=== PATIENT | female | born 2000 | race Caucasian/White ===

== ENCOUNTER 2025-04-26 14:20 | Outpatient (CLI) | payer OTHER, SELFPAY ==
[2025-04-26 15:01] LABS: Hematocrit 35.5 % (37.0-47.0); Hemoglobin 12.5 g/dL (12.2-16.2); Immature Granulocytes % 0.4 %; Mean Corpuscular HGB Conc 35.2 g/dL (31.8-35.4); Mean Corpuscular Hemoglobin 29.1 pg (27.0-31.2); Mean Corpuscular Volume 82.8 fl (81-99); Nucleated Red Blood Cells % 0 %; Platelet Count 314 K/mm3 (142-424); Red Blood Count 4.29 M/mm3 (4.20-5.40); Red Cell Distribution Width-SD 37.2 fL; White Blood Count 7.9 K/mm3 (4.8-10.8)
[2025-04-26 16:16] LABS: Hepatitis C Ab Qual. W/ RFX NEGATIVE (Negative)
[2025-04-27 05:48] LABS: Hepatitis B Surface Antigen Negative (Negative); Rubella Antibodies, IgG 1.92 index (Immune >0.99)
[2025-04-27 12:08] LABS: RPR W/RFX Titers Nonreactive (Nonreactive)
== END 2025-04-26 23:59 | disposition home or self-care (01) ==
LOC: LAB 14:21
PROVIDERS: Visit Provider Obstetrics & Gynecology
DX: Z34.01 Encounter for supervision of normal first pregnancy, first trimester (principal)
CPT/HCPCS: 36415; 80074; 84144; 84702; 85025; 86592; 86762; 86850; 87340; 87389

== ENCOUNTER 2025-06-20 10:31 | Outpatient (CLI) | payer OTHER, SELFPAY ==
--- NOTE | 2025-06-20 10:30 | US_ITS ---
PROCEDURE: US OB /MATERNAL DETAIL CLINICAL INDICATION: 20 week anatomy scan in four weeks COMPARISON: No exams were available for comparison FINDINGS: Transabdominal sonographic images of the pelvis were obtained. From her established due date she is 19 weeks 4 days. Single viable intrauterine gestation. Transverse position. Placenta: Anteriorplacenta grade 1. There is an average amount of fluid. The cervix appears satisfactory. Closed and measuring 4.09 cm in length. A posterior contraction is seen. Complete survey performed and was unremarkable on the submitted images as in PACS. No discrete anomalies identified on survey imaging by technologist. Active fetus. Three-vessel cord with satisfactory umbilical cord insertion. Cardiac views were not performed today due to position. Survey of brain & ventricles Unremarkable. Cerebellum, thalamus, choroid plexus, cisterna magna appear normal. Face and neck survey unremarkable. Profile, nasion, lips and nose appeared normal. Diaphragm and chest views unremarkable. Abdomen: Both kidneys noted and unremarkable. There is mild bilateral renal pelvis dilation measuring 5.0 mm and 4.5 mm Stomach and bladder noted and satisfactory. Spine: Survey of the spine satisfactory with no anomalies identified nor imaged. Cervical, thoracic, lower spine appear normal. Both arms and legs noted. Amniotic Fluid: Adequate. MVP 3.61 cm Measurements: Average ultrasound age 19weeks 6days. Estimated due date by ultrasound age 0211/08/2025. Estimated weight 309g BPD = 19weeks 5days HC = 19weeks 6days AC = 19weeks 6days FL = 19weeks 5days Growth Percentile= 53 Heart Rate = 144bpm Cerebellum = 19weeks 2days Humerus = 19weeks 6days HC/AC is 1.2 FL/BPD is 0.69 FL/AC is 0.22 IMPRESSION: 1. Viable fetus in the transverse position with an anterior placenta grade 1. 2. The fluid is within normal limits with an MVP 3.61 cm. 3. Cardiac scan was not performed today secondary to position. Would suggest the patient return in 2 weeks for repeat views. 4. There is mild bilateral renal pelvis dilation measuring 4.5 mm and 5.0 mm. Suggest repeat views at 28 weeks to see the renal pelves. 5. The rest of the anatomical scan appears normal. 6. biometry is consistent with the dates. Dictated by: Santos Pool MD 06/20/2025 18:22 Santos Pool MD in [facility] 06/20/2025 18:22
== END 2025-06-20 23:59 | disposition home or self-care (01) ==
LOC: RAD 10:32
PROVIDERS: PCP Obstetrics & Gynecology; Visit Provider Obstetrics & Gynecology
DX: O32.2XX0 Maternal care for transverse and oblique lie, not applicable or unspecified (principal); O35.EXX0 Maternal care for other (suspected) fetal abnormality and damage, fetal genitourinary anomalies, not applicable or unspecified; Z3A.19 19 weeks gestation of pregnancy
CPT/HCPCS: 76811

== ENCOUNTER 2025-07-18 15:12 | Outpatient (CLI) | payer OTHER, SELFPAY ==
--- NOTE | 2025-07-18 15:00 | US_ITS ---
PROCEDURE: US OB FOLLOW UP CLINICAL INDICATION: heart views COMPARISON: US US OB /MATERNAL DETAIL from 06/20/2025 FINDINGS: Transabdominal sonographic images of the pelvis were obtained. The following parameters are obtained: From her established due date she is 23weeks 4days Viable fetus in the cephalic presentation with an anterior placenta grade 1. The cervix measures 3.63 cm heart rate: 139bpm bpm. Amniotic fluid: Appears normal No obvious anomalies evident. profile seen, stomach, bladder, kidneys, three-vessel cord, four chamber heart appear normal. There is mild bilateral renal pelvis dilation measuring 3.5 mm and 4.0 mm. Considered normal at this stage in . cardiac scan: Four-chamber heart, three-vessel view, LVOT, RVOT appear normal. IMPRESSION: 1. Viable fetus in the cephalic presentation with an anterior placenta grade 1. 2. The fluid is within normal limits. 3. cardiac scan appears normal. 4. There continues to be mild bilateral renal pelvis dilation measuring 3.5 mm and 4.0 mm. Considered normal at this stage in . 5. The rest of the limited anatomical scan appears normal. Dictated by: Santos Pool MD 07/19/2025 09:39 Santos Pool MD in [facility] 07/19/2025 09:39
== END 2025-07-18 23:59 | disposition home or self-care (01) ==
LOC: RAD 15:13
PROVIDERS: PCP Obstetrics & Gynecology; Visit Provider Obstetrics & Gynecology
DX: O35.EXX0 Maternal care for other (suspected) fetal abnormality and damage, fetal genitourinary anomalies, not applicable or unspecified (principal); Z3A.23 23 weeks gestation of pregnancy; Z36.2 Encounter for other antenatal screening follow-up
CPT/HCPCS: 76816

== ENCOUNTER 2025-08-21 09:13 | Outpatient (CLI) | payer OTHER, SELFPAY ==
--- NOTE | 2025-08-21 09:30 | US_ITS ---
PROCEDURE: US OB FOLLOW UP CLINICAL INDICATION: cardiac and kidney views COMPARISON: US US OB /MATERNAL DETAIL from 06/20/2025 US US OB FOLLOW UP from 07/18/2025 FINDINGS: Transabdominal sonographic images of the pelvis were obtained. The following parameters are obtained: From her established due date she is 28weeks 3days Viable fetus in the cephalic presentation with an anterior placenta grade 1. The cervix measures 3.85 cm heart rate: 143bpm bpm. BPD: 28weeks 1day, 28 percentile HC: 28weeks 0 days, 10 percentile AC: 28weeks 0 days, 29 percentile FL: 28weeks 3days, 31 percentile HC/AC: 1.09 FL/BPD: 0.76 FL/AC: 0.23 Growth percentile: 26 Amniotic fluid: MVP 5.13 cm No obvious anomalies evident. profile seen, stomach, bladder, kidneys, three-vessel cord, four chamber heart appear normal. There is bilateral renal pelvis dilation measuring 6.0 mm and 6.3 mm normal limits IMPRESSION: 1. Viable fetus in the cephalic presentation with an anterior placenta grade 1. 2. The fluid is within normal limits with an MVP 5.13 cm. 3. There has been good interval growth with the fetus currently 26th percentile. 4. There continues to be bilateral renal pelvis dilation measuring 6.0 mm and 6.3 mm. Suggest follow-up at 36 weeks. 5. Limited anatomical scan appears normal. Dictated by: Santos Pool MD 08/21/2025 15:30 Santos Pool MD in [facility] 08/21/2025 15:30
[2025-08-21 10:56] LABS: Hematocrit 35.6 % (37.0-47.0); Hemoglobin 11.6 g/dL (12.2-16.2); Immature Granulocytes % 0.5 %; Mean Corpuscular HGB Conc 32.6 g/dL (31.8-35.4); Mean Corpuscular Hemoglobin 27.0 pg (27.0-31.2); Mean Corpuscular Volume 82.8 fl (81-99); Nucleated Red Blood Cells % 0 %; Platelet Count 275 K/mm3 (142-424); Red Blood Count 4.30 M/mm3 (4.20-5.40); Red Cell Distribution Width-SD 37.6 fL; White Blood Count 9.7 K/mm3 (4.8-10.8)
[2025-08-21 11:05] LABS: Glucose 1 Hour 149 mg/dL (74-100)
[2025-08-21 14:03] LABS: RPR W/RFX Titers Nonreactive (Nonreactive)
== END 2025-08-21 23:59 | disposition home or self-care (01) ==
PROVIDERS: PCP Obstetrics & Gynecology; Visit Provider Obstetrics & Gynecology
DX: O35.EXX0 Maternal care for other (suspected) fetal abnormality and damage, fetal genitourinary anomalies, not applicable or unspecified (principal); O99.891 Other specified diseases and conditions complicating pregnancy; M54.9 Dorsalgia, unspecified; Z3A.28 28 weeks gestation of pregnancy
CPT/HCPCS: 36415; 76816; 82947; 85025; 86592

== ENCOUNTER 2025-08-28 09:38 | Outpatient (CLI) | payer OTHER, SELFPAY ==
--- OUTSIDE RECORDS SUMMARY | 2025-08-28 09:42 | XMS_ITS | Continuity of Care Document ---
Author Organization [facility] Address [address] [place] [address] [place] [address] Assessment No assessment recorded. Plan of Treatment Reminders Order Date Submit Date Provider Last Modified By Organization Details Last Modified Time Details Appointments None recorded. Lab rapid strep group A, throat 2024 [facility], [address] [place] [address] , [place], [address], 5 09:34:56 rapid flu (A+B) 2024 025 [facility], [address] [place] [address] , [place], [address], 5 09:34:56 rapid SARS CoV + SARS CoV 2 Ag, QL IA, respirator y specimen 2024 025 [facility], [address] [place] [address] , [place], [address], 5 09:34:56 Referral None recorded. Procedures None recorded. Surgeries None recorded. Imaging None recorded. Medication Orders dexamethas one sodium phosphate 4 mg/mL injection solution 2024 025 [email or web address] Not available 09:54:37 Patient TargetsNo targets recorded. Patient InstructionsNo instructions recorded. Reason for Referral None Reported. Results Created Date Observation Date Name Description Value Unit Range Abnormal Flag Note LastModifiedBy Organization Detail LastModifiedTime Result Notes None recorded. Problems Name Problem SNOMED Code Status Onset Date Resolution Date Notes Provider Name and Address Organization Details Recorded Time Asthma 166914827 Active 2017 Megansusannah Hallman APRN [address], [place], [address] , [place] - [facility] 13:21:29 Dysmenor kalia 124632662 Completed 201701/06/2025 Megan Hallman APRN [address], [place], [address] , [place] [facility] 13:21:59 Intermit tent asthma 178612544 Completed 201901/06/2025 Megan Hallman APRN [address], [place], [address] , [place] [facility] 13:21:57 Exposure to SARS-CoV -2 Completed 201909/17/2022 Suad Stevens APRN [address], [place], [address] , [place] [facility] 12:21:20 Chest pain 35088843 Completed 202101/06/2025 Megan Hallman APRN [address], [place], [address] , [place] [facility] 13:22:03 COVID-19 979848861 Completed 202101/06/2025 Megan Hallman APRN [address], [place], [address] , [place] [facility] 13:22:01 Irregula r periods 17157064 Completed 202101/06/2025 Megan Hallman APRN [address], [place], [address] , [place] [facility] 13:21:55 Overweig ht in childhoo d 876959802 Completed 202101/06/2025 Megan Hallman APRN [address], [place], [address] , [place] [facility] 13:21:42 Liver function tests outside referenc e range 231419210 Completed 202101/06/2025 Megan Hallman, [employer] [address], [place], [address] , [place] [facility] 13:21:53 Pain of breast 85118321 Completed 202201/06/2025 Megan Hallman, [employer] [address], [place], [address] , [place] [facility] 13:21:44 Unintent ional weight gain 31927895491 4104 Completed 202201/06/2025 Megan Hallman, [employer] [address], [place], [address] , [place] [facility] 13:21:46 Lump in upper outer quadrant of right breast 66772945705 4108 Completed 202201/06/2025 Megan HallmanKEYONNAN [address], [place], [address] , [place] [facility] 13:21:50 Pregnanc y 22830176 Completed 202401/19/2025 Ruperto Clarke, RN [address], [place], [address] , [place] [facility] 15:44:28 Body mass index 25-29 - overweig 029092838 Completed 2024 BMI: 27 starting wgt: 154 HgbA1c: Megan HallmanORLANDO [address], [place], [address] , [place] [facility] 13:31:11 Body mass index 25-29 - overweig 136442222 Active 2024 BMI: 27 starting wgt: 154 HgbA1c: Megan HallmanORLANDO [address], [place], [address] , [place] [facility] 13:31:11 Overweig 029901893 Active 2024 Megan HallmanORLANDO [address], [place], [address] , [place] [facility] 13:24:47 Antenata l screenin g Completed 2024 Mat21- desires AFP- desires CF/SMA- drawn Megan Hallman, [employer] [address], [place], [address] , [place] - [facility] 5 13:34:54 Contrace ptive counseli ng Completed 2024 none Megan Hallman, [employer] [address], [place], [address] , [place] - [facility] 13:30:39 Immuniza tion due 209581708 Completed 2024 Covid- declined Tdap- Flu- declined 01/06/25 Megan Hallman, [employer] [address], [place], [address] , [place] - [facility] 13:30:53 Recreati onal drug user 824789820 Completed 2024 obhx UDS+ for THC [ ] rpt at 28wks Nissa bates DO [address], [place], [address] , [place] - [facility] 5 11:42:19 Recreati onal drug user 468634311 Active 2024 obhx UDS+ for THC [ ] rpt at 28wks Megan Hallman, [employer] [address], [place], [address] , [place] - [facility] 5 23:09:13 Gestatio n period, 7 weeks 75288623 Completed 202401/24/2025 Megan Hallman, [employer] [address], [place], [address] , [place] - [facility] 5 23:09:05 Gestatio n period, 8 weeks 07948337 Completed 202401/24/2025 Megan Hallman, MECH[employer] [address], [place], [address] , [place] - [facility] 5 23:09:09 Finding of urine substanc e level 920794538 Active 2024 Megan Hallman, [employer] [address], [place], [address] , [place] - [facility] 23:08:58 Vaginal bleeding 622960717 Active 2024 Megan Hallman, [employer] [address], [place], [address] , [place] [facility] 5 23:09:18 Acute urinary tract infectio n 433855537 Active 202401/06/25 GBS in urine Megan Hallman, [employer] [address], [place], [address] , [place] [facility] 5 23:09:38 Acute pharyngi tis 773054093 Active 2024 Adam Diaz, DO [address], [place], [address] , [place] [facility] 09:31:26 Problem Notes None recorded. Procedures Surgical History Date Name Laterality Status Provider Name and Address Organization Details Recorded Time 025 OB Ultrasound Summary completed Minnie Cardenas [place] - [facility] 01/27/2025 14:03:39 025 OB Ultrasound Summary cancelled Shruti Soares [place] - [facility] 01/12/2025 15:52:27 025 OB Ultrasound Summary completed Minnie Cardenas [place] - [facility] 01/13/2025 12:34:09 025 Medication Reconcilliation completed Ayde Li [place] [facility] 01/13/2025 09:14:19 021 OB Ultrasound Summary completed Sylvia Varela [place] [facility] 10/30/2020 15:34:05 020 Systolic B/P less than 130 mm Hg completed Belem Jay [place] [facility] 08/23/2020 11:05:14 020 Diastolic B/P less than 80 mm Hg completed Be[place] Jay [place] [facility] 08/23/2020 11:05:16 020 Medication Reconcilliation completed Linda Denise [place] [facility] 10/17/2019 16:09:08 006 Remove tonsils and adenoids completed [facility] [address], [place], [address], [place] [facility] 09/12/2016 13:31:01 Imaging Results None recorded. Procedure Notes None recorded. Medical Equipment None Reported. Allergies No known drug allergies Medications Name Sig Start Date Stop Date Status Note LastModified by Organization Details LastModified Time cyclobenz aprine 10 mg tablet 08/05 completed Not Available Not Available Not Available amoxicill in 500 mg capsule TAKE 1 CAPSULE BY MOUTH EVERY EIGHT (8) HOURS 01/06 completed Not Available Not Available Not Available Phenergan 12.5 mg rectal supposito ry insert 1 supposit ory (12.5 mg) by rectal route every 4-6 hours as needed 07/25 completed Phenerga n 12.5 mg rectal supposit ory;Mynor rded Status: Recorded on: 05/25/20 09 4:43PM;D iscontin ued Status: Disconti nued on: 07/25/20 09 8:20AM;U ser: noel;In dication : Nausea and Vomiting - (16.7870 10);Prin yung: 05/25/20 09 Not Available Not Available Not Available azithromy radha 250 mg tablet 09/15 completed Not Available Not Available Not Available ibuprofen 800 mg tablet TAKE 1 TABLET BY MOUTH EVERY 6 TO 8 HOURS 09/17 completed Not Available Not Available Not Available benzonata te 200 mg capsule Take 1 capsule 3 times a day by oral route as needed. 12/07 completed Not Available Not Available Not Available promethaz ine 12.5 mg tablet TAKE 1 TABLET BY MOUTH EVERY SIX (6) HOURS NEEDED FOR NAUSEA AND VOMITING active Not Available Not Available No t Available ondansetr on HCl 4 mg tablet TAKE TWO (2) TABLETS BY MOUTH THREE (3) TIMES A DAY NEEDED FOR 5 DAYS 09/17 completed Not Available Not Available Not Available penicilli n V potassium 500 mg tablet TAKE 1 TABLET BY MOUTH 4 TIMES DAILY UNTIL GONE 09/17 completed Not Available Not Available Not Available amoxicill in 400 mg chewable tablet chew 1 tablet by oral route 2 times a day for 10 days 03/07 completed amoxicil enrique 400 mg oral tablet,cecilia torre; Recorded Status: Recorded on: 01/31/20 10 10:57AM; Disconti nued Status: Disconti nued on: 03/07/20 10 11:05AM; User: noel;Alfreda Daly on: 02/10/20 10;Indic ation: Acute Otitis Media - (6652 00);Prin yung: 01/31/20 10 Not Available Not Available Not Available sulfameth oxazole 800 mg-trimet hoprim 160 mg tablet 10/17 completed Not Available Not Available Not Available amoxicill in 500 mg tablet take 1 tablet (500 mg) by oral route every 12 hours for 10 days 12/31 completed amoxicil enrique 500 mg oral tablet;R ecorded Status: Recorded on: 08/31/20 12 5:11PM;D iscontin ued Status: Disconti nued on: 01/01/20 13 8:28AM;U ser: [email or web address] Daly on: 09/10/20 12;Print ed: 08/31/20 12 Not Available Not Available Not Available ranitidin e 75 mg tablet take 1 tablet by oral route every 12 hours for 14 days 08/31 completed ranitidi ne HCl 75 mg oral tablet;R ecorded Status: Recorded on: 02/02/20 12 9:53AM;D iscontin ued Status: Disconti nued on: 08/31/20 12 4:53PM;U ser: [email or web address] alcala Completkurt on: 02/16/20 12;Indic ation: Dyspepsi a - (5368 06);Prin yung: 02/02/20 12 Not Available Not Available Not Available cephalexi n 500 mg capsule TAKE ONE (1) TABLET BY MOUTH EVERY SIX (6) HOURS FOR 10 DAYS 01/27 completed Not Available Not Available Not Available ranitidin e 150 mg tablet Take 1 tablet twice a day by oral route as needed. 03/17 completed Not Available Not Available Not Available promethaz ine 25 mg tablet Take 1 tablet every 4 hours by oral route as needed. 10/17 completed Not Available Not Available Not Available Tylenol 325 mg tablet Take 1 tablet every 6 hours by oral route as needed. 08/01 completed Not Available Not Available Not Available mupirocin 2 % topical ointment Apply 1 applicat ion 3 times a day by topical route. 03/17 completed Not Available Not Available Not Available Prometheg an 25 mg rectal supposito ry INSERT ONE (1) SUPPOSIT ORY RECTAL ROUTE EVERY SIX (6) HOURS FOR THREE (3) DAYS NEEDED FOR NAUSEA AND VOMITING active Not Available Not Available No t Available dexametha sone sodium phosphate 4 mg/mL injection solution Inject 4 mg by intramus cular route. 2024 active Not Available Not Available Not Avai lable ibuprofen 600 mg tablet Take 1 tablet every 6 hours by oral route for 8 days. 05/03 completed Not Available Not Available Not Available methylpre dnisolone 4 mg tablets in a dose pack TAKE 1 TABLET BY MOUTH DIRECTED 09/17 completed Not Available Not Available Not Available gentamici n 0.3 % (3 mg/gram) eye ointment apply a small amount (1/2 inch) to the lower lid of the left eye by ophthalm ic route 2 times per day 09/16 completed gentamic in 0.3 % (3 mg/gram) ophthalm ic ointment ;Recorde d Status: Recorded on: 01/01/20 13 8:40AM;D iscontin ued Status: Disconti nued on: 09/16/20 13 1:12PM;U ser: [email or web address];In dication : Bacteria l Conjunct ivitis - (06.3723 );Prin yung: 01/01/20 13 Not Available Not Available Not Available albuterol sulfate HFA 90 mcg/actua tion aerosol inhaler Inhale 2 puffs every 4 hours by inhalati on route as needed. 09/17 completed Not Available Not Available Not Available ondansetr on 4 mg disintegr ating tablet DISSOLVE ONE (1) TABLET ON THE TONGUE EVERY 6-8 HOURS active Not Available Not Available No t Available cefdinir 300 mg capsule Take 1 capsule every 12 hours by oral route. 10/25 completed Not Available Not Available Not Available drospiren one 3 mg-ethiny l estradiol 0.03 mg tablet TAKE ONE (1) TABLET EVERY DAY BY ORAL ROUTE. 05/28 completed Not Available Not Available Not Available medroxypr ogesteron e 150 mg/mL intramusc ular suspensio n INJECT 1ML INJECT INTRAMUS CULARLY EVERY 12 WEEKS 10/17 completed Not Available Not Available Not Available naproxen 500 mg tablet 09/17 completed Not Available Not Available Not Available amoxicill in 875 mg-potass ium clavulana te 125 mg tablet TAKE ONE (1) TABLET BY MOUTH TWICE A DAY FOR 7 DAYS 06/30 completed Not Available Not Available Not Available Vitamin 27 mg iron-0.8 mg tablet TAKE ONE (1) TABLET(S ) EVERY DAY BY ORAL ROUTE. 04/01 completed Not Available Not Available Not Available medroxypr ogesteron e 150 mg/mL intramusc ular syringe Inject 1 mL EVERY 12 weeks by intramus cular route. 05/03 completed Not Available Not Available Not Available Sprintec (28) 0.25 mg-0.035 mg tablet 10/19 completed Not Available Not Available Not Available cyclobenz aprine 5 mg tablet TAKE 1 TABLET BY MOUTH THREE TIMES DAILY MAY CAUSE DROWSINE SS 09/17 completed Not Available Not Available Not Available azithromy radha 1 tsp qd 05/25 completed zithromy radha 200m g;Record ed Status: Recorded on: 12/19/19 09 11:24AM; Disconti nued Status: Disconti nued on: 05/25/20 09 4:13PM;U ser: rubi anglin;Est. Completi on: 12/26/19 09;Indic ation: - (-5) Not Available Not Available Not Available 28 mg iron-800 mcg tablet TAKE ONE (1) TABLET EVERY DAY BY ORAL ROUTE active Not Available Not Available No t Available Vitamin 27 mg iron-800 mcg tablet Take 1 tablet every day by oral route. 04/01 completed Not Available Not Available Not Available Vienva 0.1 mg-20 mcg tablet TAKE 1 TABLET BY MOUTH EVERY DAY 09/17 completed Not Available Not Available Not Available Qvar RediHaler 80 mcg/actua tion HFA breath activated aerosol Inhale 2 puffs every day by inhalati on route for 30 days. 04/01 completed Not Available Not Available Not Available Vitals Date Recorded Body height Body mass index (BMI) Body weight Body temperature Heart rate Oxygen saturation Pain severity - 0-10 verbal numeric rating [Score] - Reported Systolic And Diastolic Provider Name and Address Organization Details Last Updated DateTime 5 160.02 cm 32.8 kg/m2 85677.5 9 g 98.5 [degF] 90 /min 99 % 4 114/78 mm[Hg] Nissa Reddy [place] - [facility] 5 09:23:01 Social History Question Answer Notes LastModified by Organizat ion Details LastModified Time Tobacco Smoking Status Never Smoker Nissa hernandez, [place] - [facility] 05/28/2023 10:43:32 Do You Have An Advance Directive? No [email or web address] Information not available 03/17/2018 Animal Exposure? Yes Informat ion not available 10/17/2019 Are You Blind Or Do You Have Difficulty Seeing? No [email or web address] Information not available 03/17/2018 Is Blood Transfusion Acceptable In An Emergency? Yes [email or web address] Information not available 03/17/2018 What Is Your Level Of Caffeine Consumption? Occasional [email or web address] Information not available 09/12/2016 How Much Tobacco Do You Chew? None [email or web address] Information not available 09/12/2016 In The 14 Days Before Symptom Onset, Have You Had Close Contact With A Laboratory-confi rmed COVID-19 While That Case Was Ill? No [email or web address] Information not available 09/17/2022 In The 14 Days Before Symptom Onset, Have You Had Close Contact With A Person Who Is Under Investigation For COVID-19 While That Person Was Ill? No [email or web address] Information not available 09/17/2022 Have You Been To An Area Known To Be High Risk For COVID-19? No Information not available 09/17/2022 Are You Deaf Or Do You Have Serious Difficulty Hearing? No [email or web address] Information not available 03/17/2018 What Type Of Diet Are You Following? REGULAR [email or web address] Information not available 09/12/2016 Which Illicit Or Recreational Drugs Have You Used? THC Stopped When She Found Out She Was [email or web address] Information not available 01/13/2025 Have You Processed Blood Or Body Fluids From An Ebola Virus Disease Patient Without Appropriate PPE? No [email or web address] Information not available 09/17/2022 Do You Reside In Or Have You Traveled To An Area Where Ebola Virus Transmission Is Active? No [email or web address] Information not available 09/17/2022 What Is The Highest Grade Or Level Of School You Have Completed Or The Highest Degree You Have Received? [id number] [email or web address] Information not available 01/06/2025 How Many Days Of Moderate To Strenuous Exercise, Like A Brisk Walk, Did You Do In The Last 7 Days? 0 [email or web address] Information not available 03/17/2018 On Those Days That You Engage In Moderate To Strenuous Exercise, How Many Minutes, On Average, Do You Exercise? 0 [email or web address] Information not available 03/17/2018 Have There Been Any Changes To Your Family Or Social Situation? No [email or web address] Information not available 09/17/2022 How Hard Is It For You To Pay For The Very Basics Like Food, Housing, Medical Care, And Heating? [id number] Information not available 03/17/2018 What Is The Fluoride Status Of Your Home? Non-fluoridat ed [email or web address] Information not available 09/17/2022 Are There Any Guns Present In Your Home? No Information not available 10/17/2019 Have You Recently Or Are You Planning To Travel To An Area With Zika Virus? No [email or web address] Information not available 09/17/2022 Do You Use Insect Repellent Routinely? Yes Information not available 10/17/2019 Live Alone Or With Others? With Others [email or web address] Information not available 03/17/2018 Do You Have A Medical Power Of Camp Coordinator? No [email or web address] Information not available 09/17/2022 What Was The Date Of Your Most Recent Tobacco Screening? 01/06/2025 Information not available 01/06/2025 How Many Children Do You Have? 0 Information not available 03/17/2018 Performs Monthly Self-breast Exam? Yes [email or web address] Information not available 03/17/2018 Do You Use Protection During Sex? Always Information not available 03/17/2018 What Is Your Relationship Status? Single [email or web address] Information not available 03/17/2018 Do You Use Your Seat Belt Or Car Seat Routinely? Yes Information not available 09/12/2016 Seat Belts Used Routinely Yes [email or web address] Information not available 03/17/2018 Are You Sexually Active? Yes [email or web address] Information not available 03/17/2018 Do You Have Smoke And Carbon Monoxide Detectors In Your Home? Yes [email or web address] Information not available 09/12/2016 Are You Passively Exposed To Smoke? No [email or web address] Information not available 09/17/2022 How Much Tobacco Do You Smoke? No [email or web address] Information not available 05/28/2023 General Stress Level Low [email or web address] Information not available 03/17/2018 Do You Use Sunscreen Routinely? Yes [email or web address] Information not available 09/12/2016 Has Tobacco Cessation Counseling Been Provided? Yes Information not available 01/06/2025 On What Date Was Tobacco Cessation Counseling Provided? 01/06/2025 [email or web address] Answered No To The Tobacco Cessation Counseling Provided Question On 03/17/2018. Information not available 01/06/2025 How Many Years Have You Smoked Tobacco? 0 [email or web address] Information not available 09/12/2016 Have You Used IV Drugs? No Information not available 01/06/2025 Do You Have Difficulty Walking Or Climbing Stairs? No [email or web address] Information not available 03/17/2018 Year In School 9 [email or web address] Informatio n not available 03/17/2018 What Contraceptive Method Was Reported At Start Of This Visit? None [email or web address] Information not available 05/28/2023 What Contraceptive Method Was Reported At End Of This Visit? None Information not available 01/06/2025 Do You Want To Talk About Contraception Or Prevention During Your Visit Today? No - This Question Does Not Apply To Me/I Prefer Not To Answer Information not available 01/06/2025 How Many Years Have You Used E-cigarettes Or Vape? 4 Information not available 01/06/2025 Do You Have Any Future Plans To Get ? Yes, I Want To Become [email or web address] Information not available 05/28/2023 What Is Your Reason For Having No Contraceptive Method At Start Of This Visit? Other Information not available 01/06/2025 What Is Your Reason For Having No Contraceptive Method At End Of This Visit? Other [email or web address] Information not available 01/06/2025 Sex: Female Functional Status Question Answer Note LastModified by Organizat ion Details LastModified Time Do you or have you ever used smokeless tobacco? Never used smokeless tobacco [email or web address] Information not available 01/06/2025 Are you currently employed? Yes [email or web address] Information not available 01/06/2025 Do you have transportation difficulties? No Information not available 01/06/2025 Are you able to care for yourself independently? Yes [email or web address] Information not available 09/17/2022 Do you have difficulty dressing, bathing, grooming, or toileting? No [email or web address] Information not available 03/17/2018 Do you or have you ever used e-cigarettes or vape? Former user of electronic cigarettes [email or web address] Information not available 01/13/2025 What is your exercise level? Occasional [email or web address] Information not available 09/12/2016 Do you use any illicit or recreational drugs? Yes Information not available 01/06/2025 Do you or have you ever used any other forms of tobacco or nicotine? Yes Information not available 09/17/2022 What is your level of alcohol consumption? None [email or web address] Information not available 09/12/2016 What is your status? [email or web address] Information no t available 01/06/2025 Are you able to walk independently without assistance or assistive devices? YESWOREST [email or web address] Information not available 03/17/2018 Do you have difficulty doing errands alone? No [email or web address] Information not available 03/17/2018 What is your occupation? [employer] [email or web address] Information not available 01/06/2025 Mental Status Question Answer Note LastModified by Organizat ion Details LastModified Time Do you feel stressed (tense, restless, nervous, or anxious, or unable to sleep at night)? [id number] [email or web address] Information not available 03/17/2018 Do you have difficulty concentrating, remembering or making decisions? No [email or web address] Information no t available 03/17/2018 Family History Relationship Description Onset Age of this Age Resolved Age Notes LastModified by Organization Details LastModified Time Maternal Grandmother Heart disease [email or web address] Not available 09/12 13:14:22 Maternal Grandmother Neoplasm of brain [email or web address] Not available 2024 12:51:36 Mother Hyperlipidem ia [email or web address] Not available 2024 12:51:36 Mother Essential hypertension [email or web address] Not available 01/2025 12:51:36 Mother Diabetes mellitus [email or web address] Not available 2017 15:46:12 Maternal Grandfather Myocardial infarction [email or web address] Not available 01/06 12:51:36 Maternal Aunt Female infertility [email or web address] Not available 01/2025 12:51:36 Maternal Aunt Endometriosi s (clinical) [email or web address] Not available 01/2025 12:51:36 Medical History Condition Response Pancreatitis N Coronary Artery Disease N Gout N Other N Atrial Fibrillation N congenital heart disease N Kidney Stones N Blood Diseases N Hyperthyroidism N Blood Transfusion N Rheumatoid arthritis N Erectile Dysfunction N amputation N Colonoscopy N Skin Lesions N COPD N Depression N Pneumonia N Incontinence N Murmur N Edema N Alzheimer's Disease N Migraine Headaches N Tobacco Abuse N Anxiety Disorder N Hemorrhoids N Muscle, Joint, or Bone Problems N Obesity N Vision or Eye Problems N Arthritis N Restless Leg Syndrome N Polyps N Infertility N Mental Disorder N Carpal Tunnel N Acid Reflux (GERD) N Cancer N Varicosities N Stroke N Tendonitis N Crohn's Disease N Hypercholesterolemia N Skin Cancer N Headaches N Fibromyalgia N Anal Fissure N Irritable Bowel Syndrome N Kidney Disease N Heart Problems N Ear or Hearing Problems N Hospitalizations N Gallstones N Kidney or Bladder Problems N Goiter N Acne N Skin Problems N Eating Disorder N Christensen's Esophagus N Hypertriglyceridemia N MRSA exposure N Constipation N Embolism N Vitamin B12 Deficiency N Deviated Septum N Tuberculosis N AIDS/HIV N Myocardial Infarction N Asthma N Mitral Valve Disorders N Vertigo N Hepatitis N Thyroid Cancer N Neuropathy N Pulmonary Embolism N History of DVT N Herniated Disc N Chronic Ear Infections N Chicken Pox N Autism Spectrum Disorder (ASD) N Von Willebrands Disease N Thrombophilias N Breast Cancer N Hernia N Plantar Fasciitis N Hospital Admission Other Than N Lung Disease N Hypothyroidism N Defects or Inherited Disease N Developmental or Behavioral Disorders N Breast Problem N Difficulty Swallowing N Ovarian Cyst N Anesthesia Complications N Testosterone Deficiency N Meniere's disease N Head Injury/Concussion N Interstitial Cystitis N Congenital Anomalies N Hypoglycemia N Blood clot N Vitamin D Deficiency N Cellulitis N Endometriosis N Fracture N Bladder or Kidney Problems N Liver Disease N Panic Disorder N Schizophrenia N Concussion N Spina Bifida N Allergies/Hayfever N Osteoarthritis N Parkinson's Disease N Disc Protrusion N STI N Esophagitis N Angina N Thyroid Problems N GI Problems N ADD/ADHD N Anemia N Multiple Sclerosis N Abnormal PAP N Lumbago N Mental Illness N Psychiatric Illness N Diabetes N Ovarian Cancer N Bedwetting N Degenerative Disc Disease N Seizures/Epilepsy N Congestive Heart Failure (CHF) N Hyperlipidemia N Syncope N Insomnia N Eczema N Abuse/Domestic Violence N Attention Deficient Disorder N Diverticulitis N Dementia N Ulcerative colitis N Cerebrovascular Disease N Depression N Guillain-Hague N Sleep Apnea N Aneurysm N Bronchitis N Heart Disease N Suicidal Ideation N Pre-Eclampsia N Hypertension N Osteoporosis N Gynecological History Statement/Question Response Abnormal Pap N Flow Moderate Date of LMP 11/16/2024 On BCP's at Conception? N STIs/STDs N HPV Vaccine N Duration of Flow (days) 7 Current Control Method Age at Menarche 13 Last Annual Exam/Provider 09/17/2022 w/D T Frequency of Cycle (Q days) 30 Sexually Active? Y Date of Last Cervical Culture 09/17/2022 Menses Monthly Y Sexual Problems? N LMP Definite Desired Control Method None Hormone Replacement Therapy N Obstetrics History GPAL:G 1 P 0 0 1 0 Type Value Full Term 0 Spontaneous 1 Total 1 Immunizations Vaccine Type Date Status Note Provider Name and Address Organization Details Recorded Time Hep B, adolescent or pediatric 06/07/20 02 completed Not Available [facility] 07/13/2016 13:14:13 Hep B, adolescent or pediatric 07/07/20 02 completed Not Available [facility] 07/13/2016 13:14:13 Hep B, adolescent or pediatric 05/10/20 03 completed Not Available [facility] 07/13/2016 13:14:13 DTaP 07/07/20 02 completed Not Available [facility] 07/13/2016 13:14:13 DTaP 09/12/20 02 completed Not Available [facility] 07/13/2016 13:14:13 DTaP 11/10/19 03 completed Not Available [facility] 07/13/2016 13:14:13 DTaP 08/11/20 03 completed Not Available [facility] 07/13/2016 13:14:13 DTaP 05/11/20 06 completed Not Available [facility] 07/13/2016 13:14:14 Hib (PRP-OMP) 07/07/20 02 completed TRUE [place] - [facility] 12/28/2024 08:48:32 Hib (PRP-OMP) 09/12/20 02 completed Nissa Almazanann null, [place] - [facility] 12/28/2024 08:48:32 Hib (PRP-OMP) 05/10/20 03 completed Nissa Sher null, [place] - [facility] 12/28/2024 08:48:32 IPV 07/07/20 02 completed Not Available [facility] 07/13/2016 13:14:14 IPV 09/12/20 02 completed Not Available [facility] 07/13/2016 13:14:14 IPV 05/10/20 03 completed Not Available [facility] 07/13/2016 13:14:24 IPV 05/11/20 06 completed Not Available [facility] 07/13/2016 13:14:24 MMR 08/11/20 03 completed Not Available [facility] 07/13/2016 13:14:24 MMR 05/11/20 06 completed Not Available [facility] 07/13/2016 13:14:24 meningococcal MCV4P 03/31/20 14 completed Not Available [facility] 11/05/2019 02:21:32 HPV, unspecified formulation 03/31/20 14 completed Nissa Almazanann null, [place] - [facility] 12/28/2024 08:48:32 HPV, unspecified formulation 05/12/20 14 completed Nissa Sher null, [place] - [facility] 12/28/2024 08:48:32 HPV, unspecified formulation 10/02/20 14 completed Nissa Sher null, [place] - [facility] 12/28/2024 08:48:32 Tdap 03/31/20 14 completed Not Available [facility] 11/05/2019 02:21:32 Influenza, split virus, quadrivalent, preservative 09/17/20 22 cancelled patient objection Suad Stevens, [employer] [address], [place], [address], [place] - [facility] 09/17/2022 15:04:47 Hep A, ped/adol, 2 dose 12/08/19 18 completed Not Available [facility] 10/22/2019 03:54:54 meningococcal MCV4P 05/07/20 18 completed Not Available [facility] 10/22/2019 03:55:08 Hep A, ped/adol, 2 dose 07/20/20 18 completed Not Available [facility] 10/22/2019 03:55:14 Influenza, split virus, quadrivalent, preservative 10/19/19 20 completed Not Available [facility] 10/22/2019 03:56:18 Past Encounters Encounter ID Performer Location Encounter Start Date Encounter Closed Date Diagnosis/Indication Diagnosis SNOMED-CT Code Diagnosis ICD10 Code Diagnosis IMO Codes Diagnosis Note [id number] Adam Diaz DO [place] [address] [place] [address] 06/30/2025 09:10:48 06/30/2025 10:08:24 Acute pharyngitis 713663097 J02.9 [id number] 25 yo F (21 week ), presenting for acute pharyngiti s symptoms. Strep/flu/ COVID negative, no evidence of bacterial infection at this time, will provide decadron 4mg for symptoms, follow up as needed. Health Concerns Section Related Observation LastModified by Organization Detai ls LastModified Time None Recorded Concern Status LastModified by Organization Details LastModified Time None Recorded Payers Encounter Date Sequence Insurance Name Policy Number Policy Estrella Covered Member ID Estrella Member ID Guarantor Name 06/30/2025 1 [employer] [facility] (MEDICAID HMO) Marianne Cole [id number] Bri Cole Notes Date Note Type Note Provider Name and Address Organization Details Recorded Time 06/30/2025 text/html Upper Respirator y SymptomsReported by PatientUpper Respiratory SymptomsFor quality, patient reportsproductive cough,sharp throat pain, andcongested. For context, patient reportssick contactbut reportsno foreign travel. For associated symptoms, patient reportssore throatbut reportsno sputum production,no shortness of breath,no wheezing,no change in number of pillows needed to sleep at night,no sweats,no fever,no significant weight loss,no morning cough,no vomiting,no diarrhea,no rash, andno nausea. For location, patient reportshead,chest, andthroat. For severity, patient reportsmild. For onset/timing, patient reportsgradual. For modifying factors, patient reportsotc medication.ROS as noted in the HPI Pt. presents today with complaints of cough, sore throat, and congestion. Reports most bothersome symptoms is sore throat, describes as scratchy and irritated. Difficult to swallow. Denies any fever or chills. Does report sick contacts. Reports that she is 21 weeks , is receiving OBGYN care at [facility] in [place], [place]. Adam Diaz, DO [address], [place], [address], [place] - [facility] 06/30/2025 10:47:54 OBGyn Episode No OBEpisode recorded.
--- OUTSIDE RECORDS SUMMARY | 2025-08-28 09:42 | XMS_ITS | Data Portability ---
Author Organization [facility] Address [address] [place] [address] Assessment Encounter Date Assessment Date Assessment LastModified by Organization Details LastModified Time 01/13/2025 01/13/2025 -Medications were reviewed and any necessary updates and renewals were made, patient instructed to complete as prescribed. -The potential side effects of medications were discussed. -Counseling was done on care goals and ways to prevent future hospitalizatio ns. -Further treatment per orders listed below. [email or web address] Not available 01/13/2025 09:14:19 01/16/2025 01/16/2025 24 yo here for f/u on SAB Not available 01/16/2025 16:20:54 01/27/2025 01/27/2025 24 yo here for f/u after miscarriage Not available 01/28/2025 14:20:25 Plan of Treatment Reminders Order Date Submit Date Provider Last Modified By Organization Details Last Modified Time Details Appointments None record ed. Lab rapid strep group A, throat 2024 025 [facility], [address] [place] [address] , [place], [address], 09:34:56 rapid flu (A+B) 2024 025 [facility], [address] [place] [address] , [place], [address], 09:34:56 rapid SARS CoV + SARS CoV 2 Ag, QL IA, respir atory specim en 2024 025 pete [facility], [address] [place] [address] , [place], [address], 5 09:34:56 HCG, intact + beta subuni t, quant, serum or plasma 2024 025 [facility], [address] [place] [address], [address], 5 09:31:28 urinal ysis, dipsti ck 2024 025 homero [facility], [address] [place] [address] , [place], [address], 5 12:11:18 drug screen , 14 drugs (detec timed) , urine 2024 025 [facility], [address], [address], [place], [address], 5 20:16:34 HbA1c (hemog lobin A1c), blood 2024 025 [facility], [address], [place] [address], [place], [address], 5 20:14:04 varice lla zoster virus IgG Ab, QL, IA, serum 2024 025 [facility], [address], [address], [place], [address], 5 20:14:05 prenat al panel 2024 025 [facility], [address], [place], [place], [address], 5 20:14:02 pregna ncy test, urine [address] [facility], [address] [place] [address] , [place], [address], 5 13:36:39 urinal ysis, dipsti ck [address] [facility], [address] [place] [address] , [place], [address], 5 13:36:39 unlist ed lab - inheri test(R )CF / sma panel 2024 025 [facility], [address], [address], [place], [address], 20:14:03 Referral None record ed. Procedures None record ed. Surgeries None record ed. Imaging US, obstet claudia, 1st trimes ter 2024 025 [facility], [address] [place] [address] , [place], [address], 5 14:21:07 US, obstet claudia, 1st trimes ter 2024 025 [email or web address] [facility], [address] [place] [address] , [place], [address], 5 13:20:38 Medication Orders dexame thason e sodium phosph ate 4 mg/mL inject ion soluti on 2024 025 [email or web address] Not available 09:54:37 Prenat al 28 mg iron-8 00 mcg tablet 2024 025 [email or web address] - [address], [place], [address], 5 13:36:38 Patient TargetsNo targets recorded. Patient Instructions Encounter Date Encounter Id Patient Instructions Last Modified By Organization Details Last Modified Time 01/06/2025 [id number] nutrition during : care instructions Not available 01/06/2025 13:36:38 body mass index: care instructions Not available 01/06/2025 13:36:37 learning about healthy weight Not available 01/06/2025 13:36:38 -Discussed all lab work ordered today, pt consents to all. We will call abnormal test results in 7-10 days. Patient is advised that they will be notified of the availability of normal results from [facility] by phone call, text or email. Not available 01/06/2025 13:25:09 01/13/2025 [id number] body mass index: care instructions [email or web address] Not available 01/13/2025 12:11:18 learning about healthy weight [email or web address] Not available 01/13/2025 12:11:18 01/16/2025 [id number] miscarriage: car e instructions Not available 01/16/2025 13:53:50 Suspect complete d as bleeding has tapered off. Plan f/u in 2 wk with US to ensure completed Not available 01/16/2025 16:21:41 01/27/2025 [id number] Doing well after SAB Declines contraception Not available 01/28/2025 14:21:21 Reason for Referral None Reported. Results Created Date Observation Date Name Description Value Unit Range Abnormal Flag Note LastModifiedBy Organization Detail LastModifiedTime 01/07/2001/12/2025 COMPL IANCE DRUG JAY SIS, UR summary report (summary) FINAL ===== ===== ===== ===== ===== ===== ===== ===== ===== ===== ===== ===== ===== === TOXAS SURE COMP DRUG JAY SIS,U R ===== ===== ===== ===== ===== ===== ===== ===== ===== ===== ===== ===== ===== === Test Resul t Flag Units Drug Prese nt Carbo xy-TH C 103 ng/mg creat Carbo xy-TH C is a metab olite of tetra hydro canna binol (THC) . Sourc e of THC is most commo nly herba l marij uana or marij uana- based produ cts, but THC is also prese nt in a sched uled presc ripti on medic ation . Trace amoun ts of THC can be prese nt in hemp and canna bidio l (CBD) produ cts. This test is not inten ded to disti nguis h betwe en delta -9-te trahy droca nnabi nol, the predo minan t form of THC in most herba l or marij uana- based produ cts, and delta -8-te trahy droca nnabi nol. ===== ===== ===== ===== ===== ===== ===== ===== ===== ===== ===== ===== ===== === Test Resul t Flag Units Ref Range Creat inine 198 mg/dL >=20 ===== ===== ===== ===== ===== ===== ===== ===== ===== ===== ===== ===== ===== === Decla red Medic ation s: Medic ation list was not provi ded. ===== ===== ===== ===== ===== ===== ===== ===== ===== ===== ===== ===== ===== === For clini milo consu ltati on, pleas e call . ===== ===== ===== ===== ===== ===== ===== ===== ===== ===== ===== ===== ===== === Not Available [facility] ([facility]) [address] [facility], [place], [address], 01/12/2025 20:16:34 01/07/20 25 01/12/2025 COMPL IANCE DRUG JAY SIS, UR pdf . Not Available [facility] ([facility]) [address] [facility], [place], [address], 01/12/2025 20:16:34 01/07/20 25 01/07/2025 PREGN NICOLA, INITI AL SCREE N HBsAg screen Negati ve negati ve Not Available [facility] ([facility]) [address] [facility], [place], [address], 01/24/2025 20:14:02 01/07/20 25 01/07/2025 PREGN NICOLA, INITI AL SCREE N HCV Ab Non Reacti ve non reacti ve Not Available [facility] ([facility]) [address] [facility], [place], [address], 01/24/2025 20:14:02 01/07/20 25 01/07/2025 PREGN NICOLA, INITI AL SCREE N interpretati on: Commen t Not infec yung with HCV unles s early or acute infec tion is suspe cted (whic h may be delay ed in an immun ocomp romis ed indiv idual ), or other evide nce exist s to indic ate HCV infec tion. Not Available [facility] ([facility]) [address] [facility], [place], [address], 01/24/2025 20:14:02 01/07/20 25 01/07/2025 PREGN NICOLA, INITI AL SCREE N RPR Non Reacti ve non reacti ve Not Available [facility] ([facility]) [address] [facility], [place], [address], 01/24/2025 20:14:02 01/07/20 25 01/07/2025 PREGN NICOLA, INITI AL SCREE N rubella antibodies, IgG 2.68 index immune >0.99 Non-i mmune <0.90 Equiv ocal 0.90 - 0.99 Immun e >0.99 Not Available [facility] ([facility]) [address] [place], [address], 01/24/2025 20:14:02 01/07/20 25 01/07/2025 PREGN NICOLA, INITI AL SCREE N HIV Ab/P24 Ag screen Non Reacti ve non reacti ve HIV-1 /HIV- 2 antib odies and HIV-1 p24 antig en were NOT detec yung. There is no labor atory evide nce of HIV infec tion. HIV Negat karen Not Available [facility] ([facility]) [address] [place], [address], 01/24/2025 20:14:02 01/07/20 25 01/07/2025 PREGN NICOLA, INITI AL SCREE N WBC 7.2 x10e3 /uL 3.4-10 .8 normal Not Available [facility] ([facility]) [address] [place], [address], 01/24/2025 20:14:02 01/07/20 25 01/07/2025 PREGN NICOLA, INITI AL SCREE N RBC 5.16 x10e6 /uL 3.77-5 .28 normal Not Available [facility] ([facility]) [address] [place], [address], 01/24/2025 20:14:02 01/07/20 25 01/07/2025 PREGN NICOLA, INITI AL SCREE N hemoglobin 14.5 g/dL 11.1-1 5.9 normal Not Available [facility] ([facility]) [address] [place], [address], 01/24/2025 20:14:02 01/07/20 25 01/07/2025 PREGN NICOLA, INITI AL SCREE N hematocrit 42.7 % 34.0-4 6.6 normal Not Available [facility] ([facility]) [address] [place], [address], 01/24/2025 20:14:02 01/07/20 25 01/07/2025 PREGN NICOLA, INITI AL SCREE N MCV 83 fL 79-97 normal Not Available [facility] ([facility]) [address] [place], [address], 01/24/2025 20:14:02 01/07/20 25 01/07/2025 PREGN NICOLA, INITI AL SCREE N MCH 28.1 pg 26.6-3 3.0 normal Not Available [facility] ([facility]) [address] [place], [address], 01/24/2025 20:14:02 01/07/20 25 01/07/2025 PREGN NICOLA, INITI AL SCREE N MCHC 34.0 g/dL 31.5-3 5.7 normal Not Available [facility] ([facility]) [address] [place], [address], 01/24/2025 20:14:02 01/07/20 25 01/07/2025 PREGN NICOLA, INITI AL SCREE N RDW 12.3 % 11.7-1 5.4 Not Available [facility] ([facility]) [address] [place], [address], 01/24/2025 20:14:02 01/07/20 25 01/07/2025 PREGN NICOLA, INITI AL SCREE N platelets 346 x10e3 /uL 150-45 0 normal Not Available [facility] ([facility]) [address] [place], [address], 01/24/2025 20:14:02 01/07/20 25 01/07/2025 PREGN NICOLA, INITI AL SCREE N neutrophils 66 % not estab. normal Not Available [facility] ([facility]) [address] [facility], [place], [address], 01/24/2025 20:14:02 01/07/20 25 01/07/2025 PREGN NICOLA, INITI AL SCREE N lymphs 25 % not estab. normal Not Available [facility] ([facility]) [address] [facility], [place], [address], 01/24/2025 20:14:02 01/07/20 25 01/07/2025 PREGN NICOLA, INITI AL SCREE N monocytes 6 % not estab. normal Not Available [facility] ([facility]) [address] [facility], [place], [address], 01/24/2025 20:14:02 01/07/20 25 01/07/2025 PREGN NICOLA, INITI AL SCREE N eos 2 % not estab. normal Not Available [facility] ([facility]) [address] [facility], [place], [address], 01/24/2025 20:14:02 01/07/20 25 01/07/2025 PREGN NICOLA, INITI AL SCREE N basos 1 % not estab. normal Not Available [facility] ([facility]) [address] [facility], [place], [address], 01/24/2025 20:14:02 01/07/20 25 01/07/2025 PREGN NICOLA, INITI AL SCREE N immature cells LD TEACHER Not Available [facility] ([facility]) [address] [facility], [place], [address], 01/24/2025 20:14:02 01/07/20 25 01/07/2025 PREGN NICOLA, INITI AL SCREE N neutrophils (absolute) 4.8 x10e3 /uL 1.4-7. 0 normal Not Available [facility] ([facility]) [address] [facility], [place], [address], 01/24/2025 20:14:02 01/07/20 25 01/07/2025 PREGN NICOLA, INITI AL SCREE N lymphs (absolute) 1.8 x10e3 /uL 0.7-3. 1 normal Not Available [facility] ([facility]) [address] [place], [address], 01/24/2025 20:14:02 01/07/20 25 01/07/2025 PREGN NICOLA, INITI AL SCREE N monocytes(ab solute) 0.5 x10e3 /uL 0.1-0. 9 normal Not Available [facility] ([facility]) [address] [place], [address], 01/24/2025 20:14:02 01/07/20 25 01/07/2025 PREGN NICOLA, INITI AL SCREE N eos (absolute) 0.1 x10e3 /uL 0.0-0. 4 normal Not Available [facility] ([facility]) [address] [place], [address], 01/24/2025 20:14:02 01/07/20 25 01/07/2025 PREGN NICOLA, INITI AL SCREE N baso (absolute) 0.1 x10e3 /uL 0.0-0. 2 normal Not Available [facility] ([facility]) [address] [place], [address], 01/24/2025 20:14:02 01/07/20 25 01/07/2025 PREGN NICOLA, INITI AL SCREE N immature granulocytes 0 % not estab. Not Available [facility] ([facility]) [address] [place], [address], 01/24/2025 20:14:02 01/07/20 25 01/07/2025 PREGN NICOLA, INITI AL SCREE N immature grans (abs) 0.0 x10e3 /uL 0.0-0. 1 Not Available [facility] ([facility]) [address] [place], [address], 01/24/2025 20:14:02 01/07/20 25 01/07/2025 PREGN NICOLA, INITI AL SCREE N NRBC LD TEACHER Not Available [facility] ([facility]) [address] [place], [address], 01/24/2025 20:14:02 01/07/20 25 01/07/2025 PREGN NICOLA, INITI AL SCREE N hematology comments: LD TEACHER Not Available [facility] ([facility]) [address] [place], [address], 01/24/2025 20:14:02 01/07/20 25 01/07/2025 PREGN NICOLA, INITI AL SCREE N specific gravity 1.029 1.005- 1.030 normal Not Available [facility] ([facility]) [address] [place], [address], 01/24/2025 20:14:02 01/07/20 25 01/07/2025 PREGN NICOLA, INITI AL SCREE N pH 6.5 5.0-7. 5 normal Not Available [facility] ([facility]) [address] [place], [address], 01/24/2025 20:14:02 01/07/20 25 01/07/2025 PREGN NICOLA, INITI AL SCREE N urine-color Yellow yellow Not Available [facility] ([facility]) [address] [place], [address], 01/24/2025 20:14:02 01/07/20 25 01/07/2025 PREGN NICOLA, INITI AL SCREE N appearance Clear clear Not Available [facility] ([facility]) [address] [place], [address], 01/24/2025 20:14:02 01/07/20 25 01/07/2025 PREGN NICOLA, INITI AL SCREE N WBC esterase Negati ve negati ve Not Available [facility] ([facility]) [address] [place], [address], 01/24/2025 20:14:02 01/07/20 25 01/07/2025 PREGN NICOLA, INITI AL SCREE N protein Trace negati ve/tra ce Not Available [facility] ([facility]) [address] [place], [address], 01/24/2025 20:14:02 01/07/20 25 01/07/2025 PREGN NICOLA, INITI AL SCREE N glucose Negati ve negati ve Not Available [facility] ([facility]) [address] [place], [address], 01/24/2025 20:14:02 01/07/20 25 01/07/2025 PREGN NICOLA, INITI AL SCREE N ketones Trace negati ve abnormal Not Available [facility] ([facility]) [address] [place], [address], 01/24/2025 20:14:02 01/07/20 25 01/07/2025 PREGN NICOLA, INITI AL SCREE N occult blood Negati ve negati ve Not Available [facility] ([facility]) [address] [place], [address], 01/24/2025 20:14:02 01/07/20 25 01/07/2025 PREGN NICOLA, INITI AL SCREE N bilirubin Negati ve negati ve Not Available [facility] ([facility]) [address] [place], [address], 01/24/2025 20:14:02 01/07/20 25 01/07/2025 PREGN NICOLA, INITI AL SCREE N urobilinogen ,semi-qn 1.0 mg/dL 0.2-1. 0 normal Not Available [facility] ([facility]) [address] [place], [address], 01/24/2025 20:14:02 01/07/20 25 01/07/2025 PREGN NICOLA, INITI AL SCREE N nitrite, urine Negati ve negati ve Not Available [facility] ([facility]) [address] [facility], [place], [address], 01/24/2025 20:14:02 01/07/20 25 01/07/2025 PREGN NICOLA, INITI AL SCREE N microscopic examination Commen t Micro scopi c follo ws if indic ated. Not Available [facility] ([facility]) [address] [facility], [place], [address], 01/24/2025 20:14:02 01/07/20 25 01/07/2025 PREGN NICOLA, INITI AL SCREE N microscopic examination See below: Micro scopi c was indic ated and was perfo rmed. Not Available [facility] ([facility]) [address] [facility], [place], [address], 01/24/2025 20:14:02 01/07/20 25 01/07/2025 PREGN NICOLA, INITI AL SCREE N WBC None seen /hpf 0 - 5 Not Available [facility] ([facility]) [address] [facility], [place], [address], 01/24/2025 20:14:02 01/07/20 25 01/07/2025 PREGN NICOLA, INITI AL SCREE N RBC None seen /hpf 0 - 2 Not Available [facility] ([facility]) [address] [facility], [place], [address], 01/24/2025 20:14:02 01/07/20 25 01/07/2025 PREGN NICOLA, INITI AL SCREE N epithelial cells (non renal) 0-10 /hpf 0 - 10 Not Available [facility] ([facility]) [address] [place], [address], 01/24/2025 20:14:02 01/07/20 25 01/07/2025 PREGN NICOLA, INITI AL SCREE N epithelial cells (renal) LD TEACHER Not Available [facility] ([facility]) [address] [facility], [place], [address], 01/24/2025 20:14:02 01/07/20 25 01/07/2025 PREGN NICOLA, INITI AL SCREE N casts None seen /lpf none seen Not Available [facility] ([facility]) [address] [facility], [place], [address], 01/24/2025 20:14:02 01/07/20 25 01/07/2025 PREGN NICOLA, INITI AL SCREE N cast type LD TEACHER Not Available [facility] ([facility]) [address] [facility], [place], [address], 01/24/2025 20:14:02 01/07/20 25 01/07/2025 PREGN NICOLA, INITI AL SCREE N crystals LD TEACHER Not Available [facility] ([facility]) [address] [facility], [place], [address], 01/24/2025 20:14:02 01/07/20 25 01/07/2025 PREGN INCOLA, INITI AL SCREE N crystal type LD TEACHER Not Available [facility] ([facility]) [address] [facility], [place], [address], 01/24/2025 20:14:02 01/07/20 25 01/07/2025 PREGN NICOLA, INITI AL SCREE N mucus threads LD TEACHER Not Available [facility] ([facility]) [address] [facility], [place], [address], 01/24/2025 20:14:02 01/07/20 25 01/07/2025 PREGN NICOLA, INITI AL SCREE N bacteria None seen none seen/f ew Not Available [facility] ([facility]) [address] [facility], [place], [address], 01/24/2025 20:14:02 01/07/20 25 01/07/2025 PREGN NICOLA, INITI AL SCREE N yeast LD TEACHER Not Available [facility] ([facility]) [address] [facility], [place], [address], 01/24/2025 20:14:02 01/07/20 25 01/07/2025 PREGN NICOLA, INITI AL SCREE N trichomonas LD TEACHER Not Available [facility] ([facility]) [address] [facility], [place], [address], 01/24/2025 20:14:02 01/07/20 25 01/07/2025 PREGN NICOLA, INITI AL SCREE N comment LD TEACHER Not Available [facility] ([facility]) [address] [facility], [place], [address], 01/24/2025 20:14:02 01/07/20 25 01/09/2025 PREGN NICOLA, INITI AL SCREE N ABO grouping O Not Available [facility] ([facility]) [address] [facility], [place], [address], 01/24/2025 20:14:02 01/07/20 25 01/09/2025 PREGN NICOLA, INITI AL SCREE N Rh factor Positi ve Pleas e note: Prior recor ds for this patie nt's ABO / Rh type are not avail able for addit ional verif icati on. Not Available [facility] ([facility]) [address] [facility], [place], [address], 01/24/2025 20:14:02 01/07/20 25 01/09/2025 PREGN NICOLA, INITI AL SCREE N antibody screen Negati ve negati ve Not Available [facility] ([facility]) [address] [facility], [place], [address], 01/24/2025 20:14:02 01/07/20 25 01/09/2025 PREGN NICOLA, INITI AL SCREE N chlamydia trachomatis, ALANIS Negati ve negati ve Not Available [facility] ([facility]) [address] [facility], [place], [address], 01/24/2025 20:14:02 01/07/20 25 01/09/2025 PREGN NICOLA, INITI AL SCREE N neisseria gonorrhoeae, ALANIS Negati ve negati ve Not Available [facility] ([facility]) [address] [place], [address], 01/24/2025 20:14:02 01/07/20 25 01/10/2025 PREGN NICOLA, INITI AL SCREE N urine culture,pren atal, w/gbs Final report abnormal Not Available [facility] ([facility]) [address] [facility], [place], [address], 01/24/2025 20:14:02 01/07/20 25 01/10/2025 PREGN NICOLA, INITI AL SCREE N result 1 COMMEN T abnormal Beta hemol ytic Strep tococ cus, group B Penic illin and ampic illin are drugs of choic e for treat ment of beta- hemol ytic strep tococ milo infec tions . Susce ptibi lity testi ng of penic illin s and other beta- lacta m agent s, such as cefaz lissy, appro los by the FDA for treat ment of beta- hemol ytic strep tococ milo infec tions need not be perfo rmed routi kory becau se nonsu scept ible isola kelsey are extre vonda rare. Other susce ptibi litie s provi ded as fox nce in treat ment of urina ry tract infec tions only. Clind amyci n susce ptibi lity provi ded as fox nce for intra partu m proph ylaxi s only (CDC 2010) . Testi ng for induc ible clind amyci n resis tance was perfo rmed using eryth romyc in and clind amyci n in the D-zon e test. 10,00 0-25, 000 colon y formi ng units per mL This isola te does not demon strat e induc ible clind amyci n resis tance in vitro by D test. Not Available [facility] ([facility]) [address] [facility], [place], [address], 01/24/2025 20:14:02 01/07/20 25 01/10/2025 PREGN NICOLA, INITI AL SCREE N antimicrobia l susceptibili ty Commen t S = Susce ptibl e; I = Inter media te; R = Resis tant P = Posit karen; N = Negat karen MICS are expre ssed in micro grams per mL Antib iotic RSLT# 1 RSLT# 2 RSLT# 3 RSLT# 4 Cefep yoan S Cefot axime S Ceftr iaxon e S Clind amyci n R Not Available [facility] ([facility]) [address] [facility], [place], [address], 01/24/2025 20:14:02 01/07/20 25 01/24/2025 INHER ITEST (R)CF / SMA PANEL genes Commen t 2 genes Not Available [facility] ([facility]) [address] [facility], [place], [address], 01/24/2025 20:14:03 01/07/20 25 01/24/2025 INHER ITEST (R)CF / SMA PANEL ethnicity Commen t Not Provi ded Not Available [facility] ([facility]) [address] [facility], [place], [address], 01/24/2025 20:14:03 01/07/20 25 01/24/2025 INHER ITEST (R)CF / SMA PANEL specimen type Commen t Whole Blood Not Available [facility] ([facility]) [address] [facility], [place], [address], 01/24/2025 20:14:03 01/07/20 25 01/24/2025 INHER ITEST (R)CF / SMA PANEL genetic counselor LD TEACHER Not Available [facility] ([facility]) [address] [facility], [place], [address], 01/24/2025 20:14:03 01/07/20 25 01/24/2025 INHER ITEST (R)CF / SMA PANEL indication Commen t Sanjuana er Test / Scree truong Not Available [facility] ([facility]) [address] [facility], [place], [address], 01/24/2025 20:14:03 01/07/20 25 01/24/2025 INHER ITEST (R)CF / SMA PANEL result: Commen t NEGAT KAREN Not Available [facility] ([facility]) [address] [facility], [place], [address], 01/24/2025 20:14:03 01/07/20 25 01/24/2025 INHER ITEST (R)CF / SMA PANEL interpretati on Commen t Negat karen Resul ts Disor ders (Gene ) Resul t Inter preta tion Cysti c fibro sis NEGAT KAREN This resul t reduc es, CFTR NM_00 0492. 4 but does not elimi rupert, the risk to be a sanjuana er. Risk: NOT at an incre ased risk for an affec yung pregn nicola. Spina l muscu lar NEGAT KAREN : 3 This resul t reduc es, atrop hy SMN1 (or more) but does not NM_00 0344. 4 copie s of elimi rupert, the risk SMN1. to be a sanjuana er. Risk: NOT at an incre ased risk for an affec yung pregn nicola. Not Available [facility] ([facility]) [address] [facility], [place], [address], 01/24/2025 20:14:03 01/07/20 25 01/24/2025 INHER ITEST (R)CF / SMA PANEL general comments LD TEACHER Not Available [facility] ([facility]) [address] [facility], [place], [address], 01/24/2025 20:14:03 01/07/20 25 01/24/2025 INHER ITEST (R)CF / SMA PANEL recommendati ons Commen t If the above resul t is posit karen, tenisha ic couns eling is recom carlos d to discu ss the poten tial clini milo and/o r repro ducti ve impli catio ns, as well as recom menda tions for testi ng famil y membe rs and, when appli cable , this indiv idual 's partn er. Tenisha ic couns eling servi charles are avail able. To acces s [facility] Tenisha ic Couns brenton holland e visit [email or web address] :[email or web address] om/ge netic -coun junito g or call ([phone]) GC-CA LLS ([phone]). Not Available [facility] ([facility]) [address] [facility], [place], [address], 01/24/2025 20:14:03 01/07/20 25 01/24/2025 INHER ITEST (R)CF / SMA PANEL additional clinicalinfo rmation LD TEACHER Not Available [facility] ([facility]) [address] [facility], [place], [address], 01/24/2025 20:14:03 01/07/20 25 01/24/2025 INHER ITEST (R)CF / SMA PANEL comments Commen t This inter preta tion is based on the clini milo infor matio n provi ded and the curre nt under stand ing of the molec ular tenisha ics of the disor rafaela(s ) teste d. Infor matio n about the disor rafaela(s ) teste d is avail able at https :[email or web address] [email or web address] om. Not Available [facility] ([facility]) [address] [facility], [place], [address], 01/24/2025 20:14:03 01/07/20 25 01/24/2025 INHER ITEST (R)CF / SMA PANEL methods/limi tations Commen t Next- gener ation Seque ncing (NGS) : Genom ic regio ns of inter est are selec yung using the [employer] BiosR-B Acquisition ience (R) hybri dizat ion captu re metho d and seque nced via the Illum callie(R ) NGS platf orm. Seque ncing reads are align ed to the human genom e refer ence GRCh3 7/hg1 9 build . Regio ns of inter est inclu de codin g exons , intro n/exo n junct ions (typi lidia +/- 20 nucle otide s) and addit ional genom ic regio ns with known signi fican t patho genic varia nts. Jay tical sensi tivit y is estim ated to be >99% for singl e nucle otide varia nts and small inser tions /scott tions . Varia nt detec tion is perfo rmed by [employer] Genom ics and in-ho use algor ithms . Singl e exon delet ions or dupli catio ns can be detec yung in the CFTR gene with estim ated overa ll jay tical sensi tivit y >99%. Preci se break point s are not repor yung. Singl e-exo n delet ions or dupli catio ns are not detec yung in some cases due to CNV size limit ation s, or due to isola yung data quali ty varia tion or intri nsic seque nce prope rties . Confi rmato ry testi ng by ortho gonal techn ologi es may inclu de Sange r seque ncing , or MLPA jay sis. Repor yung varia nts: Patho genic and likel y patho genic varia nts are repor yung for all tests . Varia nts of uncer tain signi fican ce are not repor yung for any Inher itest sanjuana er panel or for Cysti c Fibro sis Full- gene Sanjuana er Scree n. Varia nts of uncer tain signi fican ce are repor yung with all GeneS eq PLUS test codes unles s VUS opt out is selec yung. Benig n and likel y benig n varia nts are not repor yung. Varia nts are speci fied using the numbe ring and nomen clatu re recom carlos d by the Human Genom e Varia tion Socie ty (HGVS , http: //www .hgvs .org/ ). Varia nt class ifica tion and confi rmati on are consi stent with ACMG stand ards and guide lines (Rich ards, PMID: [id number]; Reny, PMID: 40811 774). Detai led varia nt class ifica tion infor matio n and varia nt reeva luati on are avail able upon reque st. Spina l muscu lar atrop hy: The copy numbe r of SMN1 exon 7 is asses sed relat karen to inter nal stand tien refer ence genes by quant itati ve polym erase chain react ion (qPCR ). A mathe matic al algor ithm calcu lates 0, 1, 2 and 3 copie s with stati stica l confi dence . In speci mens and speci mens with 0 or 1 copie s, the prime r and probe carlton ng sites are seque nced to rule out varia nts that could inter fere with copy numbe r jay sis. SMN2 copy numbe r is asses sed by digit al dropl et PCR jay sis relat karen to an inter nal stand tien refer ence gene in sampl es with no copie s of SMN1. For sanjuana er scree truong, when two copie s of SMN1 are detec uyng, allel ic discr imina tion qPCR kristopherge pedro c.*3+ 80T>G in SMN1 is perfo rmed. Limit ation s: Techn ologi es used do not detec t germl ine mosai cism and do not rule out the prese nce of large chrom osoma l aberr ation s inclu ding rearr angem ents and gene fusio ns, or varia nts in regio ns or genes not inclu ded in this test, or possi ble inter /intr ageni c inter actio ns betwe en varia nts, or repea t expan sions . Varia nt class ifica tion and/o r inter preta tion may ovalle e over time if more infor matio n becom es avail able. False posit karen or false negat karen resul ts may occur for reaso ns that inclu de: rare tenisha ic varia nts, sex chrom osome abnor malit ies, pseud ogene inter feren ce, blood trans fusio ns, bone marro w trans plant ation , somat ic or tissu e-spe cific mosai cism, misla beled sampl es, or trae eous repre senta tion of famil y relat ionsh ips. This test was billel sana and its perfo rmanc e arthur cteri stics deter mined by [employer]. It has not been clear ed or appro los by the Food and Drug Admin istra tion. [employer] Tenisha ic [employer] is a subsi diary of Labor atory Corpo ratio n of Tendr ngs, using the brand [employer]. Inher itest (R) and GeneS eq(R) are ania tered servi ce ballard of Labor atory Corpo ratio n of Tendr ngs. Not Available [facility] ([facility]) [address] [facility], [place], [address], 01/24/2025 20:14:03 01/07/20 25 01/24/2025 INHER ITEST (R)CF / SMA PANEL references Commen t Rashard AR, Kt i M, Lena an S et al. Scree truong for autos omal reces sive and X-enrique ked condi tions durin g pregn nicola and preco ncept ion: a pract ice resou rce of the [employer] Colle ge of Medic al Tenisha ics and Genom ics ([facility] ). Tenisha Med 23, 4720 (2020 ). PMID: [id number] Not Available [facility] ([facility]) [address] [facility], [place], [address], 01/24/2025 20:14:03 01/07/20 25 01/24/2025 INHER ITEST (R)CF / SMA PANEL disorders tested Commen t Cysti c fibro sis (1 gene) . Autos omal reces sive: CFTR Spina l muscu lar atrop hy (1 gene) . Autos omal reces sive: SMN1 Not Available [facility] ([facility]) [address] [facility], [place], [address], 01/24/2025 20:14:03 01/07/20 25 01/24/2025 INHER ITEST (R)CF / SMA PANEL director review/relea se Commen t [place] nent Type Perfo rmed At Labor atory Direc tor Techn ical Esote keith Tenisha ic Rakel Fiore, PhD, compo nent, Solavei atori [employer], [employer], [employer] proce ssing [address] , [facility] [place], [address] Techn ical Esote keith Tenisha ic Rakel Fiore, PhD, compo nent, [employer] at[employer] WE[employer] at work, [employer] jay sis [address], [place], [address] Profe ssion al Esote keith Tenisha ic Rakel Fiore, PhD, compo nent [employer], [employer] [address], [place], [address] Elect irvin allen relea sed by Michelle Mccord, PhD, [employer] Not Available [facility] ([facility]) [address] [facility], [place], [address], 01/24/2025 20:14:03 01/07/20 25 01/24/2025 INHER ITEST (R)CF / SMA PANEL pdf . Not Available [facility] ([facility]) [address] [facility], [place], [address], 01/24/2025 20:14:03 01/07/20 25 01/07/2025 HEMOG LOBIN A1C hemoglobin A1C 5.2 % 4.8-5. 6 normal Predi abete s: 5.7 - 6.4 Diabe kelsey: >6.4 Glyce vick contr ol for adult s with diabe kelsey: <7.0 Not Available [facility] ([facility]) [address] [facility], [place], [address], 01/24/2025 20:14:04 01/07/20 25 01/07/2025 VARIC IVAN- ZOSTE R V AB, IGG varicella zoster IgG Reacti ve non reacti ve Ple ase note refer ence inter patel ovalle e A React karen resul t is consi dered evide nce of immun ity to VZV. React karen indic ates that VZV IgG was detec yung consi stent with previ ous infec tion and/o r vacci natio n. A Non React karen resul t indic ates that VZV IgG was not detec yung sugge sting that immun ity has not been acqui red. Not Available [facility] ([facility]) [address] [facility], [place], [address], 01/24/2025 20:14:05 01/07/20 25 01/06/2025 pregn nicola test, urine HCG positi ve Not Available [employer] [address] [place] [address] , [place], [address], 01/06/2025 08:42:29 01/14/20 US, obste tric, 1st trime ster No observ ation record ed. [email or web address] [facility] [employer] [address] [place] [address] , [place], [address], 01/13/2025 13:20:36 01/17/20 25 01/13/2025 US, obste tric, 1st trime ster No observ ation record ed. BARCODE [facility] [employer] [address] [place] [address] , [place], [address], 01/16/2025 11:51:06 01/25/20 25 01/27/2025 US, obste tric, 1st trime ster No observ ation record ed. [facility] [employer] [address] [place] [address] , [place], [address], 01/28/2025 14:21:05 02/11/20 25 01/27/2025 US, obste tric, 1st trime ster No observ ation record ed. BARCODE [facility] [employer] [address] [place] [address] , [place], [address], 02/10/2025 13:40:46 02/11/20 25 01/27/2025 US, obste tric, 1st trime ster No observ ation record ed. BARCODE [facility] [employer] [address] [place], [address], 02/10/2025 13:52:37 Result Notes None recorded. Problems Name Problem SNOMED Code Status Onset Date Resolution Date Notes Provider Name and Address Organization Details Recorded Time Asthma 333328935 Active 2017 Megansusannah Hallman, [employer] [address], [place], [address] , [place] - [facility] 13:21:29 Dysmenor kalia 568707020 Completed 201701/06/2025 Megan Hallman, [employer] [address], [place], [address] , [place] [facility] 13:21:59 Intermit tent asthma 471798218 Completed 201901/06/2025 Megan Hallman, [employer] [address], [place], [address] , [place] [facility] 13:21:57 Exposure to SARS-CoV -2 Completed 201909/17/2022 Suad Stevens, [employer] [address], [place], [address] , [place] [facility] 12:21:20 Chest pain 84362983 Completed 202101/06/2025 Megan Hallman [employer] [address], [place], [address] , [place] [facility] 5 13:22:03 COVID-19 244731521 Completed 202101/06/2025 Megan Hallman APRN [address], [place], [address] , [place] [facility] 5 13:22:01 Irregula r periods 65244153 Completed 202101/06/2025 Megan Hallman [employer] [address], [place], [address] , [place] [facility] 13:21:55 Overweig ht in klebero d 251518931 Completed 202101/06/2025 Megansusannah Hallman, [place] [address], [place], [address] , [place] [facility] 13:21:42 Liver function tests outside referenc e range 854757644 Completed 202101/06/2025 Megan Hallman, [employer] [address], [place], [address] , [place] [facility] 13:21:53 Pain of breast 50089575 Completed 202201/06/2025 Megansusannah Hallman APRN [address], [place], [address] , [place] [facility] 13:21:44 Unintent ional weight gain 24996544027 4104 Completed 202201/06/2025 Megansusannah Hallman, [place] [address], [place], [address] , [place] [facility] 13:21:46 Lump in upper outer quadrant of right breast 48311839440 4108 Completed 202201/06/2025 Megansusannah Hallman, [place] [address], [place], [address] , [place] [facility] 13:21:50 Pregnanc y 07820944 Completed 202401/19/2025 Ruperto Clarke, RN [address], [place], [address] , [place] [facility] 15:44:28 Body mass index 25-29 - overweig ht 991061706 Completed 2024 BMI: 27 starting wgt: 154 HgbA1c: Megansusannah Hallman APRN [address], [place], [address] , [place] [facility] 13:31:11 Body mass index 25-29 - overweig ht 760903299 Active 2024 BMI: 27 starting wgt: 154 HgbA1c: Megan Hallman, [employer] [address], [place], [address] , [place] [facility] 13:31:11 Overweig ht 573789381 Active 2024 Megan Hallman, [employer] [address], [place], [address] , [place] [facility] 13:24:47 Antenata l screenin g Completed 2024 Mat21- desires AFP- desires CF/SMA- drawn Megan Hallman, [employer] [address], [place], [address] , [place] [facility] 13:34:54 Contrace ptive counseli ng Completed 2024 none Megan Hallman, [employer] [address], [place], [address] , [place] - [facility] 13:30:39 Immuniza tion due 014526923 Completed 2024 Covid- declined Tdap- Flu- declined 01/06/25 Megan Hallman, [employer] [address], [place], [address] , [place] [facility] 13:30:53 Recreati onal drug user 186599183 Completed 2024 obhx UDS+ for THC [ ] rpt at 28wks Nissa Jules-Or paulo, DO [address], [place], [address] , [place] [facility] 11:42:19 Recreati onal drug user 725633184 Active 2024 obhx UDS+ for THC [ ] rpt at 28wks Megan Hallman, [employer] [address], [place], [address] , [place] [facility] 5 23:09:13 Gestatio n period, 7 weeks 43262406 Completed 202401/24/2025 Megan Hallman, [employer] [address], [place], [address] , [place] [facility] 5 23:09:05 Gestatio n period, 8 weeks 25757184 Completed 202401/24/2025 Megan Hallman, [employer] [address], [place], [address] , [place] [facility] 5 23:09:09 Finding of urine substanc e level 866864389 Active 2024 Megan Hallman, [employer] [address], [place], [address] , [place] [facility] 5 23:08:58 Vaginal bleeding 521224926 Active 2024 Megan Hallman, [employer] [address], [place], [address] , [place] [facility] 5 23:09:18 Acute urinary tract infectio n 925866784 Active 202401/06/25 GBS in urine Megan Hallman, [employer] [address], [place], [address] , [place] [facility] 5 23:09:38 Acute pharyngi tis 268746215 Active 2024 Joe, DO [address], [place], [address] , [place] [facility] 09:31:26 Problem Notes None recorded. Procedures Surgical History Date Name Laterality Status Provider Name and Address Organization Details Recorded Time 025 OB Ultrasound Summary completed Minnie Cardenas [place] - [facility] 01/27/2025 14:03:39 025 OB Ultrasound Summary cancelled Shruti Rodger [place] - [facility] 01/12/2025 15:52:27 025 OB [...] 16:09:08 006 Remove tonsils and adenoids completed [facility] Care Management [facility] [address], [place], [address], [place] - [facility] 09/12/2016 13:31:01 Imaging Results [...] Disconti nued on: 07/25/20 09 8:20AM;U ser: [email or web address];In dication : Nausea and Vomiting - (16.7870 [...] nued on: 03/07/20 10 11:05AM; User: noel;Alfreda alcala Completi on: 02/10/20 10;Indic ation: Acute Otitis Media - (8259 );Prin yung: 01/31/20 10 Not Available Not Available [...] Disconti nued on: 01/01/20 13 8:28AM;U ser: noel;Es t. Completi on: 09/10/20 12;Print ed: 08/31/20 12 Not Available Not Available Not Available ranitidin e 75 mg tablet take 1 tablet by oral route every 12 hours for 14 days 08/31 completed ranitidi ne HCl 75 mg oral tablet;R ecorded Status: Recorded on: 02/02/20 12 9:53AM;D iscontin ued Status: Disconti nued on: 08/31/20 12 4:53PM;U ser: [email or web address];Es t. Completi on: 02/16/20 12;Indic ation: Dyspepsi a - (5368 );Prin yung: 02/02/20 12 Not Available Not Available [...] dication : Bacteria l Conjunct ivitis - (3723 );Prin yung: 01/01/20 13 Not Available Not [...] height Body mass index (BMI) Body weight Pain severity - 0-10 verbal numeric rating [Score] - Reported Systolic And Diastolic Provider Name and Address Organization Details Last Updated DateTime 01/06/2025 160.02 cm 27.4 kg/m2 68003.1 g 0 120/76 mm[Hg] Cortney Woodard [facility] 13:13:19 Date Recorded Body height Body mass index (BMI) Body weight Pain severity - 0-10 verbal numeric rating [Score] - Reported Systolic And Diastolic Provider Name and Address Organization Details Last Updated DateTime 01/13/2025 160.02 cm 27.5 kg/m2 91643.82 g 9 120/76 mm[Hg] Ayde Li [facility] 11:54:32 Date Recorded Body height Body mass index (BMI) Body weight Pain severity - 0-10 verbal numeric rating [Score] - Reported Systolic And Diastolic Provider Name and Address Organization Details Last Updated DateTime 01/16/2025 160.02 cm 27.4 kg/m2 63735.66 g 0 128/82 mm[Hg] Nissa Munoz [facility] 11:38:56 Date Recorded Body height Pain severity - 0-10 verbal numeric rating [Score] - Reported Body mass index (BMI) Body weight Systolic And Diastolic Provider Name and Address Organization Details Last Updated DateTime 01/27/2025 160.02 cm 0 28.3 kg/m2 70157.78 g 122/80 mm[Hg] Nissa Hamlinmons [facility] 14:19:59 Date Recorded Body height Body mass index (BMI) Body weight Body temperature Heart rate Oxygen saturation Pain severity - 0-10 verbal numeric rating [Score] - Reported Systolic And Diastolic Provider Name and Address Organization Details Last Updated DateTime 160.02 cm 32.8 kg/m2 14534.5 9 g 98.5 [degF] 90 /min 99 % 4 114/78 mm[Hg] Nissa Reddy [place] - [facility] 09:23:01 Social History Question Answer Notes LastModified by Organizat ion Details LastModified Time Tobacco Smoking Status Never Smoker Nissa hernandez [place] - [facility] 05/28/2023 10:43:32 Do You Have An Advance Directive? No [email or web address] Information not available 03/17/2018 Animal Exposure? Yes Informat ion not available 10/17/2019 Are You Blind Or Do You Have Difficulty Seeing? No [email or web address] Information not available 03/17/2018 Is Blood Transfusion Acceptable In An Emergency? Yes [email or web address] Information not available 03/17/2018 What Is Your Level Of Caffeine Consumption? Occasional [email or web address] Information not available 09/12/2016 How Much Tobacco Do You Chew? None [email or web address] Information not available 09/12/2016 In The 14 Days Before Symptom Onset, Have You Had Close Contact With A Laboratory-confi rmed COVID-19 While That Case Was Ill? No [email or web address] Information not available 09/17/2022 In The 14 Days Before Symptom Onset, Have You Had Close Contact With A Person Who Is Under Investigation For COVID-19 While That Person Was Ill? No [email or web address] Information not available 09/17/2022 Have You Been To An Area Known To Be High Risk For COVID-19? No [email or web address] Information not available 09/17/2022 Are You Deaf Or Do You Have Serious Difficulty Hearing? No [email or web address] Information not available 03/17/2018 What Type Of Diet Are You Following? REGULAR [email or web address] Information not available 09/12/2016 Which Illicit Or Recreational Drugs Have You Used? THC Stopped When She Found Out She Was [email or web address] Information not available 01/13/2025 Have You Processed Blood Or Body Fluids From An Ebola Virus Disease Patient Without Appropriate PPE? No [email or web address] Information not available 09/17/2022 Do You Reside In Or Have You Traveled To An Area Where Ebola Virus Transmission Is Active? No [email or web address] Information not available 09/17/2022 What Is The Highest Grade Or Level Of School You Have Completed Or The Highest Degree You Have Received? [id number] [email or web address] Information not available 01/06/2025 How Many Days Of Moderate To Strenuous Exercise, Like A Brisk Walk, Did You Do In The Last 7 Days? 0 [email or web address] Information not available 03/17/2018 On Those Days That You Engage In Moderate To Strenuous Exercise, How Many Minutes, On Average, Do You Exercise? 0 [email or web address] Information not available 03/17/2018 Have There Been Any Changes To Your Family Or Social Situation? No [email or web address] Information not available 09/17/2022 How Hard Is It For You To Pay For The Very Basics Like Food, Housing, Medical Care, And Heating? [id number] [email or web address] Information not available 03/17/2018 What Is The Fluoride Status Of Your Home? Non-fluoridat ed Information not available 09/17/2022 Are There Any Guns Present In Your Home? No Information not available 10/17/2019 Have You Recently Or Are You Planning To Travel To An Area With Zika Virus? No Information not available 09/17/2022 Do You Use Insect Repellent Routinely? Yes Information not available 10/17/2019 Live Alone Or With Others? With Others Information not available 03/17/2018 Do You Have A Medical Power Of Pulley Worker? No [email or web address] Information not available 09/17/2022 What Was The Date Of Your Most Recent Tobacco Screening? 01/06/2025 Information not available 01/06/2025 How Many Children Do You Have? 0 [email or web address] Information not available 03/17/2018 Performs Monthly Self-breast Exam? Yes [email or web address] Information not available 03/17/2018 Do You Use Protection During Sex? Always [email or web address] Information not available 03/17/2018 What Is Your Relationship Status? Single [email or web address] Information not available 03/17/2018 Do You Use Your Seat Belt Or Car Seat Routinely? Yes Information not available 09/12/2016 Seat Belts Used Routinely Yes [email or web address] Information not available 03/17/2018 Are You Sexually Active? Yes Information not available 03/17/2018 Do You Have Smoke And Carbon Monoxide Detectors In Your Home? Yes [email or web address] Information not available 09/12/2016 Are You Passively Exposed To Smoke? No [email or web address] Information not available 09/17/2022 How Much Tobacco Do You Smoke? No [email or web address] Information not available 05/28/2023 General Stress Level Low [email or web address] Information not available 03/17/2018 Do You Use Sunscreen Routinely? Yes [email or web address] Information not available 09/12/2016 Has Tobacco Cessation Counseling Been Provided? Yes Information not available 01/06/2025 On What Date Was Tobacco Cessation Counseling Provided? 01/06/2025 [email or web address] Answered No To The Tobacco Cessation Counseling Provided Question On 03/17/2018. Information not available 01/06/2025 How Many Years Have You Smoked Tobacco? 0 [email or web address] Information not available 09/12/2016 Have You Used IV Drugs? No Information not available 01/06/2025 Do You Have Difficulty Walking Or Climbing Stairs? No Information not available 03/17/2018 Year In School 9 [email or web address] Informatio n not available 03/17/2018 What Contraceptive Method Was Reported At Start Of This Visit? None [email or web address] Information not available 05/28/2023 What Contraceptive Method Was Reported At End Of This Visit? None Information not available 01/06/2025 Do You Want To Talk About Contraception Or Prevention During Your Visit Today? No - This Question Does Not Apply To Me/I Prefer Not To Answer [email or web address] Information not available 01/06/2025 How Many Years Have You Used E-cigarettes Or Vape? 4 Information not available 01/06/2025 Do You Have Any Future Plans To Get ? Yes, I Want To Become [email or web address] Information not available 05/28/2023 What Is Your Reason For Having No Contraceptive Method At Start Of This Visit? Other [email or web address] Information not available 01/06/2025 What Is Your Reason For Having No Contraceptive Method At End Of This Visit? Other [email or web address] Information not available 01/06/2025 Sex: Female Functional Status Question Answer Note LastModified by Organizat ion Details LastModified Time Do you or have you ever used smokeless tobacco? Never used smokeless tobacco Information not available 01/06/2025 Are you currently employed? Yes [email or web address] Information not available 01/06/2025 Do you have transportation difficulties? No Information not available 01/06/2025 Are you able to care for yourself independently? Yes [email or web address] Information not available 09/17/2022 Do you have difficulty dressing, bathing, grooming, or toileting? No [email or web address] Information not available 03/17/2018 Do you or have you ever used e-cigarettes or vape? Former user of electronic cigarettes Information not available 01/13/2025 What is your exercise level? Occasional [email or web address] Information not available 09/12/2016 Do you use any illicit or recreational drugs? Yes Information not available 01/06/2025 Do you or have you ever used any other forms of tobacco or nicotine? Yes [email or web address] Information not available 09/17/2022 What is your level of alcohol consumption? None [email or web address] Information not available 09/12/2016 What is your status? [email or web address] Information no t available 01/06/2025 Are you able to walk independently without assistance or assistive devices? YESWOREST [email or web address] Information not available 03/17/2018 Do you have difficulty doing errands alone? No Information not available 03/17/2018 What is your occupation? [employer] [email or web address] Information not available 01/06/2025 Mental Status Question Answer Note LastModified by Organizat ion Details LastModified Time Do you feel stressed (tense, restless, nervous, or anxious, or unable to sleep at night)? [id number] [email or web address] Information not available 03/17/2018 Do you have difficulty concentrating, remembering or making decisions? No [email or web address] Information no t available 03/17/2018 Family History Relationship Description Onset Age of this Age Resolved Age Notes LastModified by Organization Details LastModified Time Maternal Grandmother Heart disease [email or web address] Not available 09/12 13:14:22 Maternal Grandmother Neoplasm of brain [email or web address] Not available 2024 12:51:36 Mother Hyperlipidem ia [email or web address] Not available 2024 12:51:36 Mother Essential hypertension [email or web address] Not available 01/2025 12:51:36 Mother Diabetes mellitus [email or web address] Not available 2017 15:46:12 Maternal Grandfather Myocardial infarction [email or web address] Not available 01/06 12:51:36 Maternal Aunt Female infertility [email or web address] Not available 01/2025 12:51:36 Maternal Aunt Endometriosi s (clinical) [email or web address] Not available 01/2025 12:51:36 Medical History Condition Response Pancreatitis N Coronary Artery Disease N Other N Gout N Atrial Fibrillation N congenital heart disease N Blood Diseases N Kidney Stones N Hyperthyroidism N Blood Transfusion N Rheumatoid [...] colitis N Cerebrovascular Disease N Depression N Guillain-[place] N Sleep Apnea N Aneurysm N Bronchitis [...] or pediatric 06/07/20 02 completed Not Available [facility] 07/13/2016 13:14:13 Hep B, adolescent or pediatric 07/07/20 02 completed Not Available [facility] 07/13/2016 13:14:13 Hep B, adolescent or pediatric 05/10/20 03 completed Not Available [facility] 07/13/2016 13:14:13 DTaP 07/07/20 02 completed Not Available [facility] 07/13/2016 13:14:13 DTaP 09/12/20 02 completed Not Available [facility] 07/13/2016 13:14:13 DTaP 11/10/19 03 completed Not Available [facility] 07/13/2016 13:14:13 DTaP 08/11/20 03 completed Not Available [facility] 07/13/2016 13:14:13 DTaP 05/11/20 06 completed Not Available [facility] 07/13/2016 13:14:14 Hib (PRP-OMP) 07/07/20 02 completed TRUE [facility] 12/28/2024 08:48:32 Hib (PRP-OMP) 09/12/20 02 completed TRUE [facility] 12/28/2024 08:48:32 Hib (PRP-OMP) 05/10/20 03 completed Nissa Sher null, [place] - [facility] 12/28/2024 08:48:32 IPV 07/07/20 02 completed Not Available [facility] 07/13/2016 13:14:14 IPV 09/12/20 02 completed Not Available [facility] 07/13/2016 13:14:14 IPV 05/10/20 03 completed Not Available [facility] 07/13/2016 13:14:24 IPV 05/11/20 06 completed Not Available [facility] 07/13/2016 13:14:24 MMR 08/11/20 03 completed Not Available [facility] 07/13/2016 13:14:24 MMR 05/11/20 06 completed Not Available [facility] 07/13/2016 13:14:24 meningococcal MCV4P 03/31/20 14 completed Not Available [facility] 11/05/2019 02:21:32 HPV, unspecified formulation 03/31/20 14 completed Nissa Sher null, [place] - [facility] 12/28/2024 08:48:32 HPV, unspecified formulation 05/12/20 14 completed Nissa Sher null, [place] - [facility] 12/28/2024 08:48:32 HPV, unspecified formulation 10/02/20 14 completed Nissa Nikky null, [place] - [facility] 12/28/2024 08:48:32 Tdap 03/31/20 14 completed Not Available [facility] 11/05/2019 02:21:32 Influenza, split virus, quadrivalent, preservative 09/17/20 22 cancelled patient objection Suad Stevens, [employer]IST[employer] [address], [place], [address], [place] [facility] 09/17/2022 15:04:47 Hep A, ped/adol, 2 dose 12/08/19 18 completed Not Available [facility] 10/22/2019 03:54:54 meningococcal MCV4P 05/07/20 18 completed Not Available [facility] 10/22/2019 03:55:08 Hep A, ped/adol, 2 dose 07/20/20 18 completed Not Available [facility] 10/22/2019 03:55:14 Influenza, split virus, quadrivalent, preservative 10/19/19 20 completed Not Available [facility] 10/22/2019 03:56:18 Past Encounters Encounter ID Performer Location Encounter Start Date Encounter Closed Date Diagnosis/Indication Diagnosis SNOMED-CT Code Diagnosis ICD10 Code Diagnosis IMO Codes Diagnosis Note [id number] [facility] [address] [place] [address] [address] 12/18/2008 00:00:00 [id number] [facility] [address] [place] [address] [address] 05/25/2009 00:00:00 [id number] [facility] [address] [place] [address] [address] 05/25/2009 00:00:00 [id number] [facility] [address] [place] [address] [address] 07/25/2009 00:00:00 [id number] [facility] [address] [place] [address] 07/25/2009 00:00:00 [id number] [facility] [address] [place] [address] 01/30/2010 00:00:00 [id number] [facility] [address] [place] [address] 03/07/2010 00:00:00 [id number] [facility] [address] [place] [address] 10/01/2011 00:00:00 [id number] [facility] [address] [place] [address] 10/01/2011 00:00:00 [id number] [facility] [address] [place] [address] 10/22/2011 00:00:00 [id number] [facility] [address] [place] [address] 02/02/2012 00:00:00 [id number] Renita Laird MD [address] [place] [address] 09/15/2016 15:57:45 09/15/2016 16:28:54 Stomach cramps 87191593 R10.9 [id number] Pavan Munoz MD [address] [place] [id number] 12/05/2016 09:32:32 12/05/2016 10:10:29 History and physical examination, sports participation 362868333 Z02.5 Cleared for participat ion w/o restrictio n [id number] Rachel Islas APRN [address] [place] [address] 07/02/2017 15:08:37 07/02/2017 15:37:14 Low back pain 975251569 M54.5 [id number] Renita Laird MD [address] [place] [id number] 07/06/2017 16:36:53 07/06/2017 17:19:00 Infection of skin 450111286 L08.9 [id number] Renita Laird MD [address] [place] [id number] 10/14/2017 15:52:10 10/14/2017 16:43:33 Viral bronchitis 57061358 J20.8 [id number] Renita Laird MD [address] [place] [address] 12/07/2017 15:59:08 12/07/2017 16:38:21 Active or passive immunization 641404101 Z23 [id number] Renita Laird MD [address] [place] [id number] 12/30/2017 16:17:38 12/30/2017 16:57:15 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 Gastroesop hageal reflux disease without esophagitis 620809363 K21.9 [id number] ORLANDO Mendoza [employer] [address] [place] [address] [place] [id number] 03/17/2018 15:32:18 03/17/2018 16:40:04 Initiation of depot contraception done 9544420304 65775 Z30.013 Screening for Chlamydia trachomatis 610186113 Z11.8 Dysmenorrhea 458048389 N 94.6 Depression screening 171 302592 Z13.89 Normal bod y mass index 86206624 Z68.52 [id number] Renita Laird MD [address] [place] [id number] 05/07/2018 15:37:13 05/07/2018 15:56:49 Active or passive immunization 805557777 Z23 [id number] Allison Butterfield APRN [place] [employer] [address] [place] [address] [place] [address] 06/08/2018 14:37:11 06/08/2018 14:56:14 Initiation of depot contraception done 4911183795 90900 Z30.013 Dysmenorrhea 602706769 N 94.6 [id number] Megan Cornell [address] [place] [id number] 07/20/2018 15:34:37 07/20/2018 17:53:13 Active or passive immunization 275752282 Z23 Pain in left knee 261983 0314 25451 M25.357 [id number] Allison Butterfield [employer] [place] [employer] [address] [place] [address] [place] [id number] 08/30/2018 14:38:01 08/30/2018 14:50:46 Initiation of depot contraception done 1813301519 27297 Z30.013 Dysmenorrhea 353782054 N 94.6 Surveillan ce of depot contraception done 0748351990 9104 Z30.42 [id number] Rachel Islas [address] [place] [id number] 09/01/2018 15:30:00 09/01/2018 16:33:21 Pain in throat 318231231 R07.0 Acute pharyngitis 946927 003 J02.9 [id number] Renita Laird MD [address] [place] [address] 10/25/2018 16:37:38 10/25/2018 17:19:04 Asthma 168898855 J45.909 Pain of le ft hip joint 2141808190 33006 M25.692 [id number] OR[place]O Mendoza [employer] [address] [place] [address] [place] [address] 11/22/2018 13:44:31 11/22/2018 14:06:59 Surveillance of depot contraception done 9895396530 9104 Z30.42 [id number] [place] Oesi [employer] [address] [place] [address] [place] [address] 02/17/2019 14:31:59 02/17/2019 14:58:31 Surveillance of depot contraception done 6898331643 91 Z30.42 [id number] Fadumo Mosley MD [place] [employer] [address] [place] [address] [place] [id number] 05/13/2019 08:52:52 05/13/2019 09:34:47 Surveillance of depot contraception done 6493401970 9104 Z30.42 Dysmenorrhea 763059757 N 94.6 [id number] [place] Osei SH[employer] [address] [place] [address] [place] [address] 08/05/2019 10:51:42 08/05/2019 11:27:20 Uses depot contraception 942313502 Z30.42 [id number] Renita Laird MD [address] [place] [id number] 08/26/2019 13:39:42 08/26/2019 14:31:35 Viral gastroenteritis 899331736 A08.4 Nausea and vomiting 1692 1999 R11.2 [id number] Kaitlin Lopez MD [address] [place] [address] 10/17/2019 15:50:47 10/17/2019 18:23:45 Right upper quadrant pain 291627925 R10.11 [id number] Renita Laird MD [address] [place] [address] 10/19/2019 17:48:46 10/19/2019 18:40:06 Administration of influenza vaccine 09613576 Z23 Normal bod y mass index 28291009 Z68.52 85%ile [id number] Perez Delarosa MD [address] [place] [id number] 05/03/2020 13:27:31 05/03/2020 16:47:01 Sore throat 416396953 J02.9 Patient has symptoms suggestive of acute pharyngiti s, viral illness. Rapid strep Rapid flu are negative. Take Tylenol as prescribed . Maintain an adequate hydration. Advised to wash hands diligently and also practice respirator y hygiene eg covering cough. Stressed on social distancing . Self isolate until asymptomat ic/COVID-1 9 negative. I recommende d to seek an immediate medical attention i.e. call 911 and go to hospital emergency department (ER) right away should gets worse or develops difficulty breathing, shortness of air, chest pain, or any other symptoms. Follow up with us in about one week or so Numbness of hand 7298407 04 R20.0 Intermitte nt numbness affecting digits of hands. Will check labs and nerve conduction studies. See us back or go to Er right away should gets worse or develops any new symptoms or complaints . Follow up with us in 1-2 weeks to discuss test results and further management . Venereal d isease screening 464525209 Z11.3 Hyperlipid emia screening 520132091 Z13.220 Endocrine/ metabolic screening 473196787 Z13.380 [id number] Renita Laird MD [address] [place] [address] 08/01/2020 17:05:38 08/01/2020 18:21:42 Intermittent asthma 191208894 J45.20 [id number] Perez Delarosa MD [address] [place] [address] 08/23/2020 09:47:49 08/23/2020 12:18:34 Exposure to SARS-CoV-2 508178791 Z20.828 Pt had an exposure to a case of COVID-19. Pt is asymptomat ic and feeling well. Her rapid COVID-19 is negative. Avoid NSAIDs (Advil, Aleve, Motrin, Naproxen, Ibuprofen etc). Will do sars-cov-2 , ALANIS. Maintain an adequate hydration. I advised to wash hands diligently and also practice respirator y hygiene eg covering cough. Stressed on social distancing . Self quarantine until 08.31.20. I also recommende d to seek an immediate medical attention i.e. call us/go to the ER right away should develop symptoms or complaints . I also recommende d to call 911 and go to the hospital emergency department (ER) right away should develop any difficulty breathing, shortness of air, chest pain, confusion, change in behavior, difficulty in rousing, low blood pressure, bluish discolorat ion of skin, failure of kidneys to produce urine, falls or other symptoms or complaints . [id number] DO Isidra [place] SHOE DRESSER [address] [place] [address] [place] [id number] 10/19/2020 13:48:46 10/19/2020 15:09:33 Abnormal uterine bleeding 5883557207 9100 N93.9 Schedule Contracept ion care management 691583591 Z30.9 Polycystic ovary syndrome 587940837 E28.2 [id number] Ovi Tucker MD [place] [employer] [address] [place] [address] [place] [address] 10/30/2020 15:28:07 10/30/2020 16:37:12 Abnormal uterine bleeding 8850332484 9100 N93.9 [id number] Fatou Bruner DO [place] [employer] [address] [place] [address] [place] [address] 04/01/2021 14:56:36 04/01/2021 16:23:14 Irregular periods 50421999 N92.6 Dysmenorrhea 520436125 N 94.6 [id number] Brent Tan PA-C [address] [place] [address] 09/04/2022 08:27:38 09/04/2022 10:46:10 Influenza-like symptoms 571583421 R68.89 Chest pain 58524167 R07. 9 recommende d evaluation at ER. pt declines transport by ambulance. voices understand ing and willingnes s to transport self COVID-19 989680478 U07.1 Disscussed supportive care with patient. Advised to drink plenty of fluids and fluids containing electrolyt es. Try to get plenty of rest. Can take OTC pain medication such as tylenol or ibuprofen as needed to relieve fever, headache, or body aches. If patient should get worse call clinic or go to emergency room. Discussed expected course and cautioned signs and sxs to seek further treatment. Discussed quarantine period. [id number] OR[place]O Osei SH[employer] [address] [place] [address] [place] [address] 09/17/2022 11:21:42 09/17/2022 12:27:16 Routine gynecologic examination done 2948039872 9101 Z01.419 Depression screening 171 228667 Z13.89 Hypertensi on screening 060257085 Z13.6 Diet education 77237714 Z71.3 Encourage healthy eating/dec reased fats, sugars, fried foods Counseling 486400903 Z71 .82 Encouraged regular exercise 30-40min/d ay 4-5 days/wk Contracept ion care management 303163424 Z30.9 Examinatio n of blood pressure 676272452 Z01.30 Vaccine de clined by patient 2610782161 02 Z28.21 Pt declined flu vaccine today. Venereal d isease screening 910128659 Z11.3 Irregular periods 245216 07 N92.6 Liver func tion tests outside reference range 178754605 R94.5 Diabetes m ellitus screening 787241846 Z13.1 Overweight in childhood 829634842 Z68.53 Dysmenorrhea 198319288 N 94.6 [id number] [place] Osei SH[employer] [address] [place] [address] [place] [id number] 12/10/2022 13:04:23 12/10/2022 13:44:43 Contraception care management 513503447 Z30.9 Pain of breast 75777404 N64.4 [id number] [place] Osei SH[employer] [address] [place] [address] [place] [address] 05/28/2023 10:30:44 05/28/2023 11:28:48 Amenorrhea 15611441 N91.2 Unintentio nal weight gain 5161283888 96051 R63.5 Lump in up per outer quadrant of right breast 9334789328 46151 N63.11 Body mass index 30+ - obesity 232333761 Z68.33 Obesity 927988562 E66.9 [id number] [place] Law SHOE DR[employer]ER [address] [facility] [place] [address] 01/06/2025 12:46:17 01/06/2025 13:50:24 Urine test positive 874232986 Z32.01 First trim kevin 05472343 Z34.01 20637736 Body mass index 25-29 - overweight 493828121 E66.3 78096632 Overweight 892220732 E66 .3 Gestation period, 7 weeks 35360179 Z3A.01 36416282 screening 2437 64057 Z36.0 [id number] NISSA BELL DO [place] [employer] [address] [facility] [place] [address] 01/13/2025 11:36:52 01/13/2025 12:49:41 First trimester 69285993 Z34.01 95626334 Body mass index 25-29 - overweight 182098612 E66.3 76402296 Overweight 285323564 E66 .3 screening 2437 62084 Z36.0 Gestation period, 8 weeks 93946771 Z3A.08 4962603 Finding of urine substance level 420453008 R82.5 4106344 THC+ please discuss at today's visit per Megan Hallman APRN //todd// 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 Per patient, it seems like she was passing tissue as well and yolk sac was noted in lower uterine segment.Aelc antoinette would like expectant management since she is already passing tissue. Her bleeding is not excessive and she has good support at home.Follo w-up on Thursday or Thursday for reevaluati on. Trending beta hCGs [id number] MD Dawit Schuler SHOE DR[employer]ER [address] [place] [address] [place] [address] 01/16/2025 11:25:30 01/16/2025 11:57:56 Miscarriage 50136520 O03.9 58329 [id number] Fadumo Mosley MD [place] [employer] [address] [place] [address] [place] [address] 01/27/2025 13:18:26 01/27/2025 14:39:34 Miscarriage 34632405 O03.9 15867 [id number] Adam Diaz DO [address] [place] [address] 06/30/2025 09:10:48 06/30/2025 10:08:24 Acute pharyngitis 770829830 J02.9 591083547 25 yo F (21 week ), presenting for acute pharyngiti s symptoms. Strep/flu/ COVID negative, no evidence of bacterial infection at this time, will provide decadron 4mg for symptoms, follow up as needed. Health Concerns Section Related Observation LastModified by Organization Detai ls LastModified Time None Recorded Concern Status LastModified by Organization Details LastModified Time None Recorded Advance Directives Directive N: Payers Insurance Date Sequence Insurance Name Policy Number Policy Estrella Covered Member ID Estrella Member ID Guarantor Name 06/30/2025 1 [employer] [facility] (MEDICAID HMO) Marianne Cole [id number] Bri Cole 01/06/2025 1 *SELF PAY* Ailyn Cole 07/28/2025 1 [employer] [facility] (MEDICAID HMO) Marianne Cole [id number] Bri Cole 07/28/2025 [place] [facility] [place] [place] (MEDICAID) Marianne Cole [id number] Bri Cole 11/29/2016 1 UNSPECIFIED REMIT PAYOR Bri Cole Notes Date Note Type Note Provider Name and Address Organization Details Recorded Time 01/06/2025 text/html Patient is a 24 year old who is self referred for confirmation of .A urine test was positive. This was performed at home on 12/29/2024. She did not have prior test(s) done that were negative.Her LMP was 11/16/2024. She is sure of her last menstrual period. Since her LMP she claims she has been with any significant complaints. If she has complaints, she reports, nausea. She denies vaginal bleeding.By her LMP, her initial EDC is 08/23/2025. This gives an EGA today of 72. This is her first .Since her LMP, she reports use of any substances such as tobacco, THC. She claims her weight has not changed.Total time w/pt reviewing hx, updating chart, documentin minutes Megan Hallman, LOGISTICS/SHIPPER [address], [place], [address], [facility] 01/06/2025 13:41:59 01/13/2025 text/html see OB Worksheet Nissa Rodriguez , [address], [place], [address], [facility] 01/13/2025 13:22:59 01/16/2025 text/html ROS as noted in the HPI Aubrie reports that after her last visit, she passed tissue and blood. Bleeding was heavy but is now tapering off. No fevers, chills, abnormal discharge. Grieving. Unsure about timeline of future conception. Declines contraception for now. Fadumo Mosley MD [address], [place], [address], [facility] 01/16/2025 16:21:53 01/27/2025 text/html ROS as noted in the HPI Aubrie is here for f/u after miscarriage. Lochia stopped. No pain, vaginal discharge. No cramping. Doing well emotionally Fadumo Mosley MD [address], [place], [address], [facility] 01/28/2025 14:21:46 06/30/2025 text/html Upper Respirator y SymptomsReported by [...] weeks , is receiving OBGYN care at [facility] in [place], [place]. 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circ if boy/unsure Problem Name Start Date End Date Resolution Snomed Code Not e Contraceptive counseling 01/06/2025 [id number] none Immunization due 01/06/2025 885511199 Co vid- declinedTdap-Flu- declined 01/06/25 Body mass index 25-29 - overweight 01/06/2025 082458342 BMI: 27starting wgt: 272QdzX4d: Recreational drug user 01/13/2025 948679 002 obhx UDS+ for THC[ ] rpt at 28wks screening 01/06/2025 626826482 Mat21- desiresAFP- desiresCF/SMA- drawn Babar Calculation Initial Babar Date Initial Exam Date Initial Exam Provider Initial Ultrasound Date Last Menstrual Period Date Ultra Sound Weeks Gestation 08/23/2025 01/06/2025 11/16/2024 0 Eighteen To Twenty Week Babar Update Ultra Sound Date Fundal Height At Umbil Quickening Date Ultra Sound Latest Weeks Gestation Final Babar Confirmed By Final Babar Confirmed Date Final Babar Date Ultra Sound Latest Days Gestation 0 0 Pre- Flowsheet Flowsheet Date 01/06/2025 Mendoza Score Blood Edema Fundus Height Fundus Units Glucose Ketones Leukocytes Nitrite Labor Signs Protein Cervic Dilation Cervic Effacement Cervic Station neg none none negative none Negative none neg Type Weight in lbs Pre/Post Dialysis Refused With clothes [id number] BP Diastolic BP Location Tested BP Systolic BP Type 76 L arm 120 sitting Fetus Heart Rate Present Fetus Movement A No Comments Aubrie is here for obhx appt. FOB is w/her. She is certain of LMP. Unplanned . Denies vb or pain. She has not started PNV. Denies any health problems today or genetic problems in the family. Desires NIPT, CF/SMA drawn today. Proof of given today. Consents to all labs today. Admits to vape and THC but stopped w/+ upt.AD Flowsheet Date 01/13/2025 Mendoza Score Blood Edema Fundus Height Fundus Units Glucose Ketones Leukocytes Nitrite Labor Signs Protein Cervic Dilation Cervic Effacement Cervic Station trace none none small none Negative Bleeding neg Type Weight in lbs Pre/Post Dialysis Refused With clothes [id number] BP Diastolic BP Location Tested BP Systolic BP Type 76 L arm 120 sitting Fetus Heart Rate Present Fetus Movement A No Comments OB ER f/u - was in ER on 01/11 - still taking Abx. c/o abdominal cramping and blood in urine. //ak//On 01/11/2025, patient went to [facility] ER with complaint of vaginal bleeding and cramping. Speculum exam showed scant bleeding. Urinalysis revealed ketones and blood. She was given 1 dose of Macrobid and D/c'd home on keflex. Ucx neg. cannot find US documentation. Since then, pt notes dark red blood noted per vagina. Went to ER, pt was reassured. Pt still has small clots and cramping. This AM, pt noticed potential tissue passing- stringy gelatin tissue. 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 //JMO Flowsheet Date 01/16/2025 Mendoza Score Blood Edema Fundus Height Fundus Units Glucose Ketones Leukocytes Nitrite Labor Signs Protein Cervic Dilation Cervic Effacement Cervic Station Type Weight in lbs Pre/Post Dialysis Refused With clothes [id number] BP Diastolic BP Location Tested BP Systolic BP Type 82 L arm 128 sitting Fetus Heart Rate Present Fetus Movement Comments Here for miscarriage f/u aft er ED visit. Was told to RTC for hormone check. Still bleeding with clot passage that are slightly larger than pea size. Denies fever, discharge, malodorous odors. Stomach is feeling much better./BL// I have seen and examined the patient and agree with the plan of care. - Dr. Mosley Menstrual History Last Menstrual Date Menses Monthly On Bcp Conception Prior Menses Frequency Hcg Plus Date Menarche Onset Age 0211/16/2024 true false 28 5 11 Genetic Screening And Infection History Question Response Note Patient's Age Will Be 35 Yea rs Or Older At Estimated Date of Delivery false Thalassemia (Irish, Vincentian, Mediterranean, Or Background): MCV < 80 false Neural Tube Defect (Meningom yelocele, Spina Bifida, Or Anencephaly) false Congenital Heart Defect false Down Syndrome false Jae-Sachs (eg, Sikhism, Cajun, Burundian-Hanalei) f alse Ro Disease false Sickle Cell Disease Or Trait () false Hemophilia Or Other Blood Disorders false Muscular Dystrophy false Cystic Fibrosis false Mey's Chorea false Mental Retardation/Autism false If Yes, Was Person Tested For Fragile X? false Other Inherited Genetic Or Chromosomal Disorder false Maternal Metabolic Disorder (eg, Type 1 Diabetes , PKU) false Patient Or Baby's Father Had A Child With Defects Not Listed Above false Recurrent Loss, Or A Stillbirth false Medications (including Suppl ements, Vitamins, Herbs, OTC Drugs), Illicit/Recreational Drugs, Alcohol false none If Yes, Agent(s) And Strength/Dosage false Any Other Genetic History false Live With Someone With TB Or Exposed To TB false Patient Or Partner Has History Of Genital Herpes false pt denies 01/06/25 Rash Or Viral Illness Since Last Menstrual Perio d false History Of STD, Gonorrhea, Chlamydia, HPV, Syphi lis false pt denies 01/06/25 Other Infection History false History of HIV false History of Hepatitis false Prior GBS-infected child false Recent Travel Outside of Country false Plans and Education First Trimester Discussed Date Discussion Item Discussion Note Discuss ed By 01/06/2025 Desire for unplanned ad01/06/2025 Alcohol ad01/06/2025 Illicit/recreational drugs THC- stopped w /+upt 01/06/2025 Nutrition ad01/06/2025 Weight gain counseling -# [facility] 24 01/06/2025 Intimate Partner Violence ad uk01/06/2025 Unstable Housing 01/06/2025 Use of any medicatio ns (including supplements, vitamins, herbs, or OTC drugs) discussed 01/06/2025 Avoidance of saunas or hot tubs discussed 01/06/2025 Indications for ultrasonography 01/06/2025 Comminucation Barriers aduk01/06/2025 Anticipated course o f care 01/06/2025 Toxoplasmosis precau tions (cats/raw meat) 01/06/2025 Sexual activity 01/06/2025 Exercise 01/06/2025 Tobacco/smoking cess ation counseling (ask, advise, assess, assist, and arrange) vape- stopped w/+upt 01/06/2025 Barriers to Care 01/06/2025 Environmental/work hazards a [email or web address] 01/06/2025 Depression/Anxiety ( should be performed at least once during period) denies 01/06/2025 WIC/Hands Referral POP given 01/06/2025 Nutrition counseling ; special diet; dietary precautions (mercury, listeriosis) 01/06/2025 Dental Care / Refer to Dentist [facility]- been a few years 01/06/2025 Seat belt use 01/06/2025 Childbirth classes/h ospital facilities 01/06/2025 01/06/2025 Screening for aneuploidy loren ke24 Second Trimester Discussed Date Discussion Item Discussion Note Discuss ed By Third Trimester Discussed Date Discussion Item Discussion Note Discuss ed By Delivery Information Delivery Date Delivery Type Labor Anesthesia Weeks Gestation Incision Type Labor Labor Length Hrs Delivered By Post Complications Tubal Sterilization Discharge Date Comments 5 8.5 Discharge Information Feeding Method Contraceptive Method Maternal HG B and HCT Levels
[2025-08-28 10:46] LABS: Glucose,Fasting 89 mg/dl (74-100)
[2025-08-28 11:23] LABS: Glucose 1 Hour 185 mg/dL (74-100)
[2025-08-28 12:39] LABS: Glucose 2 Hour 163 mg/dL (74-100)
[2025-08-28 13:46] LABS: Glucose 3 Hour 121 mg/dL (74-100)
== END 2025-08-28 23:59 | disposition home or self-care (01) ==
LOC: LAB 09:38
PROVIDERS: PCP Obstetrics & Gynecology; Visit Provider Obstetrics & Gynecology
DX: O99.891 Other specified diseases and conditions complicating pregnancy (principal); O35.EXX0 Maternal care for other (suspected) fetal abnormality and damage, fetal genitourinary anomalies, not applicable or unspecified; M54.9 Dorsalgia, unspecified; Z3A.00 Weeks of gestation of pregnancy not specified
CPT/HCPCS: 36415; 82951

== ENCOUNTER 2025-09-16 13:23 | Outpatient (CLI) | payer OTHER, SELFPAY ==
--- OUTSIDE RECORDS SUMMARY | 2025-09-16 13:25 | XMS_ITS | Data Portability ---
Author Organization [facility] Address [address] [place] [address] Assessment Encounter Date Assessment Date Assessment LastModified by Organization Details LastModified Time 01/13/2025 01/13/2025 -Medications were reviewed and any necessary updates and renewals were made, patient instructed to complete as prescribed. -The potential side effects of medications were discussed. -Counseling was done on care goals and ways to prevent future hospitalizatio ns. -Further treatment per orders listed below. [email or web address] Not available 01/13/2025 09:14:19 01/16/2025 01/16/2025 24 yo here for f/u on SAB Not available 01/16/2025 16:20:54 01/27/2025 01/27/2025 24 yo here for f/u after miscarriage Not available 01/28/2025 14:20:25 Plan of Treatment Reminders Order Date Submit Date Provider Last Modified By Organization Details Last Modified Time Details Appointments None record ed. Lab rapid strep group A, throat 2024 025 [facility], [address] [place] [address] , [place], [address], 09:34:56 rapid flu (A+B) 2024 025 [facility], [address] [place] [address] , [place], [address], 09:34:56 rapid SARS CoV + SARS CoV 2 Ag, QL IA, respir atory specim en 2024 025 [facility], [address] [place] [address] , [place], [address], 5 09:34:56 HCG, intact + beta subuni t, quant, serum or plasma 2024 025 [facility], [address] [place] [address], [address], 5 09:31:28 urinal ysis, dipsti ck 2024 025 [facility], [address] [place] [address] , [place], [address], 5 12:11:18 drug screen , 14 drugs (detec timed) , urine 2024 025 [facility], [address], [address], [place], [address], 5 20:16:34 HbA1c (hemog lobin A1c), blood 2024 025 [facility], [address], [address], [place], [address], 5 20:14:04 varice lla zoster virus IgG Ab, QL, IA, serum 2024 025 [facility], [address], [address], [place], [address], 5 20:14:05 prenat al panel 2024 025 [facility], [address], [address] [address], [place], [address], 5 20:14:02 pregna ncy test, urine [address] [facility], [address] [place] [address] , [place], [address], 5 13:36:39 urinal ysis, dipsti ck [address] [facility] [address] [facility], [address] [place] [address] , [place], [address], 5 13:36:39 unlist ed lab - inheri test(R )CF / sma panel 2024 025 [facility], [address], [address], [place], [address], 20:14:03 Referral None record ed. Procedures None record ed. Surgeries None record ed. Imaging US, obstet claudia, 1st trimes ter 2024 025 [facility], [address] [place] [address] , [place], [address], 5 14:21:07 US, obstet claudia, 1st trimes ter 2024 025 hariiz [facility], [address] [place] [address] , [place], [address], 5 13:20:38 Medication Orders dexame thason e sodium phosph ate 4 mg/mL inject ion soluti on 2024 025 [email or web address] Not available 09:54:37 Prenat al 28 mg iron-8 00 mcg tablet 2024 025 [facility] - [address], [place], [address], 5 13:36:38 Patient TargetsNo targets recorded. Patient Instructions Encounter Date Encounter Id Patient Instructions Last Modified By Organization Details Last Modified Time 01/06/2025 [id number] nutrition during : care instructions Not available 01/06/2025 13:36:38 body mass index: care instructions Not available 01/06/2025 13:36:37 learning about healthy weight Not available 01/06/2025 13:36:38 -Discussed all lab work ordered today, pt consents to all. We will call abnormal test results in 7-10 days. Patient is advised that they will be notified of the availability of normal results from [employer] by phone call, text or email. Not available 01/06/2025 13:25:09 01/13/2025 [id number] body mass index: care instructions [email or web address] Not available 01/13/2025 12:11:18 learning about healthy weight [email or web address] Not available 01/13/2025 12:11:18 01/16/2025 [id number] miscarriage: car e instructions Not available 01/16/2025 13:53:50 Suspect complete d as bleeding has tapered off. Plan f/u in 2 wk with US to ensure completed Not available 01/16/2025 16:21:41 01/27/2025 [id number] Doing well after SAB Declines contraception Not [...] ===== ===== ===== === Not Available [facility] ([facility]) [address] [facility], [place], [address], 01/12/2025 20:16:34 01/07/20 25 01/12/2025 COMPL IANCE DRUG JAY SIS, UR pdf . Not Available [facility] ([facility]) [address] [facility], [place], [address], 01/12/2025 20:16:34 01/07/20 25 01/07/2025 PREGN NICOLA, INITI AL SCREE N HBsAg screen Negati ve negati ve Not Available [facility] ([facility]) [address] [facility], [place], [address], 01/24/2025 20:14:02 01/07/20 25 01/07/2025 PREGN NICOLA, INITI AL SCREE N HCV Ab Non Reacti ve non reacti ve Not Available [facility] ([facility]) [address] [facility], [place], [address], 01/24/2025 20:14:02 01/07/20 25 01/07/2025 PREGN NICOLA, INITI AL SCREE N interpretati on: Commen t Not infec yung with HCV unles s early or acute infec tion is suspe cted (whic h may be delay ed in an immun ocomp romis ed indiv idual ), or other evide nce exist s to indic ate HCV infec tion. Not Available [facility] ([facility]) [address] [facility], [place], [address], 01/24/2025 20:14:02 01/07/20 25 01/07/2025 PREGN NICOLA, INITI AL SCREE N RPR Non Reacti ve non reacti ve Not Available [facility] ([facility]) [address] [facility], [place], [address], 01/24/2025 20:14:02 01/07/20 25 01/07/2025 PREGN NICOLA, INITI AL SCREE N rubella antibodies, IgG 2.68 index immune >0.99 Non-i mmune <0.90 Equiv ocal 0.90 - 0.99 Immun e >0.99 Not Available [facility] ([facility]) [address] [place], [address], 01/24/2025 20:14:02 01/07/20 25 01/07/2025 PREGN NICOLA, INITI AL SCREE N HIV Ab/P24 Ag screen Non Reacti ve non reacti ve HIV-1 /HIV- 2 antib odies and HIV-1 p24 antig en were NOT detec yung. There is no labor atory evide nce of HIV infec tion. HIV Negat karen Not Available [facility] ([facility]) [address] [place], [address], 01/24/2025 20:14:02 01/07/20 25 01/07/2025 PREGN NICOLA, INITI AL SCREE N WBC 7.2 x10e3 /uL 3.4-10 .8 normal Not Available [facility] ([facility]) [address] [place], [address], 01/24/2025 20:14:02 01/07/20 25 01/07/2025 PREGN NICOLA, INITI AL SCREE N RBC 5.16 x10e6 /uL 3.77-5 .28 normal Not Available [facility] ([facility]) [address] [place], [address], 01/24/2025 20:14:02 01/07/20 25 01/07/2025 PREGN NICOLA, INITI AL SCREE N hemoglobin 14.5 g/dL 11.1-1 5.9 normal Not Available [facility] ([facility]) [address] [place], [address], 01/24/2025 20:14:02 01/07/20 25 01/07/2025 PREGN NICOLA, INITI AL SCREE N hematocrit 42.7 % 34.0-4 6.6 normal Not Available [facility] ([facility]) [address] [place], [address], 01/24/2025 20:14:02 01/07/20 25 01/07/2025 PREGN NICOLA, INITI AL SCREE N MCV 83 fL 79-97 normal Not Available [facility] ([facility]) [address] [place], [address], 01/24/2025 20:14:02 01/07/20 25 01/07/2025 PREGN NICOLA, INITI AL SCREE N MCH 28.1 pg 26.6-3 3.0 normal Not Available [facility] ([facility]) [address] [place], [address], 01/24/2025 20:14:02 01/07/20 25 01/07/2025 PREGN NICOLA, INITI AL SCREE N MCHC 34.0 g/dL 31.5-3 5.7 normal Not Available [facility] ([facility]) [address] [place], [address], 01/24/2025 20:14:02 01/07/20 25 01/07/2025 PREGN NICOLA, INITI AL SCREE N RDW 12.3 % 11.7-1 5.4 Not Available [facility] ([facility]) [address] [place], [address], 01/24/2025 20:14:02 01/07/20 25 01/07/2025 PREGN NICOLA, INITI AL SCREE N platelets 346 x10e3 /uL 150-45 0 normal Not Available [facility] ([facility]) [address] [place], [address], 01/24/2025 20:14:02 01/07/20 25 01/07/2025 PREGN NICOLA, INITI AL SCREE N neutrophils 66 % not estab. normal Not Available [facility] ([facility]) [address] [facility], [place], [address], 01/24/2025 20:14:02 01/07/20 25 01/07/2025 PREGN NICOLA, INITI AL SCREE N lymphs 25 % not estab. normal Not Available [facility] ([facility]) [address] [facility], [place], [address], 01/24/2025 20:14:02 01/07/20 25 01/07/2025 PREGN NICOLA, INITI AL SCREE N monocytes 6 % not estab. normal Not Available [facility] ([facility]) [address] [facility], [place], [address], 01/24/2025 20:14:02 01/07/20 25 01/07/2025 PREGN NICOLA, INITI AL SCREE N eos 2 % not estab. normal Not Available [facility] ([facility]) [address] [facility], [place], [address], 01/24/2025 20:14:02 01/07/20 25 01/07/2025 PREGN NICOLA, INITI AL SCREE N basos 1 % not estab. normal Not Available [facility] ([facility]) [address] [facility], [place], [address], 01/24/2025 20:14:02 01/07/20 25 01/07/2025 PREGN NICOLA, INITI AL SCREE N immature cells PROMOTIONAL MARKETING AGENT Not Available [facility] ([facility]) [address] [facility], [place], [address], 01/24/2025 20:14:02 01/07/20 25 01/07/2025 PREGN NICOLA, INITI AL SCREE N neutrophils (absolute) 4.8 x10e3 /uL 1.4-7. 0 normal Not Available [facility] ([facility]) [address] [facility], [place], [address], 01/24/2025 20:14:02 01/07/20 25 01/07/2025 PREGN NICOLA, INITI AL SCREE N lymphs (absolute) 1.8 x10e3 /uL 0.7-3. 1 normal Not Available [facility] ([facility]) [address] [place], [address], 01/24/2025 20:14:02 01/07/20 25 01/07/2025 PREGN NICOLA, INITI AL SCREE N monocytes(ab solute) 0.5 x10e3 /uL 0.1-0. 9 normal Not Available [facility] ([facility]) [address] [place], [address], 01/24/2025 20:14:02 01/07/20 25 01/07/2025 PREGN NICOLA, INITI AL SCREE N eos (absolute) 0.1 x10e3 /uL 0.0-0. 4 normal Not Available [facility] ([facility]) [address] [place], [address], 01/24/2025 20:14:02 01/07/20 25 01/07/2025 PREGN NICOLA, INITI AL SCREE N baso (absolute) 0.1 x10e3 /uL 0.0-0. 2 normal Not Available [facility] ([facility]) [address] [place], [address], 01/24/2025 20:14:02 01/07/20 25 01/07/2025 PREGN NICOLA, INITI AL SCREE N immature granulocytes 0 % not estab. Not Available [facility] ([facility]) [address] [place], [address], 01/24/2025 20:14:02 01/07/20 25 01/07/2025 PREGN NICOLA, INITI AL SCREE N immature grans (abs) 0.0 x10e3 /uL 0.0-0. 1 Not Available [facility] ([facility]) [address] [place], [address], 01/24/2025 20:14:02 01/07/20 25 01/07/2025 PREGN NICOLA, INITI AL SCREE N NRBC PROMOTIONAL MARKETING AGENT Not Available [facility] ([facility]) [address] [place], [address], 01/24/2025 20:14:02 01/07/20 25 01/07/2025 PREGN NICOLA, INITI AL SCREE N hematology comments: PROMOTIONAL MARKETING AGENT Not Available [facility] ([facility]) [address] [place], [address], 01/24/2025 20:14:02 01/07/20 25 01/07/2025 PREGN NICOLA, INITI AL SCREE N specific gravity 1.029 1.005- 1.030 normal Not Available [facility] ([facility]) [address] [place], [address], 01/24/2025 20:14:02 01/07/20 25 01/07/2025 PREGN NICOLA, INITI AL SCREE N pH 6.5 5.0-7. 5 normal Not Available [facility] ([facility]) [address] [place], [address], 01/24/2025 20:14:02 01/07/20 25 01/07/2025 PREGN NICOLA, INITI AL SCREE N urine-color Yellow yellow Not Available [facility] ([facility]) [address] [place], [address], 01/24/2025 20:14:02 01/07/20 25 01/07/2025 PREGN NICOLA, INITI AL SCREE N appearance Clear clear Not Available [facility] ([facility]) [address] [place], [address], 01/24/2025 20:14:02 01/07/20 25 01/07/2025 PREGN NICOLA, INITI AL SCREE N WBC esterase Negati ve negati ve Not Available [facility] ([facility]) [address] [place], [address], 01/24/2025 20:14:02 01/07/20 25 01/07/2025 PREGN NICOLA, INITI AL SCREE N protein Trace negati ve/tra ce Not Available [facility] ([facility]) [address] [place], [address], 01/24/2025 20:14:02 01/07/20 25 01/07/2025 PREGN NICOLA, INITI AL SCREE N glucose Negati ve negati ve Not Available [facility] ([facility]) [address] [place], [address], 01/24/2025 20:14:02 01/07/20 25 01/07/2025 PREGN NICOLA, INITI AL SCREE N ketones Trace negati ve abnormal Not Available [facility] ([facility]) [address] [place], [address], 01/24/2025 20:14:02 01/07/20 25 01/07/2025 PREGN NICOLA, INITI AL SCREE N occult blood Negati ve negati ve Not Available [facility] ([facility]) [address] [place], [address], 01/24/2025 20:14:02 01/07/20 25 01/07/2025 PREGN NICOLA, INITI AL SCREE N bilirubin Negati ve negati ve Not Available [facility] ([facility]) [address] [place], [address], 01/24/2025 20:14:02 01/07/20 25 01/07/2025 PREGN NICOLA, INITI AL SCREE N urobilinogen ,semi-qn 1.0 mg/dL 0.2-1. 0 normal Not Available [facility] ([facility]) [address] [place], [address], 01/24/2025 20:14:02 01/07/20 25 01/07/2025 PREGN NICOLA, INITI AL SCREE N nitrite, urine Negati ve negati ve Not Available [facility] ([facility]) [address] [facility], [place], [address], 01/24/2025 20:14:02 01/07/20 25 01/07/2025 PREGN NICOLA, INITI AL SCREE N microscopic examination Commen t Micro scopi c follo ws if indic ated. Not Available [facility] ([facility]) [address] [facility], [place], [address], 01/24/2025 20:14:02 01/07/20 25 01/07/2025 PREGN NICOLA, INITI AL SCREE N microscopic examination See below: Micro scopi c was indic ated and was perfo rmed. Not Available [facility] ([facility]) [address] [facility], [place], [address], 01/24/2025 20:14:02 01/07/20 25 01/07/2025 PREGN NICOLA, INITI AL SCREE N WBC None seen /hpf 0 - 5 Not Available [facility] ([facility]) [address] [facility], [place], [address], 01/24/2025 20:14:02 01/07/20 25 01/07/2025 PREGN NICOLA, INITI AL SCREE N RBC None seen /hpf 0 - 2 Not Available [facility] ([facility]) [address] [facility], [place], [address], 01/24/2025 20:14:02 01/07/20 25 01/07/2025 PREGN NICOLA, INITI AL SCREE N epithelial cells (non renal) 0-10 /hpf 0 - 10 Not Available [facility] ([facility]) [address] [place], [address], 01/24/2025 20:14:02 01/07/20 25 01/07/2025 PREGN NICOLA, INITI AL SCREE N epithelial cells (renal) PROMOTIONAL MARKETING AGENT Not Available [facility] ([facility]) [address] [facility], [place], [address], 01/24/2025 20:14:02 01/07/20 25 01/07/2025 PREGN NICOLA, INITI AL SCREE N casts None seen /lpf none seen Not Available [facility] ([facility]) [address] [facility], [place], [address], 01/24/2025 20:14:02 01/07/20 25 01/07/2025 PREGN NICOLA, INITI AL SCREE N cast type PROMOTIONAL MARKETING AGENT Not Available [facility] ([facility]) [address] [facility], [place], [address], 01/24/2025 20:14:02 01/07/20 25 01/07/2025 PREGN NICOLA, INITI AL SCREE N crystals PROMOTIONAL MARKETING AGENT Not Available [facility] ([facility]) [address] [facility], [place], [address], 01/24/2025 20:14:02 01/07/20 25 01/07/2025 PREGN NICOLA, INITI AL SCREE N crystal type PROMOTIONAL MARKETING AGENT Not Available [facility] ([facility]) [address] [facility], [place], [address], 01/24/2025 20:14:02 01/07/20 25 01/07/2025 PREGN NICOLA, INITI AL SCREE N mucus threads PROMOTIONAL MARKETING AGENT Not Available [facility] ([facility]) [address] [facility], [place], [address], 01/24/2025 20:14:02 01/07/20 25 01/07/2025 PREGN NICOLA, INITI AL SCREE N bacteria None seen none seen/f ew Not Available [facility] ([facility]) [address] [facility], [place], [address], 01/24/2025 20:14:02 01/07/20 25 01/07/2025 PREGN NICOLA, INITI AL SCREE N yeast PROMOTIONAL MARKETING AGENT Not Available [facility] ([facility]) [address] [facility], [place], [address], 01/24/2025 20:14:02 01/07/20 25 01/07/2025 PREGN NICOLA, INITI AL SCREE N trichomonas PROMOTIONAL MARKETING AGENT Not Available [facility] ([facility]) [address] [facility], [place], [address], 01/24/2025 20:14:02 01/07/20 25 01/07/2025 PREGN NICOLA, INITI AL SCREE N comment PROMOTIONAL MARKETING AGENT Not Available [facility] ([facility]) [address] [facility], [place], [address], 01/24/2025 20:14:02 01/07/20 25 01/09/2025 PREGN NICOLA, INITI AL SCREE N ABO grouping O Not Available [facility] ([facility]) [address] [facility], [place], [address], 01/24/2025 20:14:02 01/07/20 25 01/09/2025 PREGN NICOLA, INITI AL SCREE N Rh factor Positi ve Pleas e note: Prior recor ds for this patie nt's ABO / Rh type are not avail able for addit ional verif icati on. Not Available [facility] ([facility]) [address] [facility], [place], [address], 01/24/2025 20:14:02 01/07/20 25 01/09/2025 PREGN NICOLA, INITI AL SCREE N antibody screen Negati ve negati ve Not Available [facility] ([facility]) [address] [facility], [place], [address], 01/24/2025 20:14:02 01/07/20 25 01/09/2025 PREGN NICOLA, INITI AL SCREE N chlamydia trachomatis, ALANIS Negati ve negati ve Not Available [facility] ([facility]) [address] [facility], [place], [address], 01/24/2025 20:14:02 01/07/20 25 01/09/2025 PREGN NICOLA, INITI AL SCREE N neisseria gonorrhoeae, ALANIS Negati ve negati ve Not Available [facility] ([facility]) [address] [place], [address], 01/24/2025 20:14:02 01/07/20 25 01/10/2025 PREGN NICOLA, INITI AL SCREE N urine culture,pren atal, w/gbs Final report abnormal Not Available [facility] ([facility]) [address] [facility], [place], [address], 01/24/2025 20:14:02 01/07/20 25 01/10/2025 PREGN NICOLA, [...] vitro by D test. Not Available [facility] ([facility]) [address] [facility], [place], [address], 01/24/2025 20:14:02 01/07/20 25 01/10/2025 PREGN NICOLA, [...] Clind amyci n R Not Available [facility] ([facility]) [address] [facility], [place], [address], 01/24/2025 20:14:02 01/07/20 25 01/24/2025 INHER ITEST (R)CF / SMA PANEL genes Commen t 2 genes Not Available [facility] ([facility]) [address] [facility], [place], [address], 01/24/2025 20:14:03 01/07/20 25 01/24/2025 INHER ITEST (R)CF / SMA PANEL ethnicity Commen t Not Provi ded Not Available [facility] ([facility]) [address] [facility], [place], [address], 01/24/2025 20:14:03 01/07/20 25 01/24/2025 INHER ITEST (R)CF / SMA PANEL specimen type Commen t Whole Blood Not Available [facility] ([facility]) [address] [facility], [place], [address], 01/24/2025 20:14:03 01/07/20 25 01/24/2025 INHER ITEST (R)CF / SMA PANEL genetic counselor PROMOTIONAL MARKETING AGENT Not Available [facility] ([facility]) [address] [facility], [place], [address], 01/24/2025 20:14:03 01/07/20 25 01/24/2025 INHER ITEST (R)CF / SMA PANEL indication Commen t Sanjuana er Test / Scree truong Not Available [facility] ([facility]) [address] [facility], [place], [address], 01/24/2025 20:14:03 01/07/20 25 01/24/2025 INHER ITEST (R)CF / SMA PANEL result: Commen t NEGAT KAREN Not Available [facility] ([facility]) [address] [facility], [place], [address], 01/24/2025 20:14:03 01/07/20 25 01/24/2025 INHER ITEST [...] affec yung pregn nicola. Not Available [facility] ([facility]) [address] [facility], [place], [address], 01/24/2025 20:14:03 01/07/20 25 01/24/2025 INHER ITEST (R)CF / SMA PANEL general comments PROMOTIONAL MARKETING AGENT Not Available [facility] ([facility]) [address] [facility], [place], [address], 01/24/2025 20:14:03 01/07/20 25 01/24/2025 INHER ITEST [...] ic Couns brenton holland e visit [email or web address] :[email or web address] [email or web address] netic -coun junito g or call [phone] GC-[phone] [phone] ([phone]). Not Available [facility] ([facility]) [address] [facility], [place], [address], 01/24/2025 20:14:03 01/07/20 25 01/24/2025 INHER ITEST (R)CF / SMA PANEL additional clinicalinfo rmation PROMOTIONAL MARKETING AGENT Not Available [facility] ([facility]) [address] [facility], [place], [address], 01/24/2025 20:14:03 01/07/20 25 01/24/2025 INHER ITEST [...] teste d is avail able at [email or web address] :[email or web address] om. Not Available [facility] ([facility]) [address] [facility], [place], [address], 01/24/2025 20:14:03 01/07/20 25 01/24/2025 INHER ITEST (R)CF / SMA PANEL methods/limi tations Commen t Next- gener ation Seque ncing (NGS) : Genom ic regio ns of inter est are selec yung using the [employer] ience (R) hybri dizat ion captu re [...] tion is perfo rmed by [employer] Genom ics and in-ho use algor ithms [...] ards and guide lines (Rich ards, PMID: [id number]; Reny, PMID: [id number]). Detai led varia nt class ifica [...] two copie s of SMN1 are detec yung, allel ic discr imina tion qPCR kristopherge [...] e arthur cteri stics deter mined by [employer]. It has not been clear ed or appro los by the Food and Drug Admin istra tion. [employer] Tenisha ic [employer] is a subsi diary of Labor atory Corpo ratio n of [employer] miniDaT ngs, using the brand [employer]. Inher itest (R) and GeneS eq(R) are ania tered servi ce ballard of Labor atory Corpo ratio n of [employer] miniDaT ngs. Not Available [facility] ([facility]) [address] [facility], [place], [address], 01/24/2025 20:14:03 01/07/20 25 01/24/2025 INHER ITEST (R)CF / SMA PANEL references Commen t Rashard AR, Kt i M, Lena an S et al. Scree truong for autos omal reces sive and X-enrique ked condi tions durin g pregn nicola and preco ncept ion: a pract ice resou rce of the [employer] ge of Medic al Tenisha ics and Genom ics ([facility] ). Tenisha Med 23, 7904 (2020 ). PMID: [id number] Not Available [facility] ([facility]) [address] [facility], [place], [address], 01/24/2025 20:14:03 01/07/20 25 01/24/2025 INHER ITEST (R)CF / SMA PANEL disorders tested Commen t Cysti c fibro sis (1 gene) . Autos omal reces sive: CFTR Spina l muscu lar atrop hy (1 gene) . Autos omal reces sive: SMN1 Not Available [facility] ([facility]) [address] [facility], [place], [address], 01/24/2025 20:14:03 01/07/20 25 01/24/2025 INHER ITEST (R)CF / SMA PANEL director review/relea se Commen t [place] nent Type Perfo rmed At Labor atory Direc tor Techn ical Esote keith Tenisha ic Rakel Fiore, PhD, compo nent, ID.me atori [employer], [employer], [employer] proce ssing [address] , [facility] [place], [phone] Techn ical Esote keith Tenisha ic Rakel Fiore, PhD, compo nent, ID.me atori [employer] jay sis [address], [place], [address] Profe ssion al Esote keith Tenisha ic Rakel Fiore, PhD, compo nent [employer], [employer] [address], [place], [phone] Elect irvin allen relea sed by Michelle Mccord, PhD, F[employer] Not Available [facility] ([facility]) [address] [facility], [place], [address], 01/24/2025 20:14:03 01/07/20 25 01/24/2025 INHER ITEST (R)CF / SMA PANEL pdf . Not Available [facility] ([facility]) [address] [facility], [place], [address], 01/24/2025 20:14:03 01/07/20 25 01/07/2025 HEMOG LOBIN A1C hemoglobin A1C 5.2 % 4.8-5. 6 normal Predi abete s: 5.7 - 6.4 Diabe kelsey: >6.4 Glyce vick contr ol for adult s with diabe kelsey: <7.0 Not Available [facility] ([facility]) [address] [facility], [place], [address], 01/24/2025 20:14:04 01/07/20 25 01/07/2025 VARIC IVAN- [...] not been acqui red. Not Available [facility] ([facility]) [address] [facility], [place], [address], 01/24/2025 20:14:05 01/07/20 25 01/06/2025 pregn nicola test, urine HCG positi ve Not Available [employer] [address] [place] [address] , [place], [address], 01/06/2025 08:42:29 01/14/20 US, obste tric, 1st trime ster No observ ation record ed. [email or web address] [facility] [employer] [address] [place] [address] , [place], [address], 01/13/2025 13:20:36 01/17/20 25 01/13/2025 US, obste tric, 1st trime ster No observ ation record ed. BARCODE [facility] [employer] [address] [place] [address] , [place], [address], 01/16/2025 11:51:06 01/25/20 25 01/27/2025 US, obste tric, 1st trime ster No observ ation record ed. [facility] [employer] [address] [place] [address] , [place], [address], 01/28/2025 14:21:05 02/11/20 25 01/27/2025 US, obste tric, 1st trime ster No observ ation record ed. BARCODE [facility] [employer] [address] [place] [address] , [place], [address], 02/10/2025 13:40:46 02/11/20 25 01/27/2025 US, obste tric, 1st trime ster No observ ation record ed. BARCODE [place] [facility] [employer] [address] [place], [address], 02/10/2025 13:52:37 Result Notes None recorded. Problems Name Problem SNOMED Code Status Onset Date Resolution Date Notes Provider Name and Address Organization Details Recorded Time Asthma 409103600 Active 2017 Megansusannah Hallman, ADDICTIONS COUNSELOR [address], [place], [address] , [place] [facility] 13:21:29 Dysmenor kalia 532252008 Completed 201701/06/2025 Megan Hallman, ADDICTIONS COUNSELOR [address], [place], [address] , [place] [facility] 13:21:59 Intermit tent asthma 893879921 Completed 201901/06/2025 Megan [place], ADDICTIONS COUNSELOR [address], [place], [address] , [place] [facility] 13:21:57 Exposure to SARS-CoV -2 Completed 201909/17/2022 Suad Stevens, ADDICTIONS COUNSELOR [address], [place], [address] , [place] [facility] 12:21:20 Chest pain 35167880 Completed 202101/06/2025 Megan Hallman ADDICTIONS COUNSELOR [address], [place], [address] , [place] [facility] 5 13:22:03 COVID-19 188890735 Completed 202101/06/2025 Megan Hallman APRN [address], [place], [address] , [place] [facility] 5 13:22:01 Irregula r periods 72720789 Completed 202101/06/2025 Megan Hallman ADDICTIONS COUNSELOR [address], [place], [address] , [place] [facility] 13:21:55 Overweig ht in klebero d 378240294 Completed 202101/06/2025 Megansusannah [place]man, [place] [address], [place], [address] , [place] [facility] 13:21:42 Liver function tests outside referenc e range 139611881 Completed 202101/06/2025 Megan [place], ADDICTIONS COUNSELOR [address], [place], [address] , [place] [facility] 13:21:53 Pain of breast 65039505 Completed 202201/06/2025 Megansusannah [place]man APRN [address], [place], [address] , [place] [facility] 13:21:44 Unintent ional weight gain 92635754468 4104 Completed 202201/06/2025 Megansusannah [place]man, [place] [address], [place], [address] , [place] [facility] 13:21:46 Lump in upper outer quadrant of right breast 99019481799 4108 Completed 202201/06/2025 Megansusannah [place]man, [place] [address], [place], [address] , [place] [facility] 13:21:50 Pregnanc y 80502613 Completed 202401/19/2025 Ruperto Clarke, RN [address], [place], [address] , [place] [facility] 15:44:28 Body mass index 25-29 - overweig ht 950386718 Completed 2024 BMI: 27 starting wgt: 154 HgbA1c: Megansusannah [place] APRN [address], [place], [address] , [place] [facility] 13:31:11 Body mass index 25-29 - overweig ht 962321157 Active 2024 BMI: 27 starting wgt: 154 HgbA1c: Megan [place], ADDICTIONS COUNSELOR [address], [place], [address] , [place] [facility] 13:31:11 Overweig ht 057996460 Active 2024 Megan [place], ADDICTIONS COUNSELOR [address], [place], [address] , [place] [facility] 13:24:47 Antenata l screenin g Completed 2024 Mat21- desires AFP- desires CF/SMA- drawn Megan [place], ADDICTIONS COUNSELOR [address], [place], [address] , [place] [facility] 13:34:54 Contrace ptive counseli ng Completed 2024 none Megan [place], ADDICTIONS COUNSELOR [address], [place], [address] , [place] [facility] 13:30:39 Immuniza tion due 251896685 Completed 2024 Covid- declined Tdap- Flu- declined 01/06/25 Megan [place], ADDICTIONS COUNSELOR [address], [place], [address] , [place] [facility] 13:30:53 Recreati onal drug user 151303469 Completed 2024 obhx UDS+ for THC [ ] rpt at 28wks Nissa Jules-Or paulo, DO [address], [place], [address] , [place] [facility] 11:42:19 Recreati onal drug user 228588110 Active 2024 obhx UDS+ for THC [ ] rpt at 28wks Megan [place], ADDICTIONS COUNSELOR [address], [place], [address] , [place] [facility] 5 23:09:13 Gestatio n period, 7 weeks 15795135 Completed 202401/24/2025 Megan [place], ADDICTIONS COUNSELOR [address], [place], [address] , [place] [facility] 23:09:05 Gestatio n period, 8 weeks 45111513 Completed 202401/24/2025 Megan [place], ADDICTIONS COUNSELOR [address], [place], [address] , [place] [facility] 23:09:09 Finding of urine substanc e level 591804833 Active 2024 Megan [place], ADDICTIONS COUNSELOR [address], [place], [address] , [place] [facility] 5 23:08:58 Vaginal bleeding 961518446 Active 2024 Megan [place], ADDICTIONS COUNSELOR [address], [place], [address] , [place] [facility] 23:09:18 Acute urinary tract infectio n 808780519 Active 202401/06/25 GBS in urine Megan [place], ADDICTIONS COUNSELOR [address], [place], [address] , [place] [facility] 5 23:09:38 Acute pharyngi tis 855283176 Active 2024 Joe, DO [address], [place], [address] , [place] [facility] 09:31:26 [...] 16:09:08 006 Remove tonsils and adenoids completed [facility] Care Management [facility] [address], [place], [address], [place] - [facility] 09/12/2016 13:31:01 Imaging Results [...] 02/10/20 10;Indic ation: Acute Otitis Media - (4877 );Prin yung: 01/31/20 10 Not Available Not [...] radha 1 tsp qd 05/25 completed zithromy radah 200m g;Record ed Status: Recorded on: 12/19/19 [...] Updated DateTime 01/06/2025 160.02 cm 27.4 kg/m2 69198.1 g 0 120/76 mm[Hg] Cortney Woodard [facility] 13:13:19 Date Recorded Body height Body mass index (BMI) Body weight Pain severity - 0-10 verbal numeric rating [Score] - Reported Systolic And Diastolic Provider Name and Address Organization Details Last Updated DateTime 01/13/2025 160.02 cm 27.5 kg/m2 44567.82 g 9 120/76 mm[Hg] Ayde Li [facility] 11:54:32 Date Recorded Body height Body mass index (BMI) Body weight Pain severity - 0-10 verbal numeric rating [Score] - Reported Systolic And Diastolic Provider Name and Address Organization Details Last Updated DateTime 01/16/2025 160.02 cm 27.4 kg/m2 32706.66 g 0 128/82 mm[Hg] Nissa Munoz [facility] 11:38:56 Date Recorded Body height Pain severity - 0-10 verbal numeric rating [Score] - Reported Body mass index (BMI) Body weight Systolic And Diastolic Provider Name and Address Organization Details Last Updated DateTime 01/27/2025 160.02 cm 0 28.3 kg/m2 01440.78 g 122/80 mm[Hg] Nissa Hamlinmons [facility] 14:19:59 Date Recorded Body height Body mass index (BMI) Body weight Body temperature Heart rate Oxygen saturation Pain severity - 0-10 verbal numeric rating [Score] - Reported Systolic And Diastolic Provider Name and Address Organization Details Last Updated DateTime 160.02 cm 32.8 kg/m2 01795.5 9 g 98.5 [degF] 90 /min 99 % 4 114/78 mm[Hg] Nissa Reddy [place] - [facility] 09:23:01 Social History Question Answer Notes LastModified by Organizat ion Details LastModified Time Tobacco Smoking Status Never Smoker Nissa hernandez [place] - [facility] 05/28/2023 10:43:32 Do You Have An Advance Directive? No [email or web address] Information not available 03/17/2018 Animal Exposure? Yes Informat ion not available 10/17/2019 Are You Blind Or Do You Have Difficulty Seeing? No [email or web address] Information not available 03/17/2018 Is Blood Transfusion Acceptable In An Emergency? Yes [email or web address] Information not available 03/17/2018 What Is Your Level Of Caffeine Consumption? Occasional [email or web address] Information not available 09/12/2016 How Much Tobacco Do You Chew? None Information not available 09/12/2016 In The 14 Days Before Symptom Onset, Have You Had Close Contact With A Laboratory-confi rmed COVID-19 While That Case Was Ill? No [email or web address] Information not available 09/17/2022 In The 14 Days Before Symptom Onset, Have You Had Close Contact With A Person Who Is Under Investigation For COVID-19 While That Person Was Ill? No Information not available 09/17/2022 Have You Been To An Area Known To Be High Risk For COVID-19? No [email or web address] Information not available 09/17/2022 Are You Deaf Or Do You Have Serious Difficulty Hearing? No [email or web address] Information not available 03/17/2018 What Type Of Diet Are You Following? REGULAR Information not available 09/12/2016 Which Illicit Or Recreational Drugs Have You Used? THC Stopped When She Found Out She Was Information not available 01/13/2025 Have You Processed Blood Or Body Fluids From An Ebola Virus Disease Patient Without Appropriate PPE? No [email or web address] Information not available 09/17/2022 Do You Reside In Or Have You Traveled To An Area Where Ebola Virus Transmission Is Active? No Information not available 09/17/2022 What Is The Highest Grade Or Level Of School You Have Completed Or The Highest Degree You Have Received? [id number] Information not available 01/06/2025 How Many Days Of Moderate To Strenuous Exercise, Like A Brisk Walk, Did You Do In The Last 7 Days? 0 [email or web address] Information not available 03/17/2018 On Those Days That You Engage In Moderate To Strenuous Exercise, How Many Minutes, On Average, Do You Exercise? 0 [email or web address] Information not available 03/17/2018 Have There Been Any Changes To Your Family Or Social Situation? No [email or web address] Information not available 09/17/2022 How Hard Is It For You To Pay For The Very Basics Like Food, Housing, Medical Care, And Heating? [id number] Information not available 03/17/2018 What Is The Fluoride Status Of Your Home? Non-fluoridat ed [email or web address] Information not available 09/17/2022 Are There Any Guns Present In Your Home? No Information not available 10/17/2019 Have You Recently Or Are You Planning To Travel To An Area With Zika Virus? No [email or web address] Information not available 09/17/2022 Do You Use Insect Repellent Routinely? Yes Information not available 10/17/2019 Live Alone Or With Others? With Others Information not available 03/17/2018 Do You Have A Medical Power Of Front Office Help? No [email or web address] Information not available 09/17/2022 What Was The Date Of Your Most Recent Tobacco Screening? 01/06/2025 Information not available 01/06/2025 How Many Children Do You Have? 0 [email or web address] Information not available 03/17/2018 Performs Monthly Self-breast Exam? Yes [email or web address] Information not available 03/17/2018 Do You Use Protection During Sex? Always Information not available 03/17/2018 What Is Your Relationship Status? Single [email or web address] Information not available 03/17/2018 Do You Use Your Seat Belt Or Car Seat Routinely? Yes [email or web address] Information not available 09/12/2016 Seat Belts Used Routinely Yes [email or web address] Information not available 03/17/2018 Are You Sexually Active? Yes [email or web address] Information not available 03/17/2018 Do You Have Smoke And Carbon Monoxide Detectors In Your Home? Yes Information not available 09/12/2016 Are You Passively Exposed To Smoke? No Information not available 09/17/2022 How Much Tobacco Do You Smoke? No [email or web address] Information not available 05/28/2023 General Stress Level Low [email or web address] Information not available 03/17/2018 Do You Use Sunscreen Routinely? Yes [email or web address] Information not available 09/12/2016 Has Tobacco Cessation Counseling Been Provided? Yes Information not available 01/06/2025 On What Date Was Tobacco Cessation Counseling Provided? 01/06/2025 [email or web address] Answered No To The Tobacco Cessation Counseling Provided Question On 03/17/2018. [email or web address] Information not available 01/06/2025 How Many Years Have You Smoked Tobacco? 0 [email or web address] Information not available 09/12/2016 Have You Used IV Drugs? No Information not available 01/06/2025 Do You Have Difficulty Walking Or Climbing Stairs? No Information not available 03/17/2018 Year In School 9 Informatio n not available 03/17/2018 What Contraceptive Method Was Reported At Start Of This Visit? None [email or web address] Information not available 05/28/2023 What Contraceptive Method Was Reported At End Of This Visit? None [email or web address] Information not available 01/06/2025 Do You Want To Talk About Contraception Or Prevention During Your Visit Today? No - This Question Does Not Apply To Me/I Prefer Not To Answer [email or web address] Information not available 01/06/2025 How Many Years Have You Used E-cigarettes Or Vape? 4 Information not available 01/06/2025 Do You Have Any Future Plans To Get ? Yes, I Want To Become [email or web address] Information not available 05/28/2023 What Is Your Reason For Having No Contraceptive Method At Start Of This Visit? Other [email or web address] Information not available 01/06/2025 What Is Your Reason For Having No Contraceptive Method At End Of This Visit? Other Information not available 01/06/2025 Sex: Female Functional Status Question Answer Note LastModified by Organizat ion Details LastModified Time Do you or have you ever used smokeless tobacco? Never used smokeless tobacco [email or web address] Information not available 01/06/2025 Are you currently employed? Yes [email or web address] Information not available 01/06/2025 Do you have transportation difficulties? No [email or web address] Information not available 01/06/2025 Are you able to care for yourself independently? Yes [email or web address] Information not available 09/17/2022 Do you have difficulty dressing, bathing, grooming, or toileting? No [email or web address] Information not available 03/17/2018 Do you or have you ever used e-cigarettes or vape? Former user of electronic cigarettes Information not available 01/13/2025 What is your exercise level? Occasional [email or web address] Information not available 09/12/2016 Do you use any illicit or recreational drugs? Yes Information not available 01/06/2025 Do you or have you ever used any other forms of tobacco or nicotine? Yes Information not available 09/17/2022 What is your level of alcohol consumption? None [email or web address] Information not available 09/12/2016 What is your status? [email or web address] Information no t available 01/06/2025 Are you able to walk independently without assistance or assistive devices? YESWOREST [email or web address] Information not available 03/17/2018 Do you have difficulty doing errands alone? No [email or web address] Information not available 03/17/2018 What is your occupation? [employer] [email or web address] Information not available 01/06/2025 Mental Status Question Answer Note LastModified by Organizat ion Details LastModified Time Do you feel stressed (tense, restless, nervous, or anxious, or unable to sleep at night)? [id number] [email or web address] Information not available 03/17/2018 Do you have difficulty concentrating, remembering or making decisions? No [email or web address] Information no t available 03/17/2018 Family History Relationship Description Onset Age of this Age Resolved Age Notes LastModified by Organization Details LastModified Time Maternal Grandmother Heart disease [email or web address] Not available 09/12 13:14:22 Maternal Grandmother Neoplasm of brain [email or web address] Not available 2024 12:51:36 Mother Hyperlipidem ia [email or web address] Not available 2024 12:51:36 Mother Essential hypertension [email or web address] Not available 01/2025 12:51:36 Mother Diabetes mellitus [email or web address] Not available 2017 15:46:12 Maternal Grandfather Myocardial infarction [email or web address] Not available 01/06 12:51:36 Maternal Aunt Female infertility [email or web address] Not available 01/2025 12:51:36 Maternal Aunt Endometriosi s (clinical) API-251 Not available 01/2025 12:51:36 Medical History Condition Response Pancreatitis N Coronary Artery Disease N Other N Gout N Atrial Fibrillation N congenital heart disease N Kidney Stones N Blood Diseases N Hyperthyroidism N Rheumatoid arthritis N Blood Transfusion N Erectile Dysfunction N amputation N Colonoscopy N Skin Lesions N Depression N COPD N Pneumonia N Incontinence N Murmur N Edema N Alzheimer's Disease N Migraine Headaches N Tobacco Abuse N Anxiety Disorder N Muscle, Joint, or Bone Problems N Hemorrhoids N Obesity N Vision or Eye Problems N Restless Leg Syndrome N Arthritis N Polyps N Infertility N Mental Disorder N Carpal Tunnel N Acid Reflux (GERD) N Cancer N Varicosities N Stroke N Tendonitis N Crohn's Disease N Hypercholesterolemia N Skin Cancer N Headaches N Fibromyalgia N Irritable Bowel Syndrome N Anal Fissure N Kidney Disease N Heart Problems N [...] Than N Lung Disease N Hypothyroidism N Developmental or Behavioral Disorders N Defects or Inherited Disease N Breast Problem N Difficulty Swallowing N Ovarian Cyst N Anesthesia Complications N Testosterone Deficiency N Meniere's disease N Head Injury/Concussion N Interstitial Cystitis N Congenital Anomalies N Hypoglycemia N Blood clot N Vitamin D Deficiency N Cellulitis N Endometriosis N Fracture N Bladder or Kidney Problems N Liver Disease N Schizophrenia N Panic Disorder N Concussion N Spina Bifida N Allergies/Hayfever N Osteoarthritis N Parkinson's Disease N Disc Protrusion N STI N Esophagitis N Angina N Thyroid Problems N GI Problems N ADD/ADHD N Anemia N Multiple Sclerosis N Abnormal PAP N Lumbago N Mental Illness N Psychiatric Illness N Ovarian Cancer N Diabetes N Bedwetting N Degenerative Disc Disease N Seizures/Epilepsy N Congestive Heart Failure (CHF) N Syncope N Insomnia N Hyperlipidemia N Eczema N Diverticulitis N Dementia N Attention Deficient Disorder N Abuse/Domestic Violence N Ulcerative colitis N Cerebrovascular Disease N Depression N Guillain-[place] N Sleep Apnea N Aneurysm N Heart Disease N Bronchitis N Suicidal Ideation N Pre-Eclampsia N Hypertension [...] or pediatric 06/07/20 02 completed Not Available [facility] 07/13/2016 13:14:13 Hep B, adolescent or pediatric 07/07/20 02 completed Not Available [facility] 07/13/2016 13:14:13 Hep B, adolescent or pediatric 05/10/20 03 completed Not Available [facility] 07/13/2016 13:14:13 DTaP 07/07/20 02 completed Not Available [facility] 07/13/2016 13:14:13 DTaP 09/12/20 02 completed Not Available [facility] 07/13/2016 13:14:13 DTaP 11/10/19 03 completed Not Available [facility] 07/13/2016 13:14:13 DTaP 08/11/20 03 completed Not Available [facility] 07/13/2016 13:14:13 DTaP 05/11/20 06 completed Not Available [facility] 07/13/2016 13:14:14 Hib (PRP-OMP) 07/07/20 02 completed TRUE [place] [facility] 12/28/2024 08:48:32 Hib (PRP-OMP) 09/12/20 02 completed TRUE [place] [facility] 12/28/2024 08:48:32 Hib (PRP-OMP) 05/10/20 03 completed Nissa [place] null, [place] - [facility] 12/28/2024 08:48:32 IPV 07/07/20 02 completed Not Available [facility] 07/13/2016 13:14:14 IPV 09/12/20 02 completed Not Available [facility] 07/13/2016 13:14:14 IPV 05/10/20 03 completed Not Available [facility] 07/13/2016 13:14:24 IPV 05/11/20 06 completed Not Available [facility] 07/13/2016 13:14:24 MMR 08/11/20 03 completed Not Available [facility] 07/13/2016 13:14:24 MMR 05/11/20 06 completed Not Available [facility] 07/13/2016 13:14:24 meningococcal MCV4P 03/31/20 14 completed Not Available [facility] 11/05/2019 02:21:32 HPV, unspecified formulation 03/31/20 14 completed Nissa [place] [facility] 12/28/2024 08:48:32 HPV, unspecified formulation 05/12/20 14 completed N[place] [facility] 12/28/2024 08:48:32 HPV, unspecified formulation 10/02/20 14 completed Nissa [place]ky [place] [facility] 12/28/2024 08:48:32 Tdap 03/31/20 14 completed Not Available [facility] 11/05/2019 02:21:32 Influenza, split virus, quadrivalent, preservative 09/17/20 22 cancelled patient objection Suad Stevens, ADDICTIONS COUNSELOR [address], [place], [address], [place] [facility] 09/17/2022 15:04:47 Hep A, ped/adol, 2 dose 12/08/19 18 completed Not Available [facility] 10/22/2019 03:54:54 meningococcal MCV4P 05/07/20 18 completed Not Available [facility] 10/22/2019 03:55:08 Hep A, ped/adol, 2 dose 07/20/20 18 completed Not Available [facility] 10/22/2019 03:55:14 Influenza, split virus, quadrivalent, preservative 10/19/19 20 completed Not Available [facility] 10/22/2019 03:56:18 Past Encounters Encounter ID Performer Location Encounter Start Date Encounter Closed Date Diagnosis/Indication Diagnosis SNOMED-CT Code Diagnosis ICD10 Code Diagnosis IMO Codes Diagnosis Note [id number] [facility] [address] [place] [address] [id number] 12/18/2008 00:00:00 [id number] [facility] [address] [place] [address] [id number] 05/25/2009 00:00:00 [id number] [facility] [address] [place] [address] [id number] 05/25/2009 00:00:00 [id number] [facility] [address] [place] [address] [id number] 07/25/2009 00:00:00 [id number] [facility] [address] [place] [address] 07/25/2009 00:00:00 [id number] [facility] [address] [place] [address] 01/30/2010 00:00:00 [id number] [facility] [address] [place] [address] 03/07/2010 00:00:00 [id number] [facility] [address] [place] [address] 10/01/2011 00:00:00 [id number] [facility] [address] [place] [address] 10/01/2011 00:00:00 [id number] [facility] [address] [place] [address] 10/22/2011 00:00:00 [id number] [facility] [address] [place] [address] 02/02/2012 00:00:00 [id number] Renita Laird MD [address] [place] [id number] 09/15/2016 15:57:45 09/15/2016 16:28:54 Stomach cramps 63324554 R10.9 [id number] Pavan Munoz MD [address] [place] [id number] 12/05/2016 09:32:32 12/05/2016 10:10:29 History and physical examination, sports participation 589065331 Z02.5 Cleared for participat ion w/o restrictio n [id number] Rachel Islas APRN [address] [place] [id number] 07/02/2017 15:08:37 07/02/2017 15:37:14 Low back pain 877727452 M54.5 [id number] Renita [place] MD [address] [place] [id number] 07/06/2017 16:36:53 07/06/2017 17:19:00 Infection of skin 855314235 L08.9 [id number] Renita [place] MD [address] [place] [id number] 10/14/2017 15:52:10 10/14/2017 16:43:33 Viral bronchitis 13442051 J20.8 [id number] Renita [place] MD [address] [place] [id number] 12/07/2017 15:59:08 12/07/2017 16:38:21 Active or passive immunization 424192328 Z23 [id number] Renita [place] MD [address] [place] [id number] 12/30/2017 16:17:38 12/30/2017 16:57:15 Chondromalacia of patella 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 M22.41 Gastroesop hageal reflux disease without esophagitis 657829416 K21.9 [id number] [place] Mendoza [employer]INE ENGINEER [address] [place] [address] [place] [id number] 03/17/2018 15:32:18 03/17/2018 16:40:04 Initiation of depot contraception done 0093913588 71427 Z30.013 Screening for Chlamydia trachomatis 566589987 Z11.8 Dysmenorrhea 225242043 N 94.6 Depression screening 171 909950 Z13.89 Normal bod y mass index 59640667 Z68.52 [id number] Renita [place] MD [address] [place] [id number] 05/07/2018 15:37:13 05/07/2018 15:56:49 Active or passive immunization 745508381 Z23 [id number] Allison Butterfield APRN [place] [employer] [address] [place] [address] [place] [address]459 7 06/08/2018 14:37:11 06/08/2018 14:56:14 Initiation of depot contraception done 0755963136 68927 Z30.013 Dysmenorrhea 195643793 N 94.6 [id number] Megan Cornell [address] [place] [address] 7 07/20/2018 15:34:37 07/20/2018 17:53:13 Active or passive immunization 654186907 Z23 Pain in left knee 481150 4978 39468 M25.696 [id number] Allison Butterfield ADDICTIONS COUNSELOR [place] [employer] [address] [place] [address] [place] 35962-716 7 08/30/2018 14:38:01 08/30/2018 14:50:46 Initiation of depot contraception done 3248054673 91752 Z30.013 Dysmenorrhea 450269150 N 94.6 Surveillan ce of depot contraception done 4613971935 9104 Z30.42 [id number] Rachel Islas [address] [place] [address]044 7 09/01/2018 15:30:00 09/01/2018 16:33:21 Pain in throat 549024143 R07.0 Acute pharyngitis 363314 003 J02.9 [id number] Renita Laird MD [address] [place] [address]-712 7 10/25/2018 16:37:38 10/25/2018 17:19:04 Asthma 675943952 J45.909 Pain of le ft hip joint 1816199972 55124 M25.961 [id number] ORLANDO Mendoza DIESEL ENGINE ENGINEER [address] [place] [address] [place] 55998-921 7 11/22/2018 13:44:31 11/22/2018 14:06:59 Surveillance of depot contraception done 7031463428 9104 Z30.42 [id number] [place]O Osei DIESEL ENGINE ENGINEER [address] [place] [address] [place] 32388-555 7 02/17/2019 14:31:59 02/17/2019 14:58:31 Surveillance of depot contraception done 6062114484 91 Z30.42 [id number] Fadumo Wild MD [place] [employer] [address] [place] [address] [place] 58032-102 7 05/13/2019 08:52:52 05/13/2019 09:34:47 Surveillance of depot contraception done 2015278064 9104 Z30.42 Dysmenorrhea 545988487 N 94.6 [id number] [place] Osei DIESEL ENGINE ENGINEER [address] [place] [address] [place] 41774-269 7 08/05/2019 10:51:42 08/05/2019 11:27:20 Uses depot contraception 496048237 Z30.42 [id number] Renita Laird MD [address] [place] [address]-747 7 08/26/2019 13:39:42 08/26/2019 14:31:35 Viral gastroenteritis 750370495 A08.4 Nausea and vomiting 1692 1999 R11.2 [id number] Kaitlin Lopez MD [address] [place] [address]-003 7 10/17/2019 15:50:47 10/17/2019 18:23:45 Right upper quadrant pain 374608181 R10.11 [id number] Renita Laird MD [address] [place] [address]-238 7 10/19/2019 17:48:46 10/19/2019 18:40:06 Administration of influenza vaccine 22526709 Z23 Normal bod y mass index 48348658 Z68.52 85%ile [id number] Perez Delarosa MD [address] [place] [address]-463 7 05/03/2020 13:27:31 05/03/2020 16:47:01 Sore throat 767407520 J02.9 Patient has symptoms suggestive of acute [...] one week or so Numbness of hand 1163716 04 R20.0 Intermitte nt numbness affecting digits of hands. Will check labs and nerve conduction studies. See us back or go to Er right away should gets worse or develops any new symptoms or complaints . Follow up with us in 1-2 weeks to discuss test results and further management . Venereal d isease screening 463065011 Z11.3 Hyperlipid emia screening 039765667 Z13.220 Endocrine/ metabolic screening 515003304 Z13.373 [id number] Renita Laird MD [address] [place] [address]323 7 08/01/2020 17:05:38 08/01/2020 18:21:42 Intermittent asthma 001034702 J45.20 [id number] Perez Delarosa MD [address] [place] [address]-026 7 08/23/2020 09:47:49 08/23/2020 12:18:34 Exposure to SARS-CoV-2 318170952 Z20.828 Pt had an exposure to a [...] falls or other symptoms or complaints . [id number] DO Isidra [place] DIESEL ENGINE ENGINEER [address] [place] [address] [place] 59648-288 7 10/19/2020 13:48:46 10/19/2020 15:09:33 Abnormal uterine bleeding 8256063394 9100 N93.9 Schedule Contracept ion care management 755245215 Z30.9 Polycystic ovary syndrome 526700156 E28.2 [id number] Ovi Tucker MD [place] [employer] [address] [place] [address] [place] 23506-417 7 10/30/2020 15:28:07 10/30/2020 16:37:12 Abnormal uterine bleeding 8860062554 9100 N93.9 [id number] Fatou Bruner DO [place] [employer] [address] [place] [address] [place] 92185-952 7 04/01/2021 14:56:36 04/01/2021 16:23:14 Irregular periods 59000068 N92.6 Dysmenorrhea 268060110 N 94.6 [id number] Brent Tan PA-C [address] [place] [address]-620 7 09/04/2022 08:27:38 09/04/2022 10:46:10 Influenza-like symptoms 150988217 R68.89 Chest pain 46631087 R07. 9 recommende d evaluation at ER. pt declines transport by ambulance. voices understand ing and willingnes s to transport self COVID-19 040725445 U07.1 Disscussed supportive care with patient. Advised [...] to seek further treatment. Discussed quarantine period. [id number] [place]O Osei DIESEL ENGINE ENGINEER [address] [place] [address] [place] 516[address]-723 7 09/17/2022 11:21:42 09/17/2022 12:27:16 Routine gynecologic examination done 8239267818 9101 Z01.419 Depression screening 171 128935 Z13.89 Hypertensi on screening 924855982 Z13.6 Diet education 80629920 Z71.3 Encourage healthy eating/dec reased fats, sugars, fried foods Counseling 099665287 Z71 .82 Encouraged regular exercise 30-40min/d ay 4-5 days/wk Contracept ion care management 167796593 Z30.9 Examinatio n of blood pressure 209499089 Z01.30 Vaccine de clined by patient 1338035147 02 Z28.21 Pt declined flu vaccine today. Venereal d isease screening 317682517 Z11.3 Irregular periods 012379 07 N92.6 Liver func tion tests outside reference range 974929911 R94.5 Diabetes m ellitus screening 190451384 Z13.1 Overweight in childhood 545069550 Z68.53 Dysmenorrhea 399947622 N 94.6 [id number] [place] Osei DIESEL ENGINE ENGINEER [address] [place] [address] [place] 71217-592 7 12/10/2022 13:04:23 12/10/2022 13:44:43 Contraception care management 085065719 Z30.9 Pain of breast 18557062 N64.4 [id number] [place]O Osei DIESEL ENGINE ENGINEER [address] [place] [address] [place] 13915-683 7 05/28/2023 10:30:44 05/28/2023 11:28:48 Amenorrhea 13257122 N91.2 Unintentio nal weight gain 0471292828 47307 R63.5 Lump in up per outer quadrant of right breast 7779404787 33396 N63.11 Body mass index 30+ - obesity 728261584 Z68.33 Obesity 049142550 E66.9 [id number] [place] Law DIESEL ENGINE ENGINEER [facility] [place] [address]-329 7 01/06/2025 12:46:17 01/06/2025 13:50:24 Urine test positive 440284299 Z32.01 First trim kevin 50942630 Z34.01 94510432 Body mass index 25-29 - overweight 813805106 E66.3 83651532 Overweight 548554957 E66 .3 Gestation period, 7 weeks 62044970 Z3A.01 25638287 screening 2437 06691 Z36.0 [id number] NISSA BELL DO [place] [employer]INE ENGINEER [address] [facility] [place] 06017-604 7 01/13/2025 11:36:52 01/13/2025 12:49:41 First trimester 47878066 Z34.01 34371843 Body mass index 25-29 - overweight 042533001 E66.3 16417331 Overweight 673290784 E66 .3 screening 2437 96781 Z36.0 Gestation period, 8 weeks 42000238 Z3A.08 0020934 Finding of urine substance level 570553063 R82.5 0711032 THC+ please discuss at today's visit per Megan Hallman APRN //todd// 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 Per patient, it seems like she was passing tissue as well and yolk sac was noted in lower uterine segment.Alec antoinette would like expectant management since she is already passing tissue. Her bleeding is not excessive and she has good support at home.Follo w-up on Thursday or Thursday for reevaluati on. Trending beta hCGs [id number] MD Dawit Olea DIESEL ENGINE ENGINEER [address] [place] [address] [place] 12474-022 7 01/16/2025 11:25:30 01/16/2025 11:57:56 Miscarriage 82721597 O03.9 13629 [id number] Fadumo Wild MD [place] [employer] [address] [place] [address] [place] 37823-752 7 01/27/2025 13:18:26 01/27/2025 14:39:34 Miscarriage 56604086 O03.9 46047 [id number] Adam Diaz DO [address] [place] [address]52-009 7 06/30/2025 09:10:48 06/30/2025 10:08:24 Acute pharyngitis 579093039 J02.9 218319702 25 yo F (21 week ), presenting [...] Member ID Guarantor Name 06/30/2025 1 [facility] (MEDICAID HMO) Marianne Cole [id number] Bri Cole 01/06/2025 1 *SELF PAY* Ailyn Cole 07/28/2025 1 [employer] (MEDICAID HMO) Marianne Cole [id number] Bri Cole 07/28/2025 [place] [facility] (MEDICAID) Marianne Cole [id number] Bri Cole 11/29/2016 1 UNSPECIFIED REMIT PAYOR [...] hx, updating chart, documentin minutes Megan Hallman, ADDICTIONS COUNSELOR [address], [place], [address], [facility] 01/06/2025 13:41:59 01/13/2025 text/html see OB Worksheet Nissa Rodriguez , [address], [place], [address], [facility] - [facility] 01/13/2025 13:22:59 01/16/2025 text/html ROS as noted in the HPI Aubrie reports that after her last visit, she passed tissue and blood. Bleeding was heavy but is now tapering off. No fevers, chills, abnormal discharge. Grieving. Unsure about timeline of future conception. Declines contraception for now. Fadumo Wild MD [address], [place], [address], [facility] - [facility] 01/16/2025 16:21:53 01/27/2025 text/html ROS as noted in the HPI Aubrie is here for f/u after miscarriage. Lochia stopped. No pain, vaginal discharge. No cramping. Doing well emotionally Fadumo Wild MD [address], [place], [address], [facility] - [facility] 01/28/2025 14:21:46 06/30/2025 text/html Upper [...] weeks , is receiving OBGYN care at [facility] in [place], [place]. Adam Diaz, DO [address], [place], [address], [place] - [facility] 06/30/2025 10:47:54 OBGyn Episode Ob Episode Information Episode Created Date Number of Fetuses Patient Bloodtype Patient rh Status Prepregnancy Weight lbs Domestic Partner Domestic Partner Phone Father Name Cigar Packing Examiner Status 01/07/20 25 1 154 Aron, 21 unsure CLOSED Fetus Data First Name Last Name Admitted to NICU Weight (g) Sex Living Outcome Pediatric Complications Fetus ID Race Codes Race Delivery Type , Spontane ous [id number] Problems Problem Notes [facility]/circ if boy/unsure Problem Name Start Date End Date Resolution Snomed Code Not e Contraceptive counseling 01/06/2025 [id number] none Immunization due 01/06/2025 120877045 Co vid- declinedTdap-Flu- declined 01/06/25 Body mass index 25-29 - overweight 01/06/2025 967515876 BMI: 27starting wgt: 332IolC7a: Recreational drug user 01/13/2025 308567 002 obhx UDS+ for THC[ ] rpt at 28wks screening 01/06/2025 788318328 Mat21- desiresAFP- desiresCF/SMA- drawn Babar Calculation Initial [...] in lbs Pre/Post Dialysis Refused With clothes 154.909824579919 BP Diastolic BP Location Tested BP Systolic [...] in lbs Pre/Post Dialysis Refused With clothes 155.527447897683 BP Diastolic BP Location Tested BP Systolic BP Type 76 L arm 120 sitting Fetus Heart Rate Present Fetus Movement A No Comments OB ER f/u - was in ER on 01/11 - still taking Abx. c/o abdominal cramping and blood in urine. //ak//On 01/11/2025, patient went to 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 [place] today shows Yolk sac in the lower uterine segment, no pole. //JMO Flowsheet Date 01/16/2025 Mendoza Score Blood Edema Fundus Height Fundus Units Glucose Ketones Leukocytes Nitrite Labor Signs Protein Cervic Dilation Cervic Effacement Cervic Station Type Weight in lbs Pre/Post Dialysis Refused With clothes 154.650911071694 BP Diastolic BP Location Tested BP Systolic [...] At Estimated Date of Delivery false Thalassemia (Slovak, Citizen Of [place], Mediterranean, Or Background): MCV < 80 false Neural Tube Defect (Meningom yelocele, Spina Bifida, Or Anencephaly) false Congenital Heart Defect false Down Syndrome false Jae-Sachs (eg, Synagogue, Cajun, Cuban-Kent) f alse Ro Disease false Sickle Cell [...]
--- OUTSIDE RECORDS SUMMARY | 2025-09-16 13:25 | XMS_ITS | Continuity of Care Document ---
Author Organization [facility] Address [address] [place] [address] [place] [address] Assessment No assessment recorded. Plan of Treatment Reminders Order Date Submit Date Provider Last Modified By Organization Details Last Modified Time Details Appointments None recorded. Lab rapid strep group A, throat 2024 [facility], [address] [place] [address] , [place], [address], 5 09:34:56 rapid flu (A+B) 2024 025 [facility], [address] [place] [address] , [place], [address], 5 09:34:56 rapid SARS CoV + SARS CoV 2 Ag, QL IA, respirator y specimen 2024 025 [facility], [address] [place] [address] , [place], [address], 5 09:34:56 Referral None recorded. Procedures None [...] and Address Organization Details Recorded Time Asthma [id number] Active 2017 Megansusannah Hallman APRN [address], [place], [address] , [place] - [facility] 13:21:29 Dysmenor kalia [id number] Completed 201701/06/2025 Megan Hallman APRN [address], [place], [address] , [place] [facility] 13:21:59 Intermit tent asthma 889732841 Completed 201901/06/2025 Megan Hallman APRN [address], [place], [address] , [place] [facility] 13:21:57 Exposure to SARS-CoV -2 Completed 201909/17/2022 Suad Stevens APRN [address], [place], [address] , [place] [facility] 12:21:20 Chest pain 90158515 Completed 202101/06/2025 Megan Hallman APRN [address], [place], [address] , [place] [facility] 13:22:03 COVID-19 729254750 Completed 202101/06/2025 Megan Hallman APRN [address], [place], [address] , [place] [facility] 13:22:01 Irregula r periods 81267075 Completed 202101/06/2025 Megan Hallman APRN [address], [place], [address] , [place] [facility] 13:21:55 Overweig ht in childhoo d 058436243 Completed 202101/06/2025 Megan Hallman APRN [address], [place], [address] , [place] [facility] 13:21:42 Liver function tests outside referenc e range 969462884 Completed 202101/06/2025 Megan Hallman, BUSINESS LAWYER [address], [place], [address] , [place] [facility] 13:21:53 Pain of breast 57010660 Completed 202201/06/2025 Megan Hallman, BUSINESS LAWYER [address], [place], [address] , [place] [facility] 13:21:44 Unintent ional weight gain 43115100742 4104 Completed 202201/06/2025 Megan Hallman, BUSINESS LAWYER [address], [place], [address] , [place] [facility] 13:21:46 Lump in upper outer quadrant of right breast 70957277588 4108 Completed 202201/06/2025 Megan HallmanKEYONNAN [address], [place], [address] , [place] [facility] 13:21:50 Pregnanc y 30399684 Completed 202401/19/2025 Ruperto Clarke, RN [address], [place], [address] , [place] [facility] 15:44:28 Body mass index 25-29 - overweig 802532814 Completed 2024 BMI: 27 starting wgt: 154 HgbA1c: Megan HallmanORLANDO [address], [place], [address] , [place] [facility] 13:31:11 Body mass index 25-29 - overweig 176223929 Active 2024 BMI: 27 starting wgt: 154 HgbA1c: Megan HallmanORLANDO [address], [place], [address] , [place] [facility] 13:31:11 Overweig 213124684 Active 2024 Megan HallmanORLANDO [address], [place], [address] , [place] [facility] 13:24:47 Antenata l screenin g Completed 2024 Mat21- desires AFP- desires CF/SMA- drawn Megan Hallman, BUSINESS LAWYER [address], [place], [address] , [place] - [facility] 5 13:34:54 Contrace ptive counseli ng Completed 2024 none Megan Hallman, BUSINESS LAWYER [address], [place], [address] , [place] - [facility] 13:30:39 Immuniza tion due 489103573 Completed 2024 Covid- declined Tdap- Flu- declined 01/06/25 Megan Hallman, BUSINESS LAWYER [address], [place], [address] , [place] - [facility] 13:30:53 Recreati onal drug user 936548158 Completed 2024 obhx UDS+ for THC [ ] rpt at 28wks Nissa bates DO [address], [place], [address] , [place] - [facility] 5 11:42:19 Recreati onal drug user 667302694 Active 2024 obhx UDS+ for THC [ ] rpt at 28wks Megan Hallman, BUSINESS LAWYER [address], [place], [address] , [place] - [facility] 5 23:09:13 Gestatio n period, 7 weeks 48883776 Completed 202401/24/2025 Megan Hallman, BUSINESS LAWYER [address], [place], [address] , [place] - [facility] 5 23:09:05 Gestatio n period, 8 weeks 06379316 Completed 202401/24/2025 Megan Hallman, BUSINESS LAWYER [address], [place], [address] , [place] - [facility] 5 23:09:09 Finding of urine substanc e level 090133877 Active 2024 Megan Hallman, BUSINESS LAWYER [address], [place], [address] , [place] - [facility] 23:08:58 Vaginal bleeding 173863886 Active 2024 Megan Hallman, BUSINESS LAWYER [address], [place], [address] , [place] [facility] 5 23:09:18 Acute urinary tract infectio n 302192287 Active 202401/06/25 GBS in urine Megan Hallman, BUSINESS LAWYER [address], [place], [address] , [place] [facility] 5 23:09:38 Acute pharyngi tis 441591192 Active 2024 Adam Diaz, DO [address], [place], [address] , [place] [facility] 09:31:26 Problem [...] 16:09:08 006 Remove tonsils and adenoids completed [facility] [address], [place], [address], [place] [facility] 09/12/2016 13:31:01 Imaging [...] 02/10/20 10;Indic ation: Acute Otitis Media - (4921 00);Prin yung: 01/31/20 10 Not Available Not [...] Updated DateTime 5 160.02 cm 32.8 kg/m2 88813.5 9 g 98.5 [degF] 90 /min 99 % 4 114/78 mm[Hg] Nissa Reddy [place] - [facility] 5 09:23:01 Social History Question Answer Notes LastModified by Organizat ion Details LastModified Time Tobacco Smoking Status Never Smoker Nissa hernandez, [place] - [facility] 05/28/2023 10:43:32 Do You Have An Advance Directive? No [email or web address] Information not available 03/17/2018 Animal Exposure? Yes Informat ion not available 10/17/2019 Are You Blind Or Do You Have Difficulty Seeing? No [email or web address] Information not available 03/17/2018 Is Blood Transfusion Acceptable In An Emergency? Yes Information not available 03/17/2018 What Is Your Level Of Caffeine Consumption? Occasional [email or web address] Information not available 09/12/2016 How Much Tobacco Do You Chew? None Information not available 09/12/2016 In The 14 Days Before Symptom Onset, Have You Had Close Contact With A Laboratory-confi rmed COVID-19 While That Case Was Ill? No [email or web address] Information not available 09/17/2022 In The 14 Days Before Symptom Onset, Have You Had Close Contact With A Person Who Is Under Investigation For COVID-19 While That Person Was Ill? No Information not available 09/17/2022 Have You Been To An Area Known To Be High Risk For COVID-19? No [email or web address] Information not available 09/17/2022 Are You Deaf Or Do You Have Serious Difficulty Hearing? No [email or web address] Information not available 03/17/2018 What Type Of Diet Are You Following? REGULAR [email or web address] Information not available 09/12/2016 Which Illicit Or Recreational Drugs Have You Used? THC Stopped When She Found Out She Was Information not available 01/13/2025 Have You Processed Blood Or Body Fluids From An Ebola Virus Disease Patient Without Appropriate PPE? No [email or web address] Information not available 09/17/2022 Do You Reside In Or Have You Traveled To An Area Where Ebola Virus Transmission Is Active? No Information not available 09/17/2022 What Is The Highest Grade Or Level Of School You Have Completed Or The Highest Degree You Have Received? [id number] [email or web address] Information not available 01/06/2025 How Many Days Of Moderate To Strenuous Exercise, Like A Brisk Walk, Did You Do In The Last 7 Days? 0 [email or web address] Information not available 03/17/2018 On Those Days That You Engage In Moderate To Strenuous Exercise, How Many Minutes, On Average, Do You Exercise? 0 Information not available 03/17/2018 Have There Been Any Changes To Your Family Or Social Situation? No [email or web address] Information not available 09/17/2022 How Hard Is It For You To Pay For The Very Basics Like Food, Housing, Medical Care, And Heating? [id number] [email or web address] Information not available 03/17/2018 What Is The Fluoride Status Of Your Home? Non-fluoridat ed [email or web address] Information not available 09/17/2022 Are There Any Guns Present In Your Home? No Information not available 10/17/2019 Have You Recently Or Are You Planning To Travel To An Area With Zika Virus? No [email or web address] Information not available 09/17/2022 Do You Use Insect Repellent Routinely? Yes Information not available 10/17/2019 Live Alone Or With Others? With Others [email or web address] Information not available 03/17/2018 Do You Have A Medical Power Of Rcp? No [email or web address] Information not available 09/17/2022 What Was The Date Of Your Most Recent Tobacco Screening? 01/06/2025 [email or web address] Information not available 01/06/2025 How Many Children Do You Have? 0 [email or web address] Information not available 03/17/2018 Performs Monthly Self-breast Exam? Yes [email or web address] Information not available 03/17/2018 Do You Use Protection During Sex? Always [email or web address] Information not available 03/17/2018 What Is Your Relationship Status? Single [email or web address] Information not available 03/17/2018 Do You Use Your Seat Belt Or Car Seat Routinely? Yes [email or web address] Information not available 09/12/2016 Seat Belts Used Routinely Yes [email or web address] Information not available 03/17/2018 Are You Sexually Active? Yes Information not available 03/17/2018 Do You Have Smoke And Carbon Monoxide Detectors In Your Home? Yes [email or web address] Information not available 09/12/2016 Are You Passively Exposed To Smoke? No Information not available 09/17/2022 How Much Tobacco Do You Smoke? No [email or web address] Information not available 05/28/2023 General Stress Level Low [email or web address] Information not available 03/17/2018 Do You Use Sunscreen Routinely? Yes [email or web address] Information not available 09/12/2016 Has Tobacco Cessation Counseling Been Provided? Yes Information not available 01/06/2025 On What Date Was Tobacco Cessation Counseling Provided? 01/06/2025 [email or web address] Answered No To The Tobacco Cessation Counseling Provided Question On 03/17/2018. Information not available 01/06/2025 How Many Years Have You Smoked Tobacco? 0 [email or web address] Information not available 09/12/2016 Have You Used IV Drugs? No Information not available 01/06/2025 Do You Have Difficulty Walking Or Climbing Stairs? No [email or web address] Information not available 03/17/2018 Year In School 9 [email or web address] Informatio n not available 03/17/2018 What Contraceptive Method Was Reported At Start Of This Visit? None [email or web address] Information not available 05/28/2023 What Contraceptive Method Was Reported At End Of This Visit? None [email or web address] Information not available 01/06/2025 Do You Want To Talk About Contraception Or Prevention During Your Visit Today? No - This Question Does Not Apply To Me/I Prefer Not To Answer [email or web address] Information not available 01/06/2025 How Many Years Have You Used E-cigarettes Or Vape? 4 Information not available 01/06/2025 Do You Have Any Future Plans To Get ? Yes, I Want To Become [email or web address] Information not available 05/28/2023 What Is Your Reason For Having No Contraceptive Method At Start Of This Visit? Other [email or web address] Information not available 01/06/2025 What Is Your Reason For Having No Contraceptive Method At End Of This Visit? Other [email or web address] Information not available 01/06/2025 Sex: Female Functional Status Question Answer Note LastModified by Organizat ion Details LastModified Time Do you or have you ever used smokeless tobacco? Never used smokeless tobacco [email or web address] Information not available 01/06/2025 Are you currently employed? Yes [email or web address] Information not available 01/06/2025 Do you have transportation difficulties? No [email or web address] Information not available 01/06/2025 Are you able to care for yourself independently? Yes [email or web address] Information not available 09/17/2022 Do you have difficulty dressing, bathing, grooming, or toileting? No [email or web address] Information not available 03/17/2018 Do you or have you ever used e-cigarettes or vape? Former user of electronic cigarettes Information not available 01/13/2025 What is your exercise level? Occasional [email or web address] Information not available 09/12/2016 Do you use any illicit or recreational drugs? Yes Information not available 01/06/2025 Do you or have you ever used any other forms of tobacco or nicotine? Yes [email or web address] Information not available 09/17/2022 What is your level of alcohol consumption? None [email or web address] Information not available 09/12/2016 What is your status? Information no t available 01/06/2025 Are you able to walk independently without assistance or assistive devices? YESWOREST [email or web address] Information not available 03/17/2018 Do you have difficulty doing errands alone? No [email or web address] Information not available 03/17/2018 What is your occupation? [employer] [email or web address] Information not available 01/06/2025 Mental Status Question Answer Note LastModified by Organizat ion Details LastModified Time Do you feel stressed (tense, restless, nervous, or anxious, or unable to sleep at night)? [id number] [email or web address] Information not available 03/17/2018 Do you have difficulty concentrating, remembering or making decisions? No Information no t available 03/17/2018 Family History Relationship Description Onset Age of this Age Resolved Age Notes LastModified by Organization Details LastModified Time Maternal Grandmother Heart disease [email or web address] Not available 09/12 13:14:22 Maternal Grandmother Neoplasm of brain [email or web address] Not available 2024 12:51:36 Mother Hyperlipidem ia [email or web address] Not available 2024 12:51:36 Mother Essential hypertension [email or web address] Not available 01/2025 12:51:36 Mother Diabetes mellitus Not available 2017 15:46:12 Maternal Grandfather Myocardial [...] colitis N Cerebrovascular Disease N Depression N Guillain-[place] N Sleep Apnea N Aneurysm N Bronchitis [...] or pediatric 06/07/20 02 completed Not Available [facility] 07/13/2016 13:14:13 Hep B, adolescent or pediatric 07/07/20 02 completed Not Available [facility] 07/13/2016 13:14:13 Hep B, adolescent or pediatric 05/10/20 03 completed Not Available [facility] 07/13/2016 13:14:13 DTaP 07/07/20 02 completed Not Available [facility] 07/13/2016 13:14:13 DTaP 09/12/20 02 completed Not Available [facility] 07/13/2016 13:14:13 DTaP 11/10/19 03 completed Not Available [facility] 07/13/2016 13:14:13 DTaP 08/11/20 03 completed Not Available [facility] 07/13/2016 13:14:13 DTaP 05/11/20 06 completed Not Available [facility] 07/13/2016 13:14:14 Hib (PRP-OMP) 07/07/20 02 completed TRUE [place] - [facility] 12/28/2024 08:48:32 Hib (PRP-OMP) 09/12/20 02 completed Nissa Almazanann null, [place] - [facility] 12/28/2024 08:48:32 Hib (PRP-OMP) 05/10/20 03 completed Nissa Sher null, [place] - [facility] 12/28/2024 08:48:32 IPV 07/07/20 02 completed Not Available [facility] 07/13/2016 13:14:14 IPV 09/12/20 02 completed Not Available [facility] 07/13/2016 13:14:14 IPV 05/10/20 03 completed Not Available [facility] 07/13/2016 13:14:24 IPV 05/11/20 06 completed Not Available [facility] 07/13/2016 13:14:24 MMR 08/11/20 03 completed Not Available [facility] 07/13/2016 13:14:24 MMR 05/11/20 06 completed Not Available [facility] 07/13/2016 13:14:24 meningococcal MCV4P 03/31/20 14 completed Not Available [facility] 11/05/2019 02:21:32 HPV, unspecified formulation 03/31/20 14 completed Nissa Alma[place]ann [place], [place] - [facility] 12/28/2024 08:48:32 HPV, unspecified formulation 05/12/20 14 completed Nissa Sher [place] [facility] 12/28/2024 08:48:32 HPV, unspecified formulation 10/02/20 14 completed Nissa Sher [place] [facility] 12/28/2024 08:48:32 Tdap 03/31/20 14 completed Not Available [facility] 11/05/2019 02:21:32 Influenza, split virus, quadrivalent, preservative 09/17/20 22 cancelled patient objection Suad Stevens, BUSINESS LAW[employer]ER [address], [place], [address], [place] [facility] 09/17/2022 15:04:47 Hep A, ped/adol, 2 dose 12/08/19 18 completed Not Available [facility] 10/22/2019 03:54:54 meningococcal MCV4P 05/07/20 18 completed Not Available [facility] 10/22/2019 03:55:08 Hep A, ped/adol, 2 dose 07/20/20 18 completed Not Available [facility] 10/22/2019 03:55:14 Influenza, split virus, quadrivalent, preservative 10/19/19 20 completed Not Available [facility] 10/22/2019 03:56:18 Past Encounters Encounter ID Performer Location Encounter Start Date Encounter Closed Date Diagnosis/Indication Diagnosis SNOMED-CT Code Diagnosis ICD10 Code Diagnosis IMO Codes Diagnosis Note [id number] Adam Diaz DO [place] [address] [place] [address] 06/30/2025 09:10:48 06/30/2025 10:08:24 Acute pharyngitis 111401069 J02.9 [id number] 25 yo F (21 week ), presenting [...] Member ID Guarantor Name 06/30/2025 1 [employer] [facility] (MEDICAID HMO) Marianne Cole [id number] Bri Cole Notes Date Note Type Note [...] weeks , is receiving OBGYN care at [facility] in [place]. Adam Diza, DO [address], [place], [address], [place] [facility] 06/30/2025 10:47:54 OBGyn Episode No OBEpisode recorded.
[2025-09-16 13:35] VITALS: BP 102/52; PULSE 97; RESP 18; TEMP 36.7; O2SAT 98; BMI 32.4
[2025-09-16 13:36] VITALS: BMI 32.4
[2025-09-16 14:00] LABS: Microscopic, Urine URINE MICROSCOPIC (MICROSCOPIC)
[2025-09-16 14:17] LABS: Bilirubin,Urine Negative (Negative); Color,Urine YELLOW (Yellow); Glucose,Urine (UA) Negative (Negative); Ketones,Urine Negative (Negative); Leukocyte Esterase,Urine Negative (Negative); PH,Urine 6.0 (5.0-8.5); Protein,Urine Negative (Negative); Specific Gravity, Urine >= 1.030 (1.005-1.030); Urobilinogen,Urine 0.2 EU/dl (0.2)
[2025-09-16] MEDS: SODIUM CHLORIDE 0.9% 10ML FLUSH SYRINGE 10 ML IV (14:23)
[2025-09-16] MEDS: LACTATED RINGERS 1000ML 1,000 ML 999 ML IV (14:23)
[2025-09-16] MEDS: TERBUTALINE SULFATE 1MG/ML VIAL 0.25 MG SUBCUT (14:47)
[2025-09-16 15:05] LABS: Bacteria,Urine Trace /lpf; WBC,Urine Occasional #/hpf (0-3)
[2025-09-16 15:46] LABS: Fetal Fibronectin (Rapid) Negative (Negative)
--- NOTE | 2025-09-16 15:51 | US_ITS ---
PROCEDURE INFORMATION: Exam: US Biophysical Profile Without Non-Stress Test Exam date and time: 09/16/2025 4:03 PM Age: 25 years old Clinical indication: Other: Non-reactive nst; TECHNIQUE: Imaging protocol: US biophysical profile without non-stress testing. COMPARISON: US OB FOLLOW UP 08/21/2025 9:25 AM FINDINGS: heart rate: 132 bpm presentation and position: Cephalic presentation Placenta: Anterior placenta Amniotic fluid index: ANA is 7.83 cm.. Largest pocket 4.58 cm BIOPHYSICAL PROFILE: breathing (BPP): 2 /2 gross body movement (BPP): 2 /2 tone (BPP): 2 /2 Amniotic fluid (BPP): 2 /2 Biophysical profile score (BPP): 8 /8 Umbilical cord vessel number: Three-vessel cord kidneys Dilatation of the right collecting system 4.96 mm. Dilatation of the left collecting system 4.85 mm MATERNAL ANATOMY: Cervix: Cervical length measures 2.69 cm. Dilatation of the right collecting system 4.96 mm. Dilatation of the left collecting system 4.85 mm IMPRESSION: Biophysical profile score is 8 out of 8. Dilatation of the right collecting system 4.96 mm. Dilatation of the left collecting system 4.85 mm
== END 2025-09-16 17:06 | disposition home or self-care (01) ==
LOC: OBOUT 13:24 → OB 13:25
PROVIDERS: PCP Obstetrics & Gynecology; Visit Provider Obstetrics & Gynecology
DX: O28.3 Abnormal ultrasonic finding on antenatal screening of mother (principal); O28.8 Other abnormal findings on antenatal screening of mother; O99.891 Other specified diseases and conditions complicating pregnancy; M54.9 Dorsalgia, unspecified; N89.8 Other specified noninflammatory disorders of vagina; R10.9 Unspecified abdominal pain; Z3A.32 32 weeks gestation of pregnancy
CPT/HCPCS: 76819; 81001; 82731; 99214; J3105; J7120

== ENCOUNTER 2025-10-03 13:30 | Outpatient (CLI) | payer OTHER, SELFPAY ==
--- NOTE | 2025-10-03 13:45 | US_ITS ---
PROCEDURE: US OB FOLLOW UP CLINICAL INDICATION: growth COMPARISON: US US OB /MATERNAL DETAIL from 06/20/2025 US US OB FOLLOW UP from 07/18/2025 US US OB FOLLOW UP from 08/21/2025 US US OB BIOPHYSICAL PROFILE from 09/16/2025 FINDINGS: Transabdominal sonographic images of the pelvis were obtained. The following parameters are obtained: From her established due date she is 34weeks 4days Viable fetus in the cephalic presentation with an anterior placenta grade 1-2. There are several placental lakes. The cervix measures 3.41 cm in length heart rate: 138bpm bpm. Average ultrasound age 34 weeks 2 days Estimated weight 2323 grams, 5 lb 2 oz BPD: 33weeks 5days, 25 percentile HC: 35weeks 3days, 35 percentile AC: 33weeks 5days, 28 percentile FL: 34weeks 2days, 33 percentile HC/AC: 1.06 FL/BPD: 0.8 FL/AC: 0.22 Growth percentile: 29 Amniotic fluid index: 8.85cm, MVP 4.48 cm No obvious anomalies evident. profile seen, stomach, bladder, kidneys, three-vessel cord, four chamber heart appear normal. IMPRESSION: 1. Viable fetus in the cephalic presentation with an anterior placenta grade 1-2. There are several small placental lakes. 2. The fluid is within normal limits with an amniotic fluid index 8.85 cm, MVP 4.48 cm. 3. There has been good interval growth with the fetus currently 29th percentile. 4. Limited anatomical scan appears normal. Dictated by: Santos Pool MD 10/04/2025 09:42 Santos Pool MD in OV 10/04/2025 09:42
== END 2025-10-03 23:59 | disposition home or self-care (01) ==
LOC: RAD 13:30
PROVIDERS: PCP Obstetrics & Gynecology; Visit Provider Obstetrics & Gynecology
DX: O24.419 Gestational diabetes mellitus in pregnancy, unspecified control (principal); Z3A.34 34 weeks gestation of pregnancy
CPT/HCPCS: 76816